=== PATIENT | male | born 1950 | race Caucasian/White ===

== ENCOUNTER 2017-08-21 14:24 | Emergency (ER) | payer MEDICARE, BC, OTHER ==
--- NOTE | 2017-08-21 15:01 | ER Document Report ---
ED Medical Screen (RME) - General Chief Complaint: Neck Pain >24hrs old Stated Complaint: NECK PAIN Notes: Patient comes in complaining of burning pain across both shoulders left-sided neck pain and circumferential squeezing pain of his neck. He did have cervical fusion done 1 year ago. I spoke with patient's neurosurgeon, Dr. bernal. He requests that patient have full C-spine x-rays with flexion-extension views. TRAVEL OUTSIDE OF THE [place] IN LAST 30 DAYS: No - Related Data Allergies/Adverse Reactions: No Known Allergies Allergy (Verified 08/21/17 14:26) Past Medical History - Social History Chew tobacco use (# tins/day): No Frequency of alcohol use: None Drug Abuse: None - Past Medical History Cardiac Medical History: Reports: Hx Heart Attack, Hx Hypercholesterolemia, Hx Hypertension Endocrine Medical History: Reports: Hx Diabetes Mellitus Type 1, Hx Diabetes Mellitus Type 2 Renal/ Medical History: Denies: Hx Peritoneal Dialysis GI Medical History: Reports: Hx Gastroesophageal Reflux Disease Past Surgical History: Reports: Hx Cardiac Surgery - CABG x3, Hx Coronary Artery Bypass Graft - 93, Hx Coronary Stent, Hx Tonsillectomy - Immunizations Immunizations up to date: Yes Hx Diphtheria, Pertussis, Tetanus Vaccination: Yes - 2000 Physical Exam - Vital signs Vitals: Temp Pulse Resp BP Pulse Ox 97.8 F 67 14 145/68 H 99 08/21/17 14:30 08/21/17 14:30 08/21/17 14:30 08/21/17 14:30 08/21/17 14:30 Course - Vital Signs Vital signs: Temp Pulse Resp BP Pulse Ox 97.8 F 67 14 145/68 H 99 08/21/17 14:30 08/21/17 14:30 08/21/17 14:30 08/21/17 14:30 08/21/17 14:30
--- NOTE | 2017-08-21 15:52 | RADIOLOGY REPORT (SQ) ---
EXAM DESCRIPTION: CERV SP 6 OR MORE COMPLETED DATE/TIME: 08/21/2017 3:22 pm REASON FOR STUDY: pain COMPARISON: None. NUMBER OF VIEWS: Seven views. TECHNIQUE: AP, lateral, obliques, flexion, extension, and odontoid radiographic images acquired of t he cervical spine. Additional swimmer's view LIMITATIONS: None. FINDINGS: MINERALIZATION: Osteopenic ALIGNMENT: Anatomic. FLEXION/EXTENSION: No instability. VERTEBRAE: Vertebral bodies of normal height. DISCS: Post fusion with metallic disc spacers, anterior fixation plate and anchoring screws at the C5 -C6 and C6-7 levels. FORAMINA: Asymmetric right-sided C3-4 facet arthropathy causes moderate to high-grade right C3-4 fora marielena narrowing. LATERAL AND POSTERIOR ELEMENTS: Lateral masses, and spinous processes without significant findings. Bilateral facet arthropathy right greater than left at C3-4 HARDWARE: None in the spine. SOFT TISSUES: No masses or calcifications. Lung apices clear. OTHER: No other significant finding. IMPRESSION: No acute findings. Old cervical spine fusion. Moderate to high-grade right C3-4 forami nal narrowing. NO INSTABILITY ON FLEXION/EXTENSION. TECHNICAL DOCUMENTATION: JOB ID: [id number] [email or web address]- All Rights Reserved
--- NOTE | 2017-08-21 16:30 | ER Document Report ---
ED General - General Chief Complaint: Neck Pain >24hrs old Stated Complaint: NECK PAIN Time Seen by Provider: 08/21/17 15:22 Mode of Arrival: Ambulatory Information source: Patient, Relative TRAVEL OUTSIDE OF THE [place] IN LAST 30 DAYS: No - HPI Patient complains to provider of: complains of burning to upper back of neck and bottom part of back of head Onset: Just prior to arrival Onset/Duration: Gradual Quality of pain: No pain Pain Level: Denies Associated symptoms: None Exacerbated by: Denies Relieved by: Denies Similar symptoms previously: No Recently seen / treated by doctor: No Notes: This 66-year-old gentleman presents emergency department ambulatory. States that he has a burning sensation to the upper portion of his neck in the back as well as the lower portion in the back of his head. Denies any other complaints. He states about [address] rosado did do a C-spine fusion on his lower C-spine. He denies any trauma. He denies any weakness in his arms or legs. He denies shortness of breath. States that he does have a paresthesia that runs down the lateral portion of his biceps on his left extremity that is chronic since an infection of his sternotomy years ago. - Related Data Allergies/Adverse Reactions: No Known Allergies Allergy (Verified 08/21/17 14:26) Past Medical History - General Information source: Patient - Social History Smoking Status: Former Smoker Chew tobacco use (# tins/day): No Frequency of alcohol use: None Drug Abuse: None Lives with: Family Family History: CAD, Hyperlipidemia, Hypertension, Malignancy Patient has suicidal ideation: No Patient has homicidal ideation: No - Past Medical History Cardiac Medical History: Reports: Hx Heart Attack, Hx Hypercholesterolemia, Hx Hypertension Endocrine Medical History: Reports: Hx Diabetes Mellitus Type 1, Hx Diabetes Mellitus Type 2 Renal/ Medical History: Denies: Hx Peritoneal Dialysis GI Medical History: Reports: Hx Gastroesophageal Reflux Disease Musculoskeltal Medical History: Reports Other - 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 Skin Medical History: Reports None Psychiatric Medical History: Reports: None Past Surgical History: Reports: Hx Cardiac Surgery - CABG x3, Hx Coronary Artery Bypass Graft - 93, Hx Coronary Stent, Hx Tonsillectomy - Immunizations Immunizations up to date: Yes Hx Diphtheria, Pertussis, Tetanus Vaccination: Yes - 2000 Review of Systems - Review of Systems Constitutional: No symptoms reported EENT: No symptoms reported Cardiovascular: No symptoms reported Respiratory: No symptoms reported Gastrointestinal: No symptoms reported Genitourinary: No symptoms reported Male Genitourinary: No symptoms reported Musculoskeletal: No symptoms reported. denies: Neck pain Skin: No symptoms reported Hematologic/Lymphatic: No symptoms reported Neurological/Psychological: Tingling Physical Exam - Vital signs Vitals: Temp Pulse Resp BP Pulse Ox 97.8 F 67 14 145/68 H 99 08/21/17 14:30 08/21/17 14:30 08/21/17 14:30 08/21/17 14:30 08/21/17 14:30 - Notes Notes: PHYSICAL EXAMINATION: GENERAL: Well-appearing, well-nourished and in no acute distress. HEAD: Atraumatic, normocephalic. Patient does have paresthesias to his C3 and C4 dermatome in his posterior head and neck area EYES: Pupils equal round and reactive to light, extraocular movements intact, sclera anicteric, conjunctiva are normal. ENT: Nares patent, oropharynx clear without exudates. Moist mucous membranes. NECK: Normal range of motion, supple without lymphadenopathy. No pain with full range of motion LUNGS: Breath sounds clear to auscultation bilaterally and equal. No wheezes rales or rhonchi. HEART: Regular rate and rhythm without murmurs ABDOMEN: Soft, nontender, nondistended abdomen. No guarding, no rebound. No masses appreciated. Musculoskeletal: Normal range of motion, no pitting or edema. No cyanosis. 5 out of 5 strength bilateral upper and lower extremities. NEUROLOGICAL: Cranial nerves grossly intact. Normal speech, normal gait. Normal sensory, motor exams. Tendon reflexes within normal limits upper extremities bilaterally. Patient does have paresthesia to his left lateral bicep area. He states this is chronic PSYCH: Normal mood, normal affect. SKIN: Warm, Dry, normal turgor, no rashes or lesions noted. Course - Re-evaluation Re-evalutation: 08/21/17 16:49 Dr. rosado's office. I did speak to the nurse Angel there. I stated that based on clinical exam as well as findings on the x-ray results I do think that the patient can have an outpatient MRI with results to Dr. rosado and follow-up with him. He stated stated that was fine. I went in and talked to the patient as well as his family member. I did give him the number to MRI and he was making a phone call to make an appointment. I had talked to MRI and they had given me the number and said for him to call to make an appointment. Patient is to call Dr. naranjo office as soon as he gets his MRI appointment and make an appointment with Dr. rosado for a few days after his MRI. Did tell patient to return to the emergency department if he has any weakness in his arms or legs fevers or any other concerns. Patient verbalized understanding he was discharged home in stable condition agreeable to the discharge plan - Vital Signs Vital signs: Temp Pulse Resp BP Pulse Ox 97.8 F 67 14 145/68 H 99 08/21/17 14:30 08/21/17 14:30 08/21/17 14:30 08/21/17 14:30 08/21/17 14:30 - Diagnostic Test Radiology reviewed: Image reviewed, Reports reviewed Radiology results interpreted by me: 08/21/17 16:49 EXAM DESCRIPTION: CERV SP 6 OR MORE COMPLETED DATE/TIME: 08/21/2017 3:22 pm REASON FOR STUDY: pain COMPARISON: None. NUMBER OF VIEWS: Seven views. TECHNIQUE: AP, lateral, obliques, flexion, extension, and odontoid radiographic images acquired of the cervical spine. Additional swimmer's view LIMITATIONS: None. FINDINGS: MINERALIZATION: Osteopenic ALIGNMENT: Anatomic. FLEXION/EXTENSION: No instability. VERTEBRAE: Vertebral bodies of normal height. DISCS: Post fusion with metallic disc spacers, anterior fixation plate and anchoring screws at the C5-C6 and C6-7 levels. FORAMINA: Asymmetric right-sided C3-4 facet arthropathy causes moderate to high- grade right C3-4 foraminal narrowing. LATERAL AND POSTERIOR ELEMENTS: Lateral masses, and spinous processes without significant findings. Bilateral facet arthropathy right greater than left at C3-4 HARDWARE: None in the spine. SOFT TISSUES: No masses or calcifications. Lung apices clear. OTHER: No other significant finding. IMPRESSION: No acute findings. Old cervical spine fusion. Moderate to high- grade right C3-4 foraminal narrowing. NO INSTABILITY ON FLEXION/EXTENSION. TECHNICAL DOCUMENTATION: JOB ID: [id number]- All Rights Reserved Dictated by: ELA JEAN MD [id number] CC: GERMAINE HOUSTON MD Discharge - Discharge Clinical Impression: parasthesia occiput Clinical Impression: (Ruled Out): Arm paresthesia, left, Condition: Stable Disposition: HOME, SELF-CARE Additional Instructions: Call [phone] to schedule your MRI. Call Dr. Rosado [phone] to schedule an appointment after your MRI is complete. Return to the emergency department immediately if you have weakness in your arms or legs or any other neurological symptoms. Forms: Follow-Up Radiology Testing Referrals: ASHER LUDWIG MD [Primary Care Provider] - Follow up as needed
[2017-08-21 16:50] VITALS: BP 133/69
== END 2017-08-21 16:45 | disposition home or self-care (01) ==
LOC: ER 14:24
DX: M48.02 Spinal stenosis, cervical region (principal); R20.2 Paresthesia of skin; Z98.1 Arthrodesis status; I25.2 Old myocardial infarction; I10 Essential (primary) hypertension; E11.9 Type 2 diabetes mellitus without complications; Z95.1 Presence of aortocoronary bypass graft; Z95.5 Presence of coronary angioplasty implant and graft; Z87.891 Personal history of nicotine dependence
CPT/HCPCS: 72050; 99284

== ENCOUNTER → 2017-08-23 | Outpatient (CLI) | payer MEDICARE, BC, OTHER ==
--- NOTE | 2017-08-23 16:35 | RADIOLOGY REPORT (SQ) ---
EXAM DESCRIPTION: MRI CERVICAL SPINE WITHOUT COMPLETED DATE/TIME: 08/23/2017 2:10 pm REASON FOR STUDY: MODERATE C SPINE FORAMINAL NARROWING/HX OF FUSION M54.2 CERVICALGIA COMPARISON: Cervical spine plain films 08/21/2017 TECHNIQUE: Sagittal and Axial imaging includes T1, T2, STIR and gradient echo sequences. LIMITATIONS: None. FINDINGS: ALIGNMENT: Normal. VERTEBRAE: Intact. BONE MARROW: Normal. No marrow replacement or reactive changes. DISCS: Diffuse decreased T2 weighted intervertebral disc signal HARDWARE: Post fusion with hardware at C5-6 and C6-7 CORD AND BASE OF BRAIN: Normal in size and signal intensity. SOFT TISSUES: No soft tissue masses. C1-C2: No significant spinal stenosis. C2-C3: No significant spinal stenosis or exit foraminal stenosis. C3-C4: Mild posterior disc bulge and bony spurring is present right greater than left. No central st enosis. High-grade right foraminal narrowing from facet and uncovertebral hypertrophy. No left fora marielena narrowing. C4-C5: Minimal posterior disc bulging. No central stenosis. Mild right foraminal narrowing from fac et and uncovertebral hypertrophy. No left foraminal stenosis C5-C6: Post fusion. No central stenosis or left foraminal narrowing. Mild right foraminal narrowing from facet and uncovertebral hypertrophy C6-C7: Post fusion. No central stenosis or left foraminal narrowing. Mild right foraminal stenosis. C7-T1: No significant spinal stenosis or exit foraminal stenosis. UPPER THORACIC: Incompletely imaged. No significant spinal stenosis or exit foraminal stenosis. OTHER: No other significant finding. IMPRESSION: Right-sided foraminal narrowing most pronounced at C3-4 TECHNICAL DOCUMENTATION: JOB ID: [id number]- All Rights Reserved
== END ==
LOC: RAD 12:14
PROVIDERS: ATTEND Emergency Medicine
DX: M54.2 Cervicalgia (principal); Z98.1 Arthrodesis status
CPT/HCPCS: 72141

== ENCOUNTER 2017-09-25 10:40 | Emergency (ER) | payer MEDICARE, BC, OTHER ==
--- NOTE | 2017-09-25 12:11 | ER Document Report ---
ED Medical Screen (RME) - General Chief Complaint: General Weakness Stated Complaint: WEAKNESS Time Seen by Provider: 09/25/17 12:08 Notes: Patient states that he has been feeling weak lately and has had a low heart rate. He states he saw his golf course laborer yesterday. He states his golf course laborer put him on carvedilol and told him that this was strengthen his heart and possibly raise the heart rate. However he states he has been taking his pulse today and has been low and he has been feeling weak like he may pass out. TRAVEL OUTSIDE OF THE [place] IN LAST 30 DAYS: No - Related Data Allergies/Adverse Reactions: No Known Allergies Allergy (Verified 09/25/17 10:42) Past Medical History - Social History Frequency of alcohol use: None Drug Abuse: None - Past Medical History Cardiac Medical History: Reports: Hx Heart Attack, Hx Hypercholesterolemia, Hx Hypertension Endocrine Medical History: Reports: Hx Diabetes Mellitus Type 1, Hx Diabetes Mellitus Type 2 Renal/ Medical History: Denies: Hx Peritoneal Dialysis GI Medical History: Reports: Hx Gastroesophageal Reflux Disease Past Surgical History: Reports: Hx Cardiac Surgery - CABG x3, Hx Coronary Artery Bypass Graft - 93, Hx Coronary Stent, Hx Tonsillectomy - Immunizations Immunizations up to date: Yes Hx Diphtheria, Pertussis, Tetanus Vaccination: Yes - 2000 Physical Exam - Vital signs Vitals: Temp Pulse Resp BP Pulse Ox 97.8 F 56 L 16 163/59 H 100 09/25/17 10:51 09/25/17 10:51 09/25/17 10:51 09/25/17 10:51 09/25/17 10:51 Course - Vital Signs Vital signs: Temp Pulse Resp BP Pulse Ox 97.8 F 56 L 16 163/59 H 100 09/25/17 10:51 09/25/17 10:51 09/25/17 10:51 09/25/17 10:51 09/25/17 10:51
[2017-09-25 12:48] LABS: ABSOLUTE EOSINOPHILS # (AUTO) 0.2 10^3/uL (0.0-0.6); ABSOLUTE LYMPHOCYTES (AUTO) 1.6 10^3/uL (0.5-4.7); ABSOLUTE MONOCYTES (AUTO) 0.6 10^3/uL (0.1-1.4); ABSOLUTE NEUT (AUTO) 4.9 10^3/uL (1.7-8.2); BASOPHILS % (AUTO) 0.6 % (0-2); EOSINOPHILS % (AUTO) 2.8 % (0-6); HEMOGLOBIN 14.4 g/dL (13.5-17.0); LYMPHOCYTES % (AUTO) 22.1 % (13-45); MEAN CORPUSCULAR HEMOGLOBIN 28.9 pg (27.0-33.4); MEAN CORPUSCULAR HGB CONC 34.3 g/dL (32.0-36.0); MEAN CORPUSCULAR VOLUME 84 fl (80-97); MONOCYTES % (AUTO) 7.9 % (3-13); PLATELET COUNT 169 10^3/uL (150-450); RED BLOOD COUNT 4.98 10^6/uL (4.35-5.55); RED CELL DISTRIBUTION WIDTH 13.7 % (11.5-14.0); SEGMENTED NEUTROPHILS % (AUTO) 66.6 % (42-78); TOTAL CELLS COUNTED % (AUTO) 100 %; WHITE BLOOD COUNT 7.3 10^3/uL (4.0-10.5)
[2017-09-25 13:04] LABS: ALANINE AMINOTRANSFERASE 46 U/L (21-72); ALBUMIN 4.9 g/dL (3.5-5.0); ALKALINE PHOSPHATASE 101 U/L (38-126); ANION GAP 10 (5-19); ASPARTATE AMINO TRANSFERASE 26 U/L (17-59); BILIRUBIN,DIRECT 0.3 mg/dL (0.0-0.4); BILIRUBIN,TOTAL 0.7 mg/dL (0.2-1.3); BLOOD UREA NITROGEN 13 mg/dL (7-20); CALCIUM 10.3 mg/dL (8.4-10.2); CARBON DIOXIDE 30 mmol/L (22-30); CHLORIDE 103 mmol/L (98-107); GLUCOSE 185 mg/dL (75-110); POTASSIUM 4.2 mmol/L (3.6-5.0); SODIUM 142.7 mmol/L (137-145); TOTAL PROTEIN 7.5 g/dL (6.3-8.2)
--- NOTE | 2017-09-25 14:31 | ER Document Report ---
ED Dizziness/Weakness - General Chief Complaint: General Weakness Stated Complaint: WEAKNESS Time Seen by Provider: 09/25/17 12:08 Notes: 67-year-old male to the emergency department chief complaint of feeling weak earlier today. Was recently started on carvedilol at a low dose. Notices his heart rate is gotten lower. Did not think that was supposed to happen. Had a three-way bypass of his coronary arteries in 1992. Followed by Dr. Buck in [facility] for cardiology issues. Denies any chest pain. Denies any shortness of breath, fever, chills, sweats, changes in bowel or bladder function or other issues at this time. TRAVEL OUTSIDE OF THE [place] IN LAST 30 DAYS: No - HPI Patient complains to provider of: Dizziness. No: Syncope, Vertigo, Weakness Onset: Just prior to arrival Onset/Duration: Better Severity: Moderate Pain Level: 0 Associated symptoms: Almost fainted, Lightheaded - Related Data Allergies/Adverse Reactions: No Known Allergies Allergy (Verified 09/25/17 10:42) Past Medical History - General Information source: Patient - Social History Smoking Status: Unknown if Ever Smoked Frequency of alcohol use: None Drug Abuse: None Lives with: Spouse/Significant other Family History: CAD, Hyperlipidemia, Hypertension, Malignancy Patient has suicidal ideation: No Patient has homicidal ideation: No - Past Medical History Cardiac Medical History: Reports: Hx Heart Attack, Hx Hypercholesterolemia, Hx Hypertension Endocrine Medical History: Reports: Hx Diabetes Mellitus Type 1, Hx Diabetes Mellitus Type 2 Renal/ Medical History: Denies: Hx Peritoneal Dialysis GI Medical History: Reports: Hx Gastroesophageal Reflux Disease Past Surgical History: Reports: Hx Cardiac Surgery - CABG x3, Hx Coronary Artery Bypass Graft - 93, Hx Coronary Stent, Hx Tonsillectomy - Immunizations Immunizations up to date: Yes Hx Diphtheria, Pertussis, Tetanus Vaccination: Yes - 2000 Review of Systems - Review of Systems Constitutional: Weakness. denies: Chills, Diaphoresis, Fever, Malaise EENT: denies: Blurred vision, Double vision, Mouth pain, Vertigo Cardiovascular: Dizziness, Lightheaded. denies: Chest pain, Palpitations, Heart racing, Syncope Gastrointestinal: denies: Abdominal pain, Diarrhea, Nausea, Vomiting Genitourinary: denies: Burning, Dysuria, Discharge Musculoskeletal: denies: Back pain, Joint pain, Muscle pain, Muscle stiffness Skin: denies: Change in color, Change in hair/nails, Dryness, Lesions, Rash Hematologic/Lymphatic: denies: Anemia, Blood clots, Easy bleeding, Easy bruising Neurological/Psychological: Weakness. denies: Confusion, Dementia, Depression, Anxiety Physical Exam - Vital signs Vitals: Temp Pulse Resp BP Pulse Ox 97.8 F 56 L 16 163/59 H 100 09/25/17 10:51 09/25/17 10:51 09/25/17 10:51 09/25/17 10:51 09/25/17 10:51 Interpretation: Normal - General General appearance: Appears well, Alert - HEENT Head: Normocephalic, Atraumatic Eyes: Normal Pupils: PERRL - Respiratory Respiratory status: No respiratory distress Chest status: Nontender Breath sounds: Normal Chest palpation: Normal - Cardiovascular Rhythm: Bradycardia Heart sounds: Normal auscultation Murmur: No - Abdominal Inspection: Normal Distension: No distension Bowel sounds: Normal Tenderness: Nontender Organomegaly: No organomegaly - Back Back: Normal, Nontender - Extremities General upper extremity: Normal inspection, Nontender, Normal color, Normal ROM , Normal temperature General lower extremity: Normal inspection, Nontender, Edema, Normal color, Normal ROM, Normal temperature, Normal weight bearing. No: Moiz's sign - Neurological Neuro grossly intact: Yes Cognition: Normal Orientation: AAOx4 Barbara Coma Scale Eye Opening: Spontaneous Barbara Coma Scale Verbal: Oriented Barbara Coma Scale Motor: Obeys Commands [place] Coma Scale Total: 15 Speech: Normal Motor strength normal: LUE, RUE, LLE, RLE Sensory: Normal - Psychological Associated symptoms: Normal affect, Normal mood - Skin Skin Temperature: Warm Skin Moisture: Dry Skin Color: Normal Course - Re-evaluation Re-evalutation: 09/25/17 15:13 Did speak with the patient's pole climber, Dr. Buck. Recommends stopping the carvedilol. Nothing further to do at this time. Patient advised. Will DC - Vital Signs Vital signs: Temp Pulse Resp BP Pulse Ox 97.8 F 56 L 14 140/62 H 100 09/25/17 10:51 09/25/17 10:51 09/25/17 14:01 09/25/17 14:01 09/25/17 14:01 - Laboratory Result Diagrams: 09/25/17 12:30 09/25/17 12:30 Laboratory results interpreted by me: 09/25/17 12:30 Glucose 185 H Calcium 10.3 H - EKG Interpretation by Me EKG shows normal: [place], Intervals, QRS Complexes, ST-T Waves Rate: Bradycardia Discharge - Discharge Clinical Impression: Bradycardia on ECG Condition: Good Disposition: HOME, SELF-CARE Additional Instructions: You have a condition known as bradycardia which is most likely caused by the medication that you were started on. Your pole climber would like you to stop the medication completely. Please call the office in the morning to schedule follow-up appointment if one is not already scheduled. If you begin to develop any worsening symptoms or concerns it is very important that you return the emergency department for evaluation.
[2017-09-25 15:22] VITALS: BP 133/68
--- NOTE | 2017-09-26 11:59 | EKG REPORT ---
SEVERITY:- NORMAL ECG - SINUS RHYTHM : Confirmed by: Kurt Garcia 26-Sep-2017 11:58:27
== END 2017-09-25 15:25 | disposition home or self-care (01) ==
LOC: ER 10:40
DX: R00.1 Bradycardia, unspecified (principal); R53.1 Weakness; R42 Dizziness and giddiness; I10 Essential (primary) hypertension; I25.2 Old myocardial infarction; Z95.5 Presence of coronary angioplasty implant and graft; Z95.1 Presence of aortocoronary bypass graft; Z82.49 Family history of ischemic heart disease and other diseases of the circulatory system
CPT/HCPCS: 36415; 80053; 84484; 85025; 93005; 93010; 99285

== ENCOUNTER 2018-01-27 15:37 | Emergency (ER) | payer MEDICARE, BC, OTHER ==
[2018-01-27] MEDS ORDERED: ASPIRIN 81 MG TABLET, CHEWABLE PO ONE (16:05)
--- NOTE | 2018-01-27 16:36 | EKG REPORT ---
SEVERITY:- ABNORMAL ECG - SINUS RHYTHM LOW VOLTAGE IN FRONTAL LEADS CONSIDER RVH OR POSTERIOR INFARCT NONSPECIFIC T ABNORMALITIES, LATERAL LEADS : Confirmed by: Kurt Garcia 27-Jan-2018 16:35:18
--- NOTE | 2018-01-27 16:50 | RADIOLOGY REPORT (SQ) ---
EXAM DESCRIPTION: CHEST SINGLE VIEW COMPLETED DATE/TIME: 01/27/2018 4:40 pm REASON FOR STUDY: chest pain COMPARISON: 04/25/2016. EXAM PARAMETERS: NUMBER OF VIEWS: One view. TECHNIQUE: Single frontal radiographic view of the chest acquired. RADIATION DOSE: NA LIMITATIONS: None. FINDINGS: LUNGS AND PLEURA: No opacities, masses or pneumothorax. No pleural effusion. MEDIASTINUM AND HILAR STRUCTURES: No masses. Contour normal. HEART AND VASCULAR STRUCTURES: Heart normal in size. Normal vasculature. BONES: No acute findings. HARDWARE: Surgical clips. Hardware in the cervical spine. OTHER: No other significant finding. IMPRESSION: NO ACUTE RADIOGRAPHIC FINDING IN THE CHEST. TECHNICAL DOCUMENTATION: JOB ID: [id number] [employer]- All Rights Reserved Reading location - IP/workstation name: [email or web address]
--- NOTE | 2018-01-27 16:51 | ER Document Report ---
ED General - General Mode of Arrival: Ambulatory Information source: Patient TRAVEL OUTSIDE OF THE [place] IN LAST 30 DAYS: No <PANFILO ZEPEDA - Last Filed: 01/27/18 20:08> <ILSA TRAN - Last Filed: 01/27/18 22:32> - General Chief Complaint: Chest Pain Stated Complaint: CHEST PAIN Time Seen by Provider: 01/27/18 16:41 Notes: Patient is a 67 year old male with hypertension, high cholesterol, cardiac stents and a history of CABGx3, coronary artery bypass graft presents to the emergency department complaining of intermittent chest pain onset today. Patient describes the chest pain as a chest tightness on the left side which spasms and radiates into his left jaw. Patient states he has chronic chest pain (located in the ribs) further stating his chest pain today is different due to it being located lower and not as sharp as his normal chest pain. Patient denies trouble breathing, diaphoresis or nausea. Patient states he is not currently having chest pain at bedside. Patient is currently taking Lisinopril and Lasix which he states he was recently prescribed. His government minister is Dr. Buck in [place], [place]. (PANFILO ZEPEDA) - Related Data Allergies/Adverse Reactions: No Known Allergies Allergy (Verified 01/27/18 15:38) Past Medical History - General Information source: Patient - Social History Smoking Status: Never Smoker Chew tobacco use (# tins/day): No Frequency of alcohol use: None Drug Abuse: None Family History: CAD, Hyperlipidemia, Hypertension, Malignancy Patient has suicidal ideation: No Patient has homicidal ideation: No - Past Medical History Cardiac Medical History: Reports: Hx Heart Attack, Hx Hypercholesterolemia, Hx Hypertension Endocrine Medical History: Reports: Hx Diabetes Mellitus Type 1, Hx Diabetes Mellitus Type 2 GI Medical History: Reports: Hx Gastroesophageal Reflux Disease Past Surgical History: Reports: Hx Cardiac Surgery - CABG x3, Hx Coronary Artery Bypass Graft - 93, Hx Coronary Stent, Hx Tonsillectomy - Immunizations Immunizations up to date: Yes Hx Diphtheria, Pertussis, Tetanus Vaccination: Yes - 2000 <PANFILO ZEPEDA - Last Filed: 01/27/18 20:08> Past Surgical History: Reports: Hx Cardiac Surgery - CABG x3, with complicated postoperative course including infection <LISA TRAN - Last Filed: 01/27/18 22:32> Review of Systems - Review of Systems Constitutional: No symptoms reported EENT: No symptoms reported Cardiovascular: See HPI, Chest pain Respiratory: No symptoms reported Gastrointestinal: No symptoms reported Genitourinary: No symptoms reported Male Genitourinary: No symptoms reported Musculoskeletal: No symptoms reported Skin: No symptoms reported Hematologic/Lymphatic: No symptoms reported Neurological/Psychological: No symptoms reported -: Yes All other systems reviewed and negative <KATELYNPANFILO CAM - Last Filed: 01/27/18 20:08> Physical Exam <PANFILO ZEPEDA - Last Filed: 01/27/18 20:08> <LISA TRAN - Last Filed: 01/27/18 22:32> - Vital signs Vitals: Temp Pulse Resp BP Pulse Ox 97.9 F 56 L 14 144/64 H 100 01/27/18 15:56 01/27/18 15:56 01/27/18 15:56 01/27/18 15:56 01/27/18 15:56 - Notes Notes: GENERAL: Alert, interacts well. No acute distress. HEAD: Normocephalic, atraumatic. EYES: Pupils equal, round, and reactive to light. Extraocular movements intact. ENT: Oral mucosa moist, tongue midline. NECK: Full range of motion. Supple. Trachea midline. LUNGS: Clear to auscultation bilaterally, no wheezes, rales, or rhonchi. No respiratory distress. HEART: Regular rate and rhythm. No murmurs, gallops, or rubs. Deformity on to the sternum consistent with surgical history. No reproducible chest pain to palpation. ABDOMEN: Soft, non-tender. Non-distended. Bowel sounds present in all 4 quadrants. EXTREMITIES: Moves all 4 extremities spontaneously. 1+ pitting edema to BLE. NEUROLOGICAL: Alert and oriented x3. Normal speech. PSYCH: Normal affect, normal mood. SKIN: Warm, dry. (PANFILO ZEPEDA) Course - Laboratory Result Diagrams: 01/27/18 17:20 01/27/18 17:20 <PANFILO ZEPEDA - Last Filed: 01/27/18 20:08> - Laboratory Result Diagrams: 01/27/18 17:20 01/27/18 17:20 <LISA TRAN - Last Filed: 01/27/18 22:32> - Re-evaluation Re-evalutation: 01/27/18 22:29 CBC shows mild anemia with hemoglobin 12.9, platelets slightly low at 146, chemistries grossly unremarkable, troponin negative 2, EKG is nonischemic, chest x-ray only shows postoperative changes consistent with bypass surgery and then infections with complicated postoperative course. Nothing acute. Patient is currently chest pain-free. This pain appears quite low risk to be of cardiac etiology, he has a government minister and an appointment with his government minister tomorrow morning. No evidence of ongoing ischemia. Patient is able to arrange a stress test with his government minister as an outpatient should the government minister find this necessary. Patient wishes to go home and I agreed that this is likely safe. Patient was given copies of his labs and his EKG. Discharged home. (LISA TRAN) - Vital Signs Vital signs: Temp Pulse Resp BP Pulse Ox 98.8 F 56 L 18 116/65 97 01/27/18 21:39 01/27/18 15:56 01/27/18 21:39 01/27/18 21:39 01/27/18 21:39 - Laboratory Laboratory results interpreted by me: 01/27/18 01/27/18 17:20 17:20 RBC 4.33 L Hgb 12.9 L Hct 37.8 L RDW 14.2 H Plt Count 146 L Glucose 139 H - EKG Interpretation by Me Additional EKG results interpreted by me: 01/27/18 22:31 EKG shows sinus bradycardia cardia at a rate of 57, normal axis, normal intervals, no ST segment elevations or depressions, nonspecific T-wave inversions in aVL, T-wave flattening in lead I, there is rapid R-wave progression per my interpretation. (LISA TRAN) Discharge <PANFILO ZEPEDA - Last Filed: 01/27/18 20:08> <LISA TRAN - Last Filed: 01/27/18 22:32> - Discharge Clinical Impression: Atypical chest pain Condition: Stable Disposition: HOME, SELF-CARE Additional Instructions: Today we checked your troponin twice and it was negative, your EKG and troponin did not show any sign of a heart attack, your chest x-ray did not show any changes. Please keep your follow-up appointment with Dr. Buck tomorrow morning. Please return if your chest pain should change or worsen. Referrals: ASHER LUDWIG MD [Primary Care Provider] - Follow up as needed Scribe Attestation: 01/27/18 22:31 I personally performed the services described in the documentation, reviewed and edited the documentation which was dictated to the scribe in my presence, and it accurately records my words and actions. (LISA TRAN) Scribe Documentation - Scribe Written by Scribe:: Cesia King, 01/27/2018 17:15 acting as scribe for :: Ovidio <PANFILO ZEPEDA - Last Filed: 01/27/18 20:08>
[2018-01-27 17:39] LABS: ABSOLUTE EOSINOPHILS # (AUTO) 0.2 10^3/uL (0.0-0.6); ABSOLUTE LYMPHOCYTES (AUTO) 2.1 10^3/uL (0.5-4.7); ABSOLUTE MONOCYTES (AUTO) 0.6 10^3/uL (0.1-1.4); ABSOLUTE NEUT (AUTO) 4.3 10^3/uL (1.7-8.2); BASOPHILS % (AUTO) 0.5 % (0-2); EOSINOPHILS % (AUTO) 3.2 % (0-6); HEMATOCRIT 37.8 % (37.9-51.0); HEMOGLOBIN 12.9 g/dL (13.5-17.0); LYMPHOCYTES % (AUTO) 28.3 % (13-45); MEAN CORPUSCULAR HEMOGLOBIN 29.9 pg (27.0-33.4); MEAN CORPUSCULAR HGB CONC 34.2 g/dL (32.0-36.0); MEAN CORPUSCULAR VOLUME 87 fl (80-97); MONOCYTES % (AUTO) 8.7 % (3-13); PLATELET COUNT 146 10^3/uL (150-450); RED BLOOD COUNT 4.33 10^6/uL (4.35-5.55); RED CELL DISTRIBUTION WIDTH 14.2 % (11.5-14.0); SEGMENTED NEUTROPHILS % (AUTO) 59.3 % (42-78); TOTAL CELLS COUNTED % (AUTO) 100 %; WHITE BLOOD COUNT 7.3 10^3/uL (4.0-10.5)
[2018-01-27 17:59] LABS: ALANINE AMINOTRANSFERASE 38 U/L (21-72); ALBUMIN 4.6 g/dL (3.5-5.0); ALKALINE PHOSPHATASE 84 U/L (38-126); ANION GAP 12 (5-19); ASPARTATE AMINO TRANSFERASE 25 U/L (17-59); BILIRUBIN,DIRECT 0.4 mg/dL (0.0-0.4); BILIRUBIN,TOTAL 0.5 mg/dL (0.2-1.3); BLOOD UREA NITROGEN 17 mg/dL (7-20); CALCIUM 9.6 mg/dL (8.4-10.2); CARBON DIOXIDE 27 mmol/L (22-30); CHLORIDE 106 mmol/L (98-107); CREATINE KINASE 84 U/L (55-170); GLUCOSE 139 mg/dL (75-110); POTASSIUM 4.5 mmol/L (3.6-5.0); TOTAL PROTEIN 7.1 g/dL (6.3-8.2)
[2018-01-27 18:11] LABS: CREATINE KINASE MB 1.09 ng/mL (<4.55); TROPONIN I < 0.012 ng/mL
[2018-01-27 21:45] VITALS: BP 116/65
== END 2018-01-27 21:44 | disposition home or self-care (01) ==
LOC: ER 15:37
DX: R07.89 Other chest pain (principal); R68.84 Jaw pain; Z79.899 Other long term (current) drug therapy; Z95.1 Presence of aortocoronary bypass graft; I10 Essential (primary) hypertension; E78.00 Pure hypercholesterolemia, unspecified; I25.2 Old myocardial infarction; E11.9 Type 2 diabetes mellitus without complications
CPT/HCPCS: 93005; 99285; 36415; 82553; 82550; 85025; 80053; 84484; 71045; 93010; A9270

== ENCOUNTER 2018-04-22 18:21 | Emergency (ER) | payer MEDICARE, BC, OTHER ==
[2018-04-22] MEDS ORDERED: ASPIRIN 81 MG TABLET, CHEWABLE PO ONE (20:03)
--- NOTE | 2018-04-22 20:04 | ER Document Report ---
ED Medical Screen (RME) - General Chief Complaint: Chest Pain Stated Complaint: DIFFICULTY BREATHING Time Seen by Provider: 04/22/18 20:03 TRAVEL OUTSIDE OF THE [place] IN LAST 30 DAYS: No - HPI Notes: 04/22/18 20:04 Chest pain with left shoulder numbness left facial numbness starting today symptoms are now resolved - Related Data Allergies/Adverse Reactions: No Known Allergies Allergy (Verified 01/27/18 15:38) Past Medical History - Social History Chew tobacco use (# tins/day): No Frequency of alcohol use: None Drug Abuse: None - Past Medical History Cardiac Medical History: Reports: Hx Heart Attack, Hx Hypercholesterolemia, Hx Hypertension Endocrine Medical History: Reports: Hx Diabetes Mellitus Type 1, Hx Diabetes Mellitus Type 2 Renal/ Medical History: Denies: Hx Peritoneal Dialysis GI Medical History: Reports: Hx Gastroesophageal Reflux Disease Past Surgical History: Reports: Hx Cardiac Surgery - CABG x3, with complicated postoperative course including infection, Hx Coronary Artery Bypass Graft - 93, Hx Coronary Stent, Hx Orthopedic Surgery, Hx Tonsillectomy - Immunizations Immunizations up to date: Yes Hx Diphtheria, Pertussis, Tetanus Vaccination: Yes - 2000 Review of Systems - Review of Systems Cardiovascular: Chest pain Physical Exam - Vital signs Vitals: Temp Pulse Resp BP Pulse Ox 98.2 F 61 20 139/60 H 100 04/22/18 18:30 04/22/18 18:30 04/22/18 18:30 04/22/18 18:30 04/22/18 18:30 - Respiratory Respiratory status: No respiratory distress Chest status: Nontender Breath sounds: Normal Chest palpation: Normal Course - Vital Signs Vital signs: Temp Pulse Resp BP Pulse Ox 98.2 F 61 20 139/60 H 100 04/22/18 18:30 04/22/18 18:30 04/22/18 18:30 04/22/18 18:30 04/22/18 18:30 Doctor's Discharge - Discharge Referrals: ASHER LUDWIG MD [Primary Care Provider] - Follow up as needed
[2018-04-22 20:19] LABS: ABSOLUTE BASOPHILS # (AUTO) 0.1 10^3/uL (0.0-0.2); ABSOLUTE EOSINOPHILS # (AUTO) 0.2 10^3/uL (0.0-0.6); ABSOLUTE LYMPHOCYTES (AUTO) 2.3 10^3/uL (0.5-4.7); ABSOLUTE MONOCYTES (AUTO) 0.6 10^3/uL (0.1-1.4); ABSOLUTE NEUT (AUTO) 3.3 10^3/uL (1.7-8.2); BASOPHILS % (AUTO) 0.8 % (0-2); EOSINOPHILS % (AUTO) 3.8 % (0-6); HEMATOCRIT 37.8 % (37.9-51.0); LYMPHOCYTES % (AUTO) 35.7 % (13-45); MEAN CORPUSCULAR HEMOGLOBIN 29.7 pg (27.0-33.4); MEAN CORPUSCULAR HGB CONC 34.4 g/dL (32.0-36.0); MEAN CORPUSCULAR VOLUME 86 fl (80-97); MONOCYTES % (AUTO) 9.7 % (3-13); PLATELET COUNT 173 10^3/uL (150-450); RED BLOOD COUNT 4.38 10^6/uL (4.35-5.55); RED CELL DISTRIBUTION WIDTH 13.3 % (11.5-14.0); TOTAL CELLS COUNTED % (AUTO) 100 %; WHITE BLOOD COUNT 6.6 10^3/uL (4.0-10.5)
--- NOTE | 2018-04-22 20:32 | RADIOLOGY REPORT (SQ) ---
EXAM DESCRIPTION: CHEST 2 VIEWS COMPLETED DATE/TIME: 04/22/2018 8:21 pm REASON FOR STUDY: cp COMPARISON: 04/25/2016 EXAM PARAMETERS: NUMBER OF VIEWS: two views TECHNIQUE: Digital Frontal and Lateral radiographic views of the chest acquired. RADIATION DOSE: NA LIMITATIONS: none FINDINGS: LUNGS AND PLEURA: Mild subsegmental atelectasis in the lung bases. MEDIASTINUM AND HILAR STRUCTURES: No masses or contour abnormalities. HEART AND VASCULAR STRUCTURES: Heart normal size. No evidence for failure. BONES: No acute findings. HARDWARE: Surgical clips. OTHER: No other significant finding. IMPRESSION: NO ACUTE RADIOGRAPHIC FINDING IN THE CHEST. TECHNICAL DOCUMENTATION: JOB ID: [id number] [employer]- All Rights Reserved Reading location - IP/workstation name: [email or web address]
[2018-04-22 20:44] LABS: ALANINE AMINOTRANSFERASE 33 U/L (21-72); ALBUMIN 4.5 g/dL (3.5-5.0); ALKALINE PHOSPHATASE 82 U/L (38-126); ANION GAP 14 (5-19); ASPARTATE AMINO TRANSFERASE 27 U/L (17-59); BILIRUBIN,DIRECT 0.4 mg/dL (0.0-0.4); BILIRUBIN,TOTAL 0.6 mg/dL (0.2-1.3); BLOOD UREA NITROGEN 15 mg/dL (7-20); CALCIUM 9.3 mg/dL (8.4-10.2); CARBON DIOXIDE 27 mmol/L (22-30); CHLORIDE 104 mmol/L (98-107); CREATINE KINASE 116 U/L (55-170); GLUCOSE 127 mg/dL (75-110); POTASSIUM 3.9 mmol/L (3.6-5.0); SODIUM 144.8 mmol/L (137-145); TOTAL PROTEIN 7.6 g/dL (6.3-8.2)
[2018-04-22 21:00] LABS: CREATINE KINASE MB 1.41 ng/mL (<4.55)
[2018-04-22 21:01] LABS: TROPONIN I < 0.012 ng/mL
--- NOTE | 2018-04-22 22:16 | EKG REPORT ---
SEVERITY:- BORDERLINE ECG - SINUS RHYTHM LOW VOLTAGE IN FRONTAL LEADS CONSIDER [facility]H OR POSTERIOR INFARCT : Confirmed by: Kurt Garcia 22-Apr-2018 22:16:04
--- NOTE | 2018-04-22 23:45 | ER Document Report ---
ED General - General Chief Complaint: Chest Pain Stated Complaint: DIFFICULTY BREATHING Time Seen by Provider: 04/22/18 20:03 Notes: Patient is a 67-year-old male with history of coronary disease and coronary bypass. His coronary pass was performed 25 years ago. He does have history of chronic recurrent chest pain. He is followed by Dr. Buck. He said today he had a odd lump" type feeling in his chest followed by some numbness going into his shoulder and up his jaw and face. Symptoms resolved proximal 20 minutes after arrival to the ER. He has had no recurrence of his symptoms since. He says he does frequently have this numbness feeling in the shoulder because of a history of an injury to his shoulder. He says usually does not have a lump in the chest which was different. He has no other complaints at this time. TRAVEL OUTSIDE OF THE [place] IN LAST 30 DAYS: No - Related Data Allergies/Adverse Reactions: No Known Allergies Allergy (Verified 01/27/18 15:38) Past Medical History - Social History Smoking Status: Former Smoker Chew tobacco use (# tins/day): No Frequency of alcohol use: None Drug Abuse: None Family History: CAD, Hyperlipidemia, Hypertension, Malignancy Patient has suicidal ideation: No Patient has homicidal ideation: No - Past Medical History Cardiac Medical History: Reports: Hx Heart Attack, Hx Hypercholesterolemia, Hx Hypertension Endocrine Medical History: Reports: Hx Diabetes Mellitus Type 1, Hx Diabetes Mellitus Type 2 Renal/ Medical History: Denies: Hx Peritoneal Dialysis GI Medical History: Reports: Hx Gastroesophageal Reflux Disease Past Surgical History: Reports: Hx Cardiac Surgery - CABG x3, with complicated postoperative course including infection, Hx Coronary Artery Bypass Graft - 93, Hx Coronary Stent, Hx Orthopedic Surgery, Hx Tonsillectomy - Immunizations Immunizations up to date: Yes Hx Diphtheria, Pertussis, Tetanus Vaccination: Yes - 2000 Review of Systems - Review of Systems Notes: My Normal Review Basic REVIEW OF SYSTEMS: CONSTITUTIONAL : Denies fever, chills, or sweats. Denies recent illness. EENT: Denies eye, ear, throat, or mouth pain or symptoms. Denies nasal or sinus congestion. CARDIOVASCULAR: "lump" sensation in chest RESPIRATORY: Denies cough, cold, or chest congestion. Denies shortness of breath, difficulty breathing, or wheezing. GASTROINTESTINAL: Denies abdominal pain. Denies nausea, vomiting, or diarrhea. MUSCULOSKELETAL: Denies neck or back pain or joint pain or swelling. SKIN: Denies rash or skin lesions. NEUROLOGICAL: Denies altered mental status or loss of consciousness. Denies headache. Denies weakness or paralysis or loss of use of either side. Denies problems with gait or speech. Some numbness that went into left shoulder. ALL OTHER SYSTEMS REVIEWED AND NEGATIVE. Physical Exam - Vital signs Vitals: Temp Pulse Resp BP Pulse Ox 98.2 F 61 20 139/60 H 100 04/22/18 18:30 04/22/18 18:30 04/22/18 18:30 04/22/18 18:30 04/22/18 18:30 - Notes Notes: General Appearance: Well nourished, alert, cooperative, no acute distress, no obvious discomfort. Well-appearing. Vitals: reviewed, See vital signs table. Head: no swelling or tenderness to the head Eyes: PERRL, EOMI, Conjuctiva clear Mouth: No decreasd moisture Neck: Supple, no neck tenderness, No carotid bruit Chest wall: No significant chest pain to palpation of chest wall. Lungs: No wheezing, No rales, No rhonci, No accessory muscle use, good air exchange bilaterally. Heart: Normal rate, Regular rythm, No murmur, no rub Abdomen: Normal BS, soft, No rigidity, No abdominal tenderness, No guarding, no rebound, no abdominal masses, no organomegaly Extremities: strength 5/5 in all extremities, good pulses in all extremities, no swelling or tenderness in the extremities, no edema. Skin: warm, dry, appropriate color, no rash Neuro: speech clear, oriented x 3, normal affect, responds appropriately to questions. Course - Re-evaluation Re-evalutation: 04/23/18 05:31 Patient looks well. His initial troponin is negative. His EKG does not show any concerning findings. I talked to the patient's at length and informed him that I strongly recommend doing a repeat troponin being that his first troponin was done shortly after his pain has began and therefore is not really indicative of ruling out an OR. I informed him it takes time for troponin rise and that is what we should do repeat. Patient is understanding of this but says that he does not want to stay. He says that he wants to leave and understands my concerns. 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 He agrees to return to ER immediately if he has any recurrence chest pain or feels unwell. He is understanding that it cannot rule out OR with the single troponin alone and that he could go on to have an OR which could be very dangerous or life-threatening. Patient is awake and alert. He demonstrates capacity to make his own decisions. He has no signs of being altered in any way. Patient will be discharged as he requests. Dictation of this chart was performed using voice recognition software; therefore, there may be some unintended grammatical errors. - Vital Signs Vital signs: Temp Pulse Resp BP Pulse Ox 97.0 F 58 L 18 120/60 97 04/23/18 00:11 04/23/18 00:11 04/23/18 00:11 04/23/18 00:11 04/23/18 00:11 - Laboratory Result Diagrams: 04/22/18 20:08 04/22/18 20:08 Laboratory results interpreted by me: 04/22/18 04/22/18 20:08 20:08 Hgb 13.0 L Hct 37.8 L Glucose 127 H - EKG Interpretation by Me Additional EKG results interpreted by me: 04/22/18 23:45 EKG is reviewed and interpreted by me. EKG shows sinus rhythm with rate of [address] segment elevation or depression. No ischemic T-wave inversions. NV interval, QRS duration, QTc intervals are within normal range. Old EKG for comparison is from January 27, 2018. Discharge - Discharge Clinical Impression: Chest discomfort Condition: Good Disposition: HOME, SELF-CARE Additional Instructions: PLease return to the ER imemdiately if you have any recurrence of your symptoms. As discussed with you we recommend a repeat of your heart enzymes because your first set done here is not far enough after the onset of your symptoms to show an appropriate rise. There is no way to determine whether or you will have a bad outcome within the next 24 hours and this is why we prefer you to stay. We respect your decision to leave and understand that you do have prior priorities. Even though you are leaving we are not upset or mad. We just want what is best for you and therefore we encourage you to come back anytime if you have any recurrence of your symptoms. Please call your doctor first thing in the am to make a close follow up appointment within the next 1-2 days. Referrals: ASHER LUDWIG MD [Primary Care Provider] - Follow up as needed
[2018-04-23 00:13] VITALS: BP 120/60
== END 2018-04-23 00:14 | disposition home or self-care (01) ==
LOC: ER 18:21
DX: R07.9 Chest pain, unspecified (principal); R06.02 Shortness of breath; I25.10 Atherosclerotic heart disease of native coronary artery without angina pectoris; Z95.1 Presence of aortocoronary bypass graft; Z87.891 Personal history of nicotine dependence; I10 Essential (primary) hypertension; I25.2 Old myocardial infarction; E11.9 Type 2 diabetes mellitus without complications
CPT/HCPCS: 93005; 99285; 36415; 82553; 82550; 85025; 80053; 84484; 71046; 93010; A9270

== ENCOUNTER 2018-05-23 12:47 | Observation (INO) | payer MEDICARE, BC, OTHER ==
[2018-05-23] MEDS ORDERED: ONDANSETRON 4 MG TAB.RAPDIS PO ONE (13:11)
[2018-05-23] MEDS ORDERED: NORMAL SALINE 1000 ML 1,000 ML IV ONE ×2 (13:11→14:31)
[2018-05-23] MEDS ORDERED: METOCLOPRAMIDE HCL INJ/PF 10 MG/2 ML SDV IV ONE (13:12)
[2018-05-23] MEDS ORDERED: DIPHENHYDRAMINE HCL 50 MG/ML VIAL IV ONE (13:12)
--- NOTE | 2018-05-23 13:13 | ER Document Report ---
ED Medical Screen (RME) - General Chief Complaint: Vomiting/Diarrhea Stated Complaint: VOMITING/DIARRHEA Time Seen by Provider: 05/23/18 13:11 Mode of Arrival: Ambulatory Information source: Patient Notes: This is a 67-year-old man with a history of her disease (CABG x3), hypertension , diabetes who presents to the emergency room with nausea, vomiting, diarrhea since last night. Patient denies any chest pain, shortness of breath or abdominal pain. PCP: [facility] No known drug allergies TRAVEL OUTSIDE OF THE [place] IN LAST 30 DAYS: No - Related Data Allergies/Adverse Reactions: No Known Allergies Allergy (Verified 05/23/18 12:47) Past Medical History - Social History Chew tobacco use (# tins/day): No Frequency of alcohol use: quite in 1975 Drug Abuse: None - Past Medical History Cardiac Medical History: Reports: Hx Heart Attack, Hx Hypercholesterolemia, Hx Hypertension Endocrine Medical History: Reports: Hx Diabetes Mellitus Type 1, Hx Diabetes Mellitus Type 2 Renal/ Medical History: Denies: Hx Peritoneal Dialysis GI Medical History: Reports: Hx Gastroesophageal Reflux Disease Past Surgical History: Reports: Hx Cardiac Surgery - CABG x3, with complicated postoperative course including infection, Hx Coronary Artery Bypass Graft - 93, Hx Coronary Stent, Hx Orthopedic Surgery, Hx Tonsillectomy - Immunizations Immunizations up to date: Yes Hx Diphtheria, Pertussis, Tetanus Vaccination: Yes - 2000 Doctor's Discharge - Discharge Referrals: ASHER LUDWIG MD [Primary Care Provider] - Follow up as needed
[2018-05-23 13:47] LABS: ABSOLUTE EOSINOPHILS # (AUTO) 0.1 10^3/uL (0.0-0.6); ABSOLUTE LYMPHOCYTES (AUTO) 1.2 10^3/uL (0.5-4.7); ABSOLUTE MONOCYTES (AUTO) 0.5 10^3/uL (0.1-1.4); ABSOLUTE NEUT (AUTO) 8.6 10^3/uL (1.7-8.2); BASOPHILS % (AUTO) 0.2 % (0-2); EOSINOPHILS % (AUTO) 0.5 % (0-6); HEMATOCRIT 38.6 % (37.9-51.0); HEMOGLOBIN 13.3 g/dL (13.5-17.0); LYMPHOCYTES % (AUTO) 11.7 % (13-45); MEAN CORPUSCULAR HEMOGLOBIN 29.8 pg (27.0-33.4); MEAN CORPUSCULAR HGB CONC 34.5 g/dL (32.0-36.0); MEAN CORPUSCULAR VOLUME 86 fl (80-97); MONOCYTES % (AUTO) 4.4 % (3-13); PLATELET COUNT 190 10^3/uL (150-450); RED BLOOD COUNT 4.47 10^6/uL (4.35-5.55); RED CELL DISTRIBUTION WIDTH 13.5 % (11.5-14.0); SEGMENTED NEUTROPHILS % (AUTO) 83.2 % (42-78); TOTAL CELLS COUNTED % (AUTO) 100 %; WHITE BLOOD COUNT 10.3 10^3/uL (4.0-10.5)
[2018-05-23 14:15] LABS: ALANINE AMINOTRANSFERASE 32 U/L (21-72); ALKALINE PHOSPHATASE 84 U/L (38-126); ANION GAP 16 (5-19); ASPARTATE AMINO TRANSFERASE 23 U/L (17-59); BILIRUBIN,DIRECT 0.8 mg/dL (0.0-0.4); BILIRUBIN,TOTAL 1.1 mg/dL (0.2-1.3); BLOOD UREA NITROGEN 42 mg/dL (7-20); CALCIUM 9.8 mg/dL (8.4-10.2); CARBON DIOXIDE 22 mmol/L (22-30); CHLORIDE 101 mmol/L (98-107); GLUCOSE 143 mg/dL (75-110); POTASSIUM 5.3 mmol/L (3.6-5.0); SODIUM 138.8 mmol/L (137-145); TOTAL PROTEIN 7.9 g/dL (6.3-8.2)
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
--- NOTE | 2018-05-23 16:04 | RADIOLOGY REPORT (SQ) ---
EXAM DESCRIPTION: U/S RETROPERITON (RENAL/AORTA) COMPLETED DATE/TIME: 05/23/2018 3:56 pm REASON FOR STUDY: acute renal failure eval obstruction COMPARISON: None. TECHNIQUE: Dynamic and static grayscale images acquired of the kidneys and bladder and recorded on P ACS. Additional selected color Doppler and spectral images recorded. LIMITATIONS: None. FINDINGS: RIGHT KIDNEY: Normal size. Normal echogenicity. No solid or suspicious masses. No hydronep hrosis. No calcifications. LEFT KIDNEY: Normal size. Normal echogenicity. No solid or suspicious masses. No hydronephrosis. No calcifications. BLADDER: No masses. OTHER FINDINGS: No other significant finding. IMPRESSION: NORMAL RENAL AND BLADDER ULTRASOUND. TECHNICAL DOCUMENTATION: JOB ID: [id number] [employer]- All Rights Reserved Reading location - IP/workstation name: [email or web address]
[2018-05-23 17:02] LABS: APPEARANCE,URINE SLIGHTLY-CLOUDY; BILIRUBIN,URINE NEGATIVE (NEGATIVE); COLOR,URINE YELLOW; GLUCOSE, URINE NEGATIVE (NEGATIVE); KETONES,URINE 20 mg/dL (NEGATIVE); LEUKOCYTE ESTERASE,URINE NEGATIVE (NEGATIVE); NITRITE,URINE NEGATIVE (NEGATIVE); PROTEIN,URINE NEGATIVE (NEGATIVE); URINE SPECIFIC GRAVITY 1.014; UROBILINOGEN,URINE NEGATIVE mg/dL (<2.0)
[2018-05-23] MEDS ORDERED: ACETAMINOPHEN 325 MG TABLET PO PRN (17:03)
[2018-05-23] MEDS ORDERED: ONDANSETRON HCL INJ/PF 4 MG/2 ML SDV IV PRN (17:03)
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
[2018-05-23] MEDS: ENOXAPARIN SODIUM INJ 30 MG/0.3 ML DISP.SYRIN SUBCUT SCH (21:06)
[2018-05-24 07:37] LABS: HEMATOCRIT 33.8 % (37.9-51.0); HEMOGLOBIN 11.8 g/dL (13.5-17.0); MEAN CORPUSCULAR HEMOGLOBIN 30.4 pg (27.0-33.4); MEAN CORPUSCULAR HGB CONC 34.8 g/dL (32.0-36.0); MEAN CORPUSCULAR VOLUME 87 fl (80-97); PLATELET COUNT 142 10^3/uL (150-450); RED BLOOD COUNT 3.88 10^6/uL (4.35-5.55); RED CELL DISTRIBUTION WIDTH 13.6 % (11.5-14.0); WHITE BLOOD COUNT 7.4 10^3/uL (4.0-10.5)
[2018-05-24 07:59] LABS: ALANINE AMINOTRANSFERASE 34 U/L (21-72); ALBUMIN 3.9 g/dL (3.5-5.0); ALKALINE PHOSPHATASE 71 U/L (38-126); ANION GAP 12 (5-19); ASPARTATE AMINO TRANSFERASE 27 U/L (17-59); BILIRUBIN,DIRECT 0.4 mg/dL (0.0-0.4); BILIRUBIN,TOTAL 0.7 mg/dL (0.2-1.3); BLOOD UREA NITROGEN 39 mg/dL (7-20); CALCIUM 8.7 mg/dL (8.4-10.2); CARBON DIOXIDE 21 mmol/L (22-30); CHLORIDE 107 mmol/L (98-107); GLUCOSE 97 mg/dL (75-110); POTASSIUM 4.9 mmol/L (3.6-5.0); SODIUM 139.5 mmol/L (137-145); TOTAL PROTEIN 6.3 g/dL (6.3-8.2)
[2018-05-24] MEDS: ENOXAPARIN SODIUM INJ 30 MG/0.3 ML DISP.SYRIN SUBCUT SCH (09:21)
[2018-05-24] MEDS: MAGNESIUM SULFATE/D5W 1 GM/100 ML RTUPB IV SCH ×2 (09:22→10:47)
[2018-05-24 09:52] LABS: URINE CREATININE 185.4 mg/dL (22-328)
[2018-05-24] MEDS ORDERED: DEXTROSE 50%-WATER 25 GM/50 ML DISP.SYRIN IV PRN ×2 (13:08)
[2018-05-24] MEDS ORDERED: GLUCAGON,HUMAN RECOMB 1 MG INJ IM PRN (13:08)
[2018-05-24] MEDS ORDERED: INSULIN LISPRO 100 UNIT/ML 3 ML VIAL SUBCUT PRN (13:08)
[2018-05-24] MEDS ORDERED: DEXTROSE 40% GEL 15 GM TUBE PO PRN ×2 (13:08)
[2018-05-24] MEDS ORDERED: NORMAL SALINE 1000 ML 1,000 ML IV ONE (13:47)
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
[2018-05-24] MEDS: NORMAL SALINE 1000 ML 1,000 ML IV PRN (15:21)
[2018-05-24] MEDS: LANSOPRAZOLE 30 MG TAB.RAP.DR PO SCH (17:56)
[2018-05-24] MEDS: PREGABALIN 100 MG CAPSULE PO SCH (17:56)
[2018-05-24] MEDS ORDERED: PRAMIPEXOLE DI-HCL 0.5 MG TABLET PO SCH (22:00)
[2018-05-24] MEDS ORDERED: (PENDING PHARMACY ID) (Rabeprazole Sodium [Aciphex] 20 MG) PO SCH (22:00)
[2018-05-24] MEDS ORDERED: SIMVASTATIN 40 MG TABLET PO SCH (22:00)
[2018-05-24] MEDS ORDERED: EZETIMIBE PO SCH (22:00)
[2018-05-24] MEDS ORDERED: SIMVASTATIN PO SCH (22:00)
[2018-05-24] MEDS ORDERED: EZETIMIBE 10 MG TABLET PO SCH (22:00)
[2018-05-25] MEDS: NORMAL SALINE 1000 ML 1,000 ML IV PRN (01:14)
[2018-05-25] MEDS: LANSOPRAZOLE 30 MG TAB.RAP.DR PO SCH (05:41)
[2018-05-25] MEDS: PREGABALIN 100 MG CAPSULE PO SCH (09:14)
[2018-05-25] MEDS: ENOXAPARIN SODIUM INJ 30 MG/0.3 ML DISP.SYRIN SUBCUT SCH (09:14)
[2018-05-25 09:59] LABS: ANION GAP 8 (5-19); BLOOD UREA NITROGEN 29 mg/dL (7-20); CALCIUM 8.9 mg/dL (8.4-10.2); CARBON DIOXIDE 22 mmol/L (22-30); CHLORIDE 110 mmol/L (98-107); GLUCOSE 204 mg/dL (75-110); PHOSPHORUS 2.4 mg/dL (2.5-4.5); POTASSIUM 5.2 mmol/L (3.6-5.0); SODIUM 139.9 mmol/L (137-145)
[2018-05-25] MEDS ORDERED: LISINOPRIL 10 MG TABLET PO SCH (10:00)
[2018-05-25] MEDS ORDERED: NORMAL SALINE 1000 ML 1,000 ML IV ONE (10:38)
[2018-05-25] MEDS: MAGNESIUM SULFATE/D5W 1 GM/100 ML RTUPB IV SCH ×2 (12:01→13:13)
[2018-05-25 15:16] VITALS: BP 117/57
== END 2018-05-25 15:48 | disposition home or self-care (01) ==
LOC: ER 12:47 → EH 19:15 → 4N 23:14
PROVIDERS: ADMIT Internal Medicine; ATTEND Internal Medicine
DX: N17.9 Acute kidney failure, unspecified (principal); X37.0XXA Hurricane, initial encounter; Z59.1 Inadequate housing; E86.0 Dehydration; E11.9 Type 2 diabetes mellitus without complications; I10 Essential (primary) hypertension; I25.810 Atherosclerosis of coronary artery bypass graft(s) without angina pectoris; R19.7 Diarrhea, unspecified; K21.9 Gastro-esophageal reflux disease without esophagitis; E78.5 Hyperlipidemia, unspecified; I25.2 Old myocardial infarction; Z87.891 Personal history of nicotine dependence; Z82.49 Family history of ischemic heart disease and other diseases of the circulatory system; Z95.5 Presence of coronary angioplasty implant and graft; Z95.1 Presence of aortocoronary bypass graft; Z79.84 Long term (current) use of oral hypoglycemic drugs; Z79.899 Other long term (current) drug therapy
CPT/HCPCS: 99285; 96372; 96361; 96374; 96375; 36415 ×3; 82550; 83690; 83735 ×2; 84100; 82570; 84300; 85025; 85027; 80048; 80053 ×2; 81001; 83036; 83880; 76770; G0378 ×3; A9270 ×9; J1200; J2765; J3475 ×2; J1650 ×3; J3490; S0119

== ENCOUNTER 2018-08-03 14:31 | Emergency (ER) | payer MEDICARE, BC, OTHER ==
[2018-08-03] MEDS ORDERED: NORMAL SALINE 1000 ML 1,000 ML IV ONE (15:11)
--- NOTE | 2018-08-03 15:11 | ER Document Report ---
ED Medical Screen (RME) - General Chief Complaint: Diarrhea Stated Complaint: DIARRHEA Time Seen by Provider: 08/03/18 15:04 Notes: Patient is a 67-year-old male that presents to the emergency department for chief complaint of diarrhea. Patient states that his diarrhea started this morning, he had 8 episodes of watery diarrhea, nonbloody. He states he just ate cereal this morning and ate a sandwich. He states he has had a history of acute renal failure from dehydration, is where he is getting dehydrated, is felt somewhat lightheaded but no syncope, has had muscle aches and cramps.. ROS: Other than noted above, the 12 point review of systems was reviewed with the patient and were negative, all pertinent findings are included in the HPI. PHYSICAL EXAMINATION: Vital signs reviewed. GENERAL: Elderly male, well-developed, appears mildly ill. HEAD: Atraumatic, normocephalic. EYES: Pupils equal round extraocular movements intact, conjunctiva are normal. ENT: Nares patent NECK: Normal range of motion CV: Heart regular rate and rhythm LUNGS: No respiratory distress Musculoskeletal: Normal range of motion NEUROLOGICAL: Normal speech PSYCH: Normal mood, normal affect. MDM: Patient seen and examined for rapid initial assessment. Vital signs reviewed. A comprehensive ED assessment and evaluation of the patient, analysis of test results and completion of the medical decision making process will be conducted by additional ED providers. *Note is created using voice recognition software and may contain spelling, syntax or grammatical errors. TRAVEL OUTSIDE OF THE [place] IN LAST 30 DAYS: No - Related Data Allergies/Adverse Reactions: atorvastatin [From Lipitor] Adverse Reaction (Unknown, Verified 05/23/18 19:58) Diarrhea lovastatin [From Mevacor] Adverse Reaction (Unknown, Verified 05/23/18 19:58) Diarrhea Past Medical History - Social History Chew tobacco use (# tins/day): No Frequency of alcohol use: None Drug Abuse: None - Past Medical History Cardiac Medical History: Reports: Hx Heart Attack - 05/06/1993, Hx Hypercholesterolemia, Hx Hypertension Denies: Hx Congestive Heart Failure Pulmonary Medical History: Denies: Hx Asthma, Hx Bronchitis, Hx COPD, Hx Pneumonia, Hx Tuberculosis Neurological Medical History: Denies: Hx Seizures Endocrine Medical History: Reports: Hx Diabetes Mellitus Type 1, Hx Diabetes Mellitus Type 2 Renal/ Medical History: Denies: Hx Benign Prostatic Hyperplasia, Hx End Stage Renal Disease, Hx Kidney Stones, Hx Peritoneal Dialysis GI Medical History: Reports: Hx Gastroesophageal Reflux Disease. Denies: Hx Cirrhosis, Hx Ulcer Musculoskeltal Medical History: Reports Hx Arthritis - back, left hip, Denies Hx Multiple Sclerosis Psychiatric Medical History: Denies: Hx Bipolar Disorder, Hx Depression, Hx Schizophrenia Past Surgical History: Reports: Hx Cardiac Surgery - CABG x3, with complicated postoperative course including infection, Hx Coronary Artery Bypass Graft - 93, Hx Coronary Stent, Hx Orthopedic Surgery, Hx Tonsillectomy - Immunizations Immunizations up to date: Yes Hx Diphtheria, Pertussis, Tetanus Vaccination: Yes - 2000 History of Influenza Vaccine for 06/2017 - 10/2017 Season: Refused Physical Exam - Vital signs Vitals: Temp Pulse Resp BP Pulse Ox 97.7 F 63 13 146/56 H 99 08/03/18 14:42 08/03/18 14:42 08/03/18 14:42 08/03/18 14:42 08/03/18 14:42 Course - Vital Signs Vital signs: Temp Pulse Resp BP Pulse Ox 97.7 F 63 13 146/56 H 99 08/03/18 14:42 08/03/18 14:42 08/03/18 14:42 08/03/18 14:42 08/03/18 14:42 Doctor's Discharge - Discharge Referrals: ASHER LUDWIG MD [Primary Care Provider] - Follow up as needed
--- NOTE | 2018-08-03 16:46 | ER Document Report ---
ED GI/ - General Chief Complaint: Diarrhea Stated Complaint: DIARRHEA Time Seen by Provider: 08/03/18 15:04 Mode of Arrival: Ambulatory Information source: Patient Notes: Patient complains of diarrhea that started today. Patient states that he has had about 8 episodes. Patient denies any blood in the stool or abdominal tenderness. Patient states that he has had similar symptoms in the past and ended up having an acute kidney injury due to dehydration. Patient does report that has had diarrhea at home but that she does have IBS. Patient denies any fever. Patient reports that the diarrhea has since started to slack off. TRAVEL OUTSIDE OF THE [place] IN LAST 30 DAYS: No - HPI Patient complains to provider of: Diarrhea. No: Abdominal pain, Vomiting Onset: This morning Timing/Duration: Better Quality of pain: No pain Pain Level: Denies Associated symptoms: Diarrhea. denies: Blood in stool, Constipation, Loss of appetite, Nausea, Urinary hesitancy, Urinary frequency, Urinary retention, Urinary urgency, Vomiting Exacerbated by: Denies Relieved by: Denies Similar symptoms previously: Yes Recently seen / treated by doctor: No - Related Data Allergies/Adverse Reactions: atorvastatin [From Lipitor] Adverse Reaction (Unknown, Verified 05/23/18 19:58) Diarrhea lovastatin [From Mevacor] Adverse Reaction (Unknown, Verified 05/23/18 19:58) Diarrhea Past Medical History - General Information source: Patient - Social History Smoking Status: Never Smoker Chew tobacco use (# tins/day): No Frequency of alcohol use: None Drug Abuse: None Lives with: Spouse/Significant other Family History: CAD, Hyperlipidemia, Hypertension, Malignancy Patient has suicidal ideation: No Patient has homicidal ideation: No - Past Medical History Cardiac Medical History: Reports: Hx Heart Attack - 05/06/1993, Hx Hypercholesterolemia, Hx Hypertension Denies: Hx Congestive Heart Failure Pulmonary Medical History: Denies: Hx Asthma, Hx Bronchitis, Hx COPD, Hx Pneumonia, Hx Tuberculosis Neurological Medical History: Denies: Hx Seizures Endocrine Medical History: Reports: Hx Diabetes Mellitus Type 1, Hx Diabetes Mellitus Type 2 Renal/ Medical History: Denies: Hx Benign Prostatic Hyperplasia, Hx End Stage Renal Disease, Hx Kidney Stones, Hx Peritoneal Dialysis GI Medical History: Reports: Hx Gastroesophageal Reflux Disease. Denies: Hx Cirrhosis, Hx Ulcer Musculoskeletal Medical History: Reports Hx Arthritis - back, left hip, Denies Hx Multiple Sclerosis Psychiatric Medical History: Denies: Hx Bipolar Disorder, Hx Depression, Hx Schizophrenia Past Surgical History: Reports: Hx Cardiac Surgery - CABG x3, with complicated postoperative course including infection, Hx Coronary Artery Bypass Graft - 93, Hx Coronary Stent, Hx Orthopedic Surgery, Hx Tonsillectomy - Immunizations Immunizations up to date: Yes Hx Diphtheria, Pertussis, Tetanus Vaccination: Yes - 2000 Review of Systems - Review of Systems Constitutional: No symptoms reported. denies: Chills, Fever EENT: No symptoms reported Cardiovascular: Lightheaded Respiratory: No symptoms reported. denies: Cough, Short of breath Gastrointestinal: Diarrhea. denies: Abdominal pain, Nausea, Vomiting, Blood streaked bowels Genitourinary: No symptoms reported Male Genitourinary: No symptoms reported Musculoskeletal: No symptoms reported. denies: Back pain Skin: No symptoms reported Hematologic/Lymphatic: No symptoms reported Neurological/Psychological: No symptoms reported Physical Exam - Vital signs Vitals: Temp Pulse Resp BP Pulse Ox 97.7 F 63 13 146/56 H 99 08/03/18 14:42 08/03/18 14:42 08/03/18 14:42 08/03/18 14:42 08/03/18 14:42 - General General appearance: Appears well, Alert In distress: None - HEENT Head: Normocephalic, Atraumatic Eyes: Normal Conjunctiva: Normal Nasal: Normal Mouth/Lips: Normal Mucous membranes: Normal Neck: Normal, Supple. No: Lymphadenopathy - Respiratory Respiratory status: No respiratory distress Chest status: Nontender Breath sounds: Normal. No: Rales, Rhonchi, Stridor, Wheezing Chest palpation: Normal - Cardiovascular Rhythm: Regular. No: Tachycardia Heart sounds: S1 appreciated, S2 appreciated Murmur: No - Abdominal Inspection: Other - ventral hernia Distension: No distension Bowel sounds: Hyperactive Tenderness: Nontender Organomegaly: No organomegaly - Back Back: Normal, Nontender. No: CVA tenderness - Extremities General upper extremity: Normal inspection, Normal ROM General lower extremity: Normal inspection, Normal ROM - Neurological Neuro grossly intact: Yes Cognition: Normal Barbara Coma Scale Eye Opening: Spontaneous Normal Coma Scale Verbal: Oriented Barbara Coma Scale Motor: Obeys Commands Barbara Coma Scale Total: 15 - Psychological Associated symptoms: Normal affect, Normal mood - Skin Skin Temperature: Warm Skin Moisture: Dry Skin Color: Normal Course - Re-evaluation Re-evalutation: 08/03/18 18:19 Patient's abdomen continues soft nontender. Patient states he is only had one diarrhea stool while here. Patient states that the volume of the diarrhea has significantly decreased. Patient states that he is feeling better. Patient encouraged to stay well-hydrated at home and to follow-up with primary doctor for recheck. - Vital Signs Vital signs: Temp Pulse Resp BP Pulse Ox 98.1 F 55 L 16 128/59 H 100 08/03/18 19:15 08/03/18 19:15 08/03/18 19:15 08/03/18 19:15 08/03/18 19:15 - Laboratory Result Diagrams: 08/03/18 17:11 08/03/18 17:11 Laboratory results interpreted by me: 08/03/18 08/03/18 17:11 17:11 RBC 4.16 L Hgb 12.6 L Hct 36.3 L Glucose 131 H Labs- Entire Visit 08/03/18 08/03/18 08/03/18 16:57 17:11 17:11 WBC 8.1 RBC 4.16 L Hgb 12.6 L Hct 36.3 L MCV 87 MCH 30.3 MCHC 34.7 RDW 13.6 Plt Count 168 Seg Neutrophils % 69.1 Lymphocytes % 19.3 Monocytes % 7.6 Eosinophils % 3.5 Basophils % 0.5 Absolute Neutrophils 5.6 Absolute Lymphocytes 1.6 Absolute Monocytes 0.6 Absolute Eosinophils 0.3 Absolute Basophils 0.0 Sodium 143.6 Potassium 4.9 Chloride 105 Carbon Dioxide 26 Anion Gap 13 BUN 18 Creatinine 1.17 Est GFR ( Amer) > 60 Est GFR (Non-Af Amer) > 60 Glucose 131 H Calcium 9.5 Total Bilirubin 0.7 Direct Bilirubin 0.3 Neonat Total Bilirubin Not Reportable Neonat Direct Bilirubin Not Reportable Neonat Indirect Bili Not Reportable AST 25 ALT 27 Alkaline Phosphatase 88 Total Protein 7.4 Albumin 4.7 Lipase 129.9 Urine Color COLORLESS Urine Appearance CLEAR Urine pH 5.0 Ur Specific [place] 1.003 Urine Protein NEGATIVE Urine Glucose (UA) NEGATIVE Urine Ketones NEGATIVE Urine Blood NEGATIVE Urine Nitrite NEGATIVE Urine Bilirubin NEGATIVE Urine Urobilinogen NEGATIVE Ur Leukocyte Esterase NEGATIVE Urine WBC (Auto) 0 Urine RBC (Auto) 2 Urine Mucus (Auto) RARE Urine Ascorbic Acid NEGATIVE Discharge - Discharge Clinical Impression: Diarrhea Qualifiers: Diarrhea type: unspecified type Qualified Code(s): R19.7 - Diarrhea, unspecified Condition: Stable Disposition: HOME, SELF-CARE Instructions: Diarrhea, Nonspecific ([facility]), Intravenous (IV) Fluids ([facility]) Additional Instructions: Return immediately for any new or worsening symptoms Followup with your primary care provider, call tomorrow to make a followup appointment Referrals: ASHER LUDWIG MD [Primary Care Provider] - Follow up tomorrow
[2018-08-03 17:26] LABS: APPEARANCE,URINE CLEAR; BILIRUBIN,URINE NEGATIVE (NEGATIVE); COLOR,URINE COLORLESS; GLUCOSE, URINE NEGATIVE (NEGATIVE); KETONES,URINE NEGATIVE (NEGATIVE); LEUKOCYTE ESTERASE,URINE NEGATIVE (NEGATIVE); NITRITE,URINE NEGATIVE (NEGATIVE); PROTEIN,URINE NEGATIVE (NEGATIVE); URINE SPECIFIC GRAVITY 1.003; UROBILINOGEN,URINE NEGATIVE mg/dL (<2.0)
[2018-08-03 17:48] LABS: ABSOLUTE EOSINOPHILS # (AUTO) 0.3 10^3/uL (0.0-0.6); ABSOLUTE LYMPHOCYTES (AUTO) 1.6 10^3/uL (0.5-4.7); ABSOLUTE MONOCYTES (AUTO) 0.6 10^3/uL (0.1-1.4); ABSOLUTE NEUT (AUTO) 5.6 10^3/uL (1.7-8.2); BASOPHILS % (AUTO) 0.5 % (0-2); EOSINOPHILS % (AUTO) 3.5 % (0-6); HEMATOCRIT 36.3 % (37.9-51.0); HEMOGLOBIN 12.6 g/dL (13.5-17.0); LYMPHOCYTES % (AUTO) 19.3 % (13-45); MEAN CORPUSCULAR HEMOGLOBIN 30.3 pg (27.0-33.4); MEAN CORPUSCULAR HGB CONC 34.7 g/dL (32.0-36.0); MEAN CORPUSCULAR VOLUME 87 fl (80-97); MONOCYTES % (AUTO) 7.6 % (3-13); PLATELET COUNT 168 10^3/uL (150-450); RED BLOOD COUNT 4.16 10^6/uL (4.35-5.55); RED CELL DISTRIBUTION WIDTH 13.6 % (11.5-14.0); SEGMENTED NEUTROPHILS % (AUTO) 69.1 % (42-78); TOTAL CELLS COUNTED % (AUTO) 100 %; WHITE BLOOD COUNT 8.1 10^3/uL (4.0-10.5)
[2018-08-03 18:08] LABS: ALANINE AMINOTRANSFERASE 27 U/L (21-72); ALBUMIN 4.7 g/dL (3.5-5.0); ALKALINE PHOSPHATASE 88 U/L (38-126); ANION GAP 13 (5-19); ASPARTATE AMINO TRANSFERASE 25 U/L (17-59); BILIRUBIN,DIRECT 0.3 mg/dL (0.0-0.4); BILIRUBIN,TOTAL 0.7 mg/dL (0.2-1.3); BLOOD UREA NITROGEN 18 mg/dL (7-20); CALCIUM 9.5 mg/dL (8.4-10.2); CARBON DIOXIDE 26 mmol/L (22-30); CHLORIDE 105 mmol/L (98-107); GLUCOSE 131 mg/dL (75-110); LIPASE 129.9 U/L (23-300); POTASSIUM 4.9 mmol/L (3.6-5.0); SODIUM 143.6 mmol/L (137-145); TOTAL PROTEIN 7.4 g/dL (6.3-8.2)
[2018-08-03] MEDS ORDERED: LOPERAMIDE HCL 2 MG CAPSULE PO ONE (18:18)
[2018-08-03 19:18] VITALS: BP 128/59
== END 2018-08-03 19:18 | disposition home or self-care (01) ==
LOC: ER 14:31
DX: R19.7 Diarrhea, unspecified (principal); K43.9 Ventral hernia without obstruction or gangrene; E78.00 Pure hypercholesterolemia, unspecified; I10 Essential (primary) hypertension; I25.2 Old myocardial infarction; Z95.1 Presence of aortocoronary bypass graft
CPT/HCPCS: 99284; 96360; 96361; 36415; 83690; 85025; 80053; 81001; A9270; J7030

== ENCOUNTER 2018-09-12 04:15 | Emergency (ER) | payer MEDICARE, BC, OTHER ==
[2018-09-12] MEDS ORDERED: ASPIRIN 81 MG TABLET, CHEWABLE PO ONE (04:34)
--- NOTE | 2018-09-12 04:37 | ER Document Report ---
ED Cardiac - General Chief Complaint: Chest Pain Stated Complaint: CHEST PAIN Time Seen by Provider: 09/12/18 04:26 Notes: Patient is a 68-year-old male that comes to the emergency department for chief complaint of chest pain that started at 3 AM while he was sitting at the computer. He states it is a mild 1/5 to 2/5 discomfort along the left sternal border. Symptoms have not changed since onset. He does report some radiation to the left arm. Denies other radiations of the pain. He denies shortness of breath, nausea, vomiting. He states he has had pain in the same location in the past, states he thinks it is scar tissue. He had a large surgery for a CABG in 1992 with extensive scar, partial sternum removal, omentum sac coverage. History of [place], type 2 diabetes, hypertension. On home aspirin. Denies smoking. 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 Primary care is Dr. Villareal in [place]. TRAVEL OUTSIDE OF THE [place] IN LAST 30 DAYS: No - Related Data Allergies/Adverse Reactions: atorvastatin [From Lipitor] Adverse Reaction (Unknown, Verified 05/23/18 19:58) Diarrhea lovastatin [From Mevacor] Adverse Reaction (Unknown, Verified 05/23/18 19:58) Diarrhea Past Medical History - Social History Smoking Status: Never Smoker Family History: CAD, Hyperlipidemia, Hypertension, Malignancy Patient has suicidal ideation: No Patient has homicidal ideation: No - Past Medical History Cardiac Medical History: Reports: Hx Heart Attack - 05/06/1993, Hx Hypercholesterolemia, Hx Hypertension Denies: Hx Congestive Heart Failure Pulmonary Medical History: Denies: Hx Asthma, Hx Bronchitis, Hx COPD, Hx Pneumonia, Hx Tuberculosis Neurological Medical History: Denies: Hx Seizures Endocrine Medical History: Reports: Hx Diabetes Mellitus Type 1, Hx Diabetes Mellitus Type 2 Renal/ Medical History: Denies: Hx Benign Prostatic Hyperplasia, Hx End Stage Renal Disease, Hx Kidney Stones, Hx Peritoneal Dialysis GI Medical History: Reports: Hx Gastroesophageal Reflux Disease. Denies: Hx Cirrhosis, Hx Ulcer Musculoskeletal Medical History: Reports Hx Arthritis - back, left hip, Denies Hx Multiple Sclerosis Psychiatric Medical History: Denies: Hx Bipolar Disorder, Hx Depression, Hx Schizophrenia Past Surgical History: Reports: Hx Cardiac Surgery - CABG x3, with complicated postoperative course including infection, Hx Coronary Artery Bypass Graft - 93, Hx Coronary Stent, Hx Orthopedic Surgery, Hx Tonsillectomy - Immunizations Immunizations up to date: Yes Hx Diphtheria, Pertussis, Tetanus Vaccination: Yes - 2000 Physical Exam - Vital signs Vitals: Resp 13 09/12/18 04:22 Course - Vital Signs Vital signs: Temp Pulse Resp BP Pulse Ox 14 170/75 H 100 09/12/18 04:23 09/12/18 04:23 09/12/18 04:23 Discharge - Discharge Referrals: ASHER VILLAREAL MD [Primary Care Provider] - Follow up as needed
--- NOTE | 2018-09-12 04:45 | ER Document Report ---
ED Medical Screen (RME) - General Chief Complaint: Chest Pain Stated Complaint: CHEST PAIN Time Seen by Provider: 09/12/18 04:26 Notes: Patient is a 68-year-old male that comes to the emergency department for chief complaint of chest pain that started at 3 AM while he was sitting at the computer. He states it is a mild 1/5 to 2/5 discomfort along the left sternal border. Symptoms have not changed since onset. He does report some radiation to the left arm. Denies other radiations of the pain. He denies shortness of breath, nausea, vomiting. He states he has had pain in the same location in the past, states he thinks it is scar tissue. He had a large surgery for a CABG in 1992 with extensive scar, partial sternum removal, omentum sac coverage. History of [place], type 2 diabetes, hypertension. On home aspirin. Denies smoking. 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 Primary care is Dr. Villareal in [place]. TRAVEL OUTSIDE OF THE [place] IN LAST 30 DAYS: No - Related Data Allergies/Adverse Reactions: atorvastatin [From Lipitor] Adverse Reaction (Unknown, Verified 05/23/18 19:58) Diarrhea lovastatin [From Mevacor] Adverse Reaction (Unknown, Verified 05/23/18 19:58) Diarrhea Past Medical History - Past Medical History Cardiac Medical History: Reports: Hx Heart Attack - 05/06/1993, Hx Hyper cholesterolemia, Hx Hypertension Denies: Hx Congestive Heart Failure Pulmonary Medical History: Denies: Hx Asthma, Hx Bronchitis, Hx COPD, Hx Pneumonia, Hx Tuberculosis Neurological Medical History: Denies: Hx Seizures Endocrine Medical History: Reports: Hx Diabetes Mellitus Type 1, Hx Diabetes Mellitus Type 2 Renal/ Medical History: Denies: Hx Benign Prostatic Hyperplasia, Hx End Stage Renal Disease, Hx Kidney Stones, Hx Peritoneal Dialysis GI Medical History: Reports: Hx Gastroesophageal Reflux Disease. Denies: Hx Cirrhosis, Hx Ulcer Musculoskeltal Medical History: Reports Hx Arthritis - back, left hip, Denies Hx Multiple Sclerosis Psychiatric Medical History: Denies: Hx Bipolar Disorder, Hx Depression, Hx Schizophrenia Past Surgical History: Reports: Hx Cardiac Surgery - CABG x3, with complicated postoperative course including infection, Hx Coronary Artery Bypass Graft - 93, Hx Coronary Stent, Hx Orthopedic Surgery, Hx Tonsillectomy - Immunizations Immunizations up to date: Yes Hx Diphtheria, Pertussis, Tetanus Vaccination: Yes - 2000 History of Influenza Vaccine for 06/2017 - 10/2017 Season: Refused Physical Exam - Vital signs Vitals: Resp 13 09/12/18 04:22 - Respiratory Respiratory status: No respiratory distress, Respiratory distress Breath sounds: Normal. No: Decreased air movement - Cardiovascular Rhythm: Regular. No: Tachycardia Heart sounds: Normal auscultation, S1 appreciated, S2 appreciated Course - Re-evaluation Re-evalutation: I have greeted and performed a rapid initial assessment of this patient. A comprehensive ED assessment and evaluation of the patient, analysis of test results and completion of the medical decision making process will be conducted by additional ED providers. - Vital Signs Vital signs: Temp Pulse Resp BP Pulse Ox 14 170/75 H 100 09/12/18 04:23 09/12/18 04:23 09/12/18 04:23 - Laboratory Result Diagrams: 09/12/18 04:38 Doctor's Discharge - Discharge Referrals: ASHER VILLAREAL MD [Primary Care Provider] - Follow up as needed
[2018-09-12 05:14] LABS: ANION GAP 7 (5-19); BLOOD UREA NITROGEN 19 mg/dL (7-20); CALCIUM 9.5 mg/dL (8.4-10.2); CARBON DIOXIDE 29 mmol/L (22-30); CHLORIDE 105 mmol/L (98-107); GLUCOSE 120 mg/dL (75-110); POTASSIUM 4.7 mmol/L (3.6-5.0); SODIUM 141.1 mmol/L (137-145)
--- NOTE | 2018-09-12 05:37 | RADIOLOGY REPORT (SQ) ---
EXAM DESCRIPTION: XR CHEST 1 VIEW COMPLETED DATE/TME: 09/12/2018 04:33 CLINICAL HISTORY: 68 years, Male, chest pain COMPARISON: 04/22/2018 chest NUMBER OF VIEWS: 1 TECHNIQUE: Portable chest LIMITATIONS: None. FINDINGS: Heart size is normal. Stable postsurgical change. Osteopenia. Lungs are clear. No pneumothorax IMPRESSION: No acute cardiopulmonary process copyright 2010 [employer]- All Rights Reserved
--- NOTE | 2018-09-12 06:59 | ER Document Report ---
ED Cardiac - General Chief Complaint: Chest Pain Stated Complaint: CHEST PAIN Time Seen by Provider: 09/12/18 04:26 Notes: 68-year-old male that comes to the emergency department for chief complaint of chest pain that started at 3 AM while he was sitting at the computer. He states it is a mild 1/5 to 2/5 discomfort along the left sternal border. Symptoms have not changed since onset. He does report some radiation to the left arm. Denies other radiations of the pain. He denies shortness of breath, nausea, vomiting. He states he has had pain in the same location in the past, states he thinks it is scar tissue. He had a large surgery for a CABG in 1992 with extensive scar, partial sternum removal, omentum sac coverage. History of [place], type 2 diabetes, hypertension. On home aspirin. Denies smoking. 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 Primary care is Dr. Villareal in [place]. TRAVEL OUTSIDE OF THE [place] IN LAST 30 DAYS: No - Related Data Allergies/Adverse Reactions: atorvastatin [From Lipitor] Adverse Reaction (Unknown, Verified 05/23/18 19:58) Diarrhea lovastatin [From Mevacor] Adverse Reaction (Unknown, Verified 05/23/18 19:58) Diarrhea Past Medical History - Social History Smoking Status: Never Smoker Family History: CAD, Hyperlipidemia, Hypertension, Malignancy Patient has suicidal ideation: No Patient has homicidal ideation: No - Past Medical History Cardiac Medical History: Reports: Hx Heart Attack - 05/06/1993, Hx Hypercholesterolemia, Hx Hypertension Denies: Hx Congestive Heart Failure Pulmonary Medical History: Denies: Hx Asthma, Hx Bronchitis, Hx COPD, Hx Pneumonia, Hx Tuberculosis Neurological Medical History: Denies: Hx Seizures Endocrine Medical History: Reports: Hx Diabetes Mellitus Type 1, Hx Diabetes Mellitus Type 2 Renal/ Medical History: Denies: Hx Benign Prostatic Hyperplasia, Hx End Stage Renal Disease, Hx Kidney Stones, Hx Peritoneal Dialysis GI Medical History: Reports: Hx Gastroesophageal Reflux Disease. Denies: Hx Cirrhosis, Hx Ulcer Musculoskeletal Medical History: Reports Hx Arthritis - back, left hip, Denies Hx Multiple Sclerosis Psychiatric Medical History: Denies: Hx Bipolar Disorder, Hx Depression, Hx Schizophrenia Past Surgical History: Reports: Hx Cardiac Surgery - CABG x3, with complicated postoperative course including infection, Hx Coronary Artery Bypass Graft - 93, Hx Coronary Stent, Hx Orthopedic Surgery, Hx Tonsillectomy - Immunizations Immunizations up to date: Yes Hx Diphtheria, Pertussis, Tetanus Vaccination: Yes - 2000 Review of Systems - Review of Systems -: Yes All other systems reviewed and negative Physical Exam - Vital signs Vitals: Resp 13 09/12/18 04:22 - Notes Notes: GENERAL_APPEARANCE: well_nourished, alert, cooperative VITALS: reviewed, see vital signs table. HEAD: no_swelling\tenderness on the head. EYES: PERRL, EOMI, conjunctiva_clear. NOSE: no_nasal_discharge. MOUTH: (-)decreased moisture. THROAT: no_throat_inflammation, no_airway_obstruction. no_lymphadenopathy NECK: supple, no_neck_tenderness, (-)thyromegaly. BACK: no_back_tenderness. CHEST_WALL: Left parasternal tenderness there is considerable post surgical deformity of the sternum with omental flap and scarring. LUNGS: no_wheezing, no_rales, no_rhonchi, (-)accessory muscle use, good air exchange bilateral. HEART: normal_rate, normal_rhythm, normal_S1, normal_S2, (-)S3, (-)S4, no_murmur, no_rub. ABDOMEN: normal_BS, soft, no_abd_tenderness, (-)guarding, (-)rebound, no_organomegaly, no_abd_masses. EXTREMITIES: good pulses in all_extremities, no_swelling\tenderness in the extremities, 1+_edema. SKIN: warm, dry, good_color, no_rash. MENTAL_STATUS: speech_clear, oriented_X_3, normal_affect, responds_appropriately to questions. Course - Vital Signs Vital signs: Temp Pulse Resp BP Pulse Ox 97.6 F 18 132/64 H 100 09/12/18 04:40 09/12/18 07:00 09/12/18 06:46 09/12/18 07:00 - Laboratory Result Diagrams: 09/12/18 07:57 09/12/18 04:38 Laboratory results interpreted by me: 09/12/18 09/12/18 04:38 07:57 RBC 3.85 L Hgb 11.5 L Hct 33.4 L Plt Count 142 L Creatinine 1.36 H Est GFR (Non-Af Amer) 52 L Glucose 120 H - Diagnostic Test Radiology reviewed: Image reviewed Radiology results interpreted by me: 09/12/18 09:11 Chest X-Ray 09/12/18 04:33 IMPRESSION: No acute cardiopulmonary process copyright 2011 [employer]- All Rights Reserved - EKG Interpretation by [place] EKG shows normal: Sinus rhythm Rate: Normal - 57 Rhythm: NSR Additional EKG results interpreted by me: 09/12/18 06:58 Normal sinus rhythm at 57 with occasional PVCs no acute ST abnormalities noted Discharge - Discharge Clinical Impression: Chest wall pain Condition: Good Disposition: HOME, SELF-CARE Instructions: Chest Wall Pain ([facility]) Prescriptions: Diclofenac Sodium [Voltaren] 75 mg PO BID PRN #20 tablet. PRN Reason: Pain Scale Of 5 Referrals: ASHER VILLAREAL MD [Primary Care Provider] - Follow up as needed
[2018-09-12 08:07] LABS: ABSOLUTE EOSINOPHILS # (AUTO) 0.3 10^3/uL (0.0-0.6); ABSOLUTE LYMPHOCYTES (AUTO) 1.7 10^3/uL (0.5-4.7); ABSOLUTE MONOCYTES (AUTO) 0.6 10^3/uL (0.1-1.4); ABSOLUTE NEUT (AUTO) 3.6 10^3/uL (1.7-8.2); BASOPHILS % (AUTO) 0.6 % (0-2); EOSINOPHILS % (AUTO) 4.4 % (0-6); HEMATOCRIT 33.4 % (37.9-51.0); HEMOGLOBIN 11.5 g/dL (13.5-17.0); LYMPHOCYTES % (AUTO) 26.9 % (13-45); MEAN CORPUSCULAR HEMOGLOBIN 29.8 pg (27.0-33.4); MEAN CORPUSCULAR HGB CONC 34.3 g/dL (32.0-36.0); MEAN CORPUSCULAR VOLUME 87 fl (80-97); MONOCYTES % (AUTO) 9.5 % (3-13); PLATELET COUNT 142 10^3/uL (150-450); RED BLOOD COUNT 3.85 10^6/uL (4.35-5.55); RED CELL DISTRIBUTION WIDTH 12.9 % (11.5-14.0); SEGMENTED NEUTROPHILS % (AUTO) 58.6 % (42-78); TOTAL CELLS COUNTED % (AUTO) 100 %; WHITE BLOOD COUNT 6.1 10^3/uL (4.0-10.5)
[2018-09-12 09:36] VITALS: BP 141/76
--- NOTE | 2018-09-14 16:44 | EKG REPORT ---
SEVERITY:- ABNORMAL ECG - SINUS RHYTHM VENTRICULAR PREMATURE COMPLEX LOW VOLTAGE IN FRONTAL LEADS CONSIDER RVH OR POSTERIOR INFARCT NONSPECIFIC T ABNORMALITIES, LATERAL LEADS, MIN. CHANGE FROM 04/22/18 EKG : Confirmed by: Alex Allred MD 14-Sep-2018 16:44:04
== END 2018-09-12 09:37 | disposition home or self-care (01) ==
LOC: ER 04:15
DX: R07.89 Other chest pain (principal); L90.5 Scar conditions and fibrosis of skin; I49.3 Ventricular premature depolarization; I10 Essential (primary) hypertension; I25.2 Old myocardial infarction; E11.9 Type 2 diabetes mellitus without complications; M95.4 Acquired deformity of chest and rib; Z90.89 Acquired absence of other organs; Z95.5 Presence of coronary angioplasty implant and graft; Z95.1 Presence of aortocoronary bypass graft
CPT/HCPCS: 93005; 99285; 36415; 85025; 80048; 84484; 71045; 93010; A9270

== ENCOUNTER 2019-03-21 22:03 | Emergency (ER) | payer MEDICARE, BC, OTHER ==
[2019-03-21] MEDS ORDERED: ONDANSETRON 4 MG TAB.RAPDIS PO ONE (23:20)
[2019-03-21] MEDS ORDERED: PRAMIPEXOLE DI-HCL 0.5 MG TABLET PO ONE (23:20)
--- NOTE | 2019-03-21 23:49 | ER Document Report ---
ED General - General Chief Complaint: Medication Refill Stated Complaint: MEDICATION REFILL Time Seen by Provider: 03/21/19 23:16 Primary Care Provider: ASHER LUDWIG MD [Primary Care Provider] - Follow up as needed TRAVEL OUTSIDE OF THE [place] IN LAST 30 DAYS: No - HPI Notes: Patient presents emergency department for evaluation. He states he ran out of his Mirapex the day before yesterday. He has been on this medication for several years for his restless leg syndrome. He states he is feeling jittery and shaking from his legs on up. He also feels nauseated. He states that the prior authorization for his Mirapex prescription did not go through in a timely fashion. That is why he is run out of it. The patient follows with his primary care physician regularly. He denies any other symptoms at this time. Otherwise he is taking all of his medications as prescribed. - Related Data Allergies/Adverse Reactions: atorvastatin [From Lipitor] Adverse Reaction (Unknown, Verified 05/23/18 19:58) Diarrhea lovastatin [From Mevacor] Adverse Reaction (Unknown, Verified 05/23/18 19:58) Diarrhea Past Medical History - General Information source: Patient - Social History Smoking Status: Former Smoker Drug Abuse: None Family History: CAD, Hyperlipidemia, Hypertension, Malignancy Patient has suicidal ideation: No Patient has homicidal ideation: No - Past Medical History Cardiac Medical History: Reports: Hx Coronary Artery Disease, Hx Heart Attack - 05/06/1993, Hx Hypercholesterolemia, Hx Hypertension Denies: Hx Congestive Heart Failure Pulmonary Medical History: Denies: Hx Asthma, Hx Bronchitis, Hx COPD, Hx Pneumonia, Hx Tuberculosis Neurological Medical History: Denies: Hx Seizures Endocrine Medical History: Reports: Hx Diabetes Mellitus Type 1, Hx Diabetes Mellitus Type 2 Renal/ Medical History: Denies: Hx Benign Prostatic Hyperplasia, Hx End Stage Renal Disease, Hx Kidney Stones, Hx Peritoneal Dialysis GI Medical History: Reports: Hx Gastroesophageal Reflux Disease. Denies: Hx Cirrhosis, Hx Ulcer Musculoskeletal Medical History: Reports Hx Arthritis - back, left hip, Denies Hx Multiple Sclerosis Psychiatric Medical History: Denies: Hx Bipolar Disorder, Hx Depression, Hx Schizophrenia Past Surgical History: Reports: Hx Cardiac Surgery - CABG x3, with complicated postoperative course including infection, Hx Coronary Artery Bypass Graft - 93, Hx Coronary Stent, Hx Orthopedic Surgery, Hx Tonsillectomy - Immunizations Immunizations up to date: Yes Hx Diphtheria, Pertussis, Tetanus Vaccination: Yes - 2000 Review of Systems - Review of Systems Constitutional: No symptoms reported EENT: No symptoms reported Cardiovascular: No symptoms reported Respiratory: No symptoms reported Gastrointestinal: See HPI Genitourinary: No symptoms reported Musculoskeletal: No symptoms reported Skin: No symptoms reported Neurological/Psychological: See HPI Physical Exam - Vital signs Vitals: Temp Pulse Resp BP Pulse Ox 97.4 F 55 L 20 122/51 L 97 03/21/19 22:20 03/21/19 22:20 03/21/19 22:20 03/21/19 22:20 03/21/19 22:20 - Notes Notes: Vital signs reviewed, please refer to chart. Head is normocephalic, atraumatic. Pupils equal round, reactive to light. Neck is supple without meningismus. Heart is regular rate and rhythm. Lungs are clear to auscultation bilaterally. Abdomen is soft, nontender, normoactive bowel sounds throughout. Extremities without cyanosis, clubbing. Posterior calves are nontender. Peripheral pulses are equal. Skin is warm and dry. Patient is awake, alert, neurological exam is nonfocal. Course - Re-evaluation Re-evalutation: 03/21/19 23:49 Presents emergency department for evaluation. He has been out of his Mirapex. He is experiencing symptoms that are consistent with Mirapex withdrawal. He was given his first dose of Mirapex here as well as some Zofran. I will send him home with a 3-day prescription to bridge the gap until he is able to get his prescription through primary care. He is to return to ED with worsening or new concerning symptoms of any sort. - Vital Signs Vital signs: Temp Pulse Resp BP Pulse Ox 97.4 F 55 L 20 122/51 L 97 03/21/19 22:20 03/21/19 22:20 03/21/19 22:20 03/21/19 22:20 03/21/19 22:20 Discharge - Discharge Clinical Impression: mirapex withdrawal Condition: Stable Disposition: HOME, SELF-CARE Instructions: Nausea or Vomiting, Nonspecific ([facility]) Additional Instructions: Take medication as prescribed. Follow-up with your primary care physician this week. Return to the emergency department with worsening or new concerning symptoms. Referrals: ASHER LUDWIG MD [Primary Care Provider] - Follow up as needed
[2019-03-22] MEDS ORDERED: PRAMIPEXOLE DI-HCL 0.5 MG TABLET ONE (00:17)
[2019-03-22 00:34] VITALS: BP 135/55
== END 2019-03-22 00:34 | disposition home or self-care (01) ==
LOC: ER 22:03
DX: Z76.0 Encounter for issue of repeat prescription (principal); R11.0 Nausea; Z79.899 Other long term (current) drug therapy; Z87.891 Personal history of nicotine dependence; I25.10 Atherosclerotic heart disease of native coronary artery without angina pectoris; I25.2 Old myocardial infarction; I11.0 Hypertensive heart disease with heart failure; E11.9 Type 2 diabetes mellitus without complications
CPT/HCPCS: 99281; A9270 ×2; J3490; S0119

== ENCOUNTER 2019-04-05 07:30 | Observation (INO) | payer MEDICARE, BC, OTHER ==
[2019-04-05] MEDS ORDERED: ASPIRIN 81 MG TABLET, CHEWABLE PO ONE (07:32)
--- NOTE | 2019-04-05 08:25 | ER Document Report ---
ED General - General Chief Complaint: Chest Pain Stated Complaint: CHEST PAIN Time Seen by Provider: 04/05/19 08:23 Primary Care Provider: ASHER VILLAREAL MD [Primary Care Provider] - Follow up as needed TRAVEL OUTSIDE OF THE [place] IN LAST 30 DAYS: No - HPI Notes: 68-year-old male to the emergency with complaints of chest pain that began this morning. He states that he had 4 episodes of sharp stabbing chest pain in his midsternal chest with associated diaphoresis this morning. He states that his not made worse with exertion. He has not had nausea and vomiting with it. He h as not had radiation to his arms neck or jaw. He does admit to some slight shortness of breath. He has a significant past medical history of CABG x3, diabetes, hypertension. He is a former smoker. 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 He sees Dr. Villareal in [place] for his primary care. He states that he had his CABG in 1992. He has not had to have any stenting since. He states that he gets stressed about every 2 years and it has been normal. He states that he currently has no chest pain. He states that he does not have nitroglycerin at home and does not typically use it. He denies any fevers, chills, headache, dizziness, passing out, abdominal pain, vomiting, diarrhea, urinary complaints. Patient also reports bilateral leg swelling that has been ongoing for the past 2 years. He states that he used to be on a diuretic pill but it made him going to acute renal failure. He has not tried a diuretic since then. He states that today his leg swelling is actually better than it is normally. Denies any recent travel. Denies history of DVT. 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 He states that the chest pain this morning is different than his normal postsurgical pain. He takes aspirin daily but is on no other blood thinners. - Related Data Allergies/Adverse Reactions: atorvastatin [From Lipitor] Adverse Reaction (Unknown, Verified 04/05/19 07:31) Diarrhea lovastatin [From Mevacor] Adverse Reaction (Unknown, Verified 04/05/19 07:31) Diarrhea Past Medical History - General Information source: Patient - Social History Smoking Status: Former Smoker Frequency of alcohol use: None Drug Abuse: None Family History: CAD, Hyperlipidemia, Hypertension, Malignancy - Past Medical History Cardiac Medical History: Reports: Hx Coronary Artery Disease, Hx Heart Attack - 05/06/1993, Hx Hypercholesterolemia, Hx Hypertension Denies: Hx Congestive Heart Failure Pulmonary Medical History: Denies: Hx Asthma, Hx Bronchitis, Hx COPD, Hx Pneumonia, Hx Tuberculosis Neurological Medical History: Denies: Hx Seizures Endocrine Medical History: Reports: Hx Diabetes Mellitus Type 1, Hx Diabetes Mellitus Type 2 Renal/ Medical History: Denies: Hx Benign Prostatic Hyperplasia, Hx End Stage Renal Disease, Hx Kidney Stones, Hx Peritoneal Dialysis GI Medical History: Reports: Hx Gastroesophageal Reflux Disease. Denies: Hx Cirrhosis, Hx Ulcer Musculoskeletal Medical History: Reports Hx Arthritis - back, left hip, Denies Hx Multiple Sclerosis Psychiatric Medical History: Denies: Hx Bipolar Disorder, Hx Depression, Hx Schizophrenia Past Surgical History: Reports: Hx Cardiac Surgery - CABG x3, with complicated postoperative course including infection, Hx Coronary Artery Bypass Graft - 93, Hx Coronary Stent, Hx Orthopedic Surgery, Hx Tonsillectomy - Immunizations Immunizations up to date: Yes Hx Diphtheria, Pertussis, Tetanus Vaccination: Yes - 2000 Review of Systems - Review of Systems Constitutional: Diaphoresis. denies: Chills, Fever EENT: No symptoms reported Cardiovascular: Chest pain, Edema. denies: Palpitations, Dyspnea, Syncope, Dizziness, Lightheaded Respiratory: Short of breath. denies: Cough, Hurts to breathe Gastrointestinal: Abdominal pain, Diarrhea, Nausea, Vomiting Genitourinary: No symptoms reported Musculoskeletal: No symptoms reported Hematologic/Lymphatic: No symptoms reported Neurological/Psychological: No symptoms reported -: Yes All other systems reviewed and negative Physical Exam - Vital signs Vitals: Temp Pulse Resp BP Pulse Ox 97.6 F 52 L 18 156/59 H 97 04/05/19 07:41 04/05/19 07:41 04/05/19 07:41 04/05/19 07:41 04/05/19 07:41 Interpretation: Bradycardic - General General appearance: Appears well, Alert - HEENT Head: Normocephalic, Atraumatic Eyes: Normal Pupils: PERRL - Respiratory Respiratory status: No respiratory distress Chest status: Tender - There is mild tenderness chest wall. Patient states that that is his usual pain was a scar tissue but his chest pain this morning is different Breath sounds: Normal Chest palpation: Other - There is scar tissue noted to the anterior chest wall - Cardiovascular Rhythm: Regular Heart sounds: Normal auscultation Murmur: No Gallop: None auscultated Notes: Bilateral 2+ pitting edema - Abdominal Inspection: Normal Distension: No distension Bowel sounds: Normal Tenderness: Nontender Organomegaly: No organomegaly - Back Back: Normal, Nontender - Neurological Neuro grossly intact: Yes Cognition: Normal Orientation: AAOx4 Hondo Coma Scale Eye Opening: Spontaneous Barbara Coma Scale Verbal: Oriented Hondo Coma Scale Motor: Obeys Commands Barbara Coma Scale Total: 15 Speech: Normal Motor strength normal: LUE, RUE, LLE, RLE Sensory: Normal - Psychological Associated symptoms: Normal affect, Normal mood - Skin Skin Temperature: Warm Skin Moisture: Dry Skin Color: Normal Course - Re-evaluation Re-evalutation: 04/05/[address] Brown. We reviewed patient's story as well as his risk factors. We discussed his hyperkalemia and will go ahead and treated. We discussed first negative troponin and plan if second negative to admit to the hospital for further chest pain evaluation. She is aware that his heart score is 6. Patient has done well with insulin, calcium gluconate, and D50 amp to address his hyperkalemia. Repeat K is 4.7. His repeat troponin is also negative. Will admit patient to the hospitalist team here for further management trending of troponins and stress testing. With Dr. Alexander, hospitalist. He agrees with the plan for admission for the patient. He is aware of risk factors, heart score of 6, 2 negative trending troponins. He is also aware of the hyperkalemia and treatment that was given to decrease it and that repeat is 4.7. He accepts patient onto his service and states he will come and see him shortly. He states he would like him to be placed in a telemetry bed. Impression: Chest pain. Patient has a heart score of 6. Also he had hyperkalemia of 5.9 which is improved since medication. He has had 2 troponins that were both negative. He will be admitted to the hospitalist team and they will further manage his care. - Vital Signs Vital signs: Temp Pulse Resp BP Pulse Ox 98.2 F 52 L 15 121/53 L 99 04/05/19 11:32 04/05/19 07:41 04/05/19 14:00 04/05/19 14:02 04/05/19 14:00 - Laboratory Result Diagrams: 04/05/19 10:00 04/05/19 14:10 Laboratory results interpreted by me: 04/05/19 04/05/19 04/05/19 10:00 10:00 13:11 Hgb 12.9 L RDW 14.4 H Potassium 5.9 H Chloride 109 H BUN 26 H Glucose 117 H POC Glucose 165 H - Diagnostic Test Radiology reviewed: Image reviewed, Reports reviewed - EKG Interpretation by Me EKG shows normal: Sinus rhythm Rate: Normal Rhythm: NSR Additional EKG results interpreted by me: 04/05/19 10:13 No STEMI, noted T wave abnormality in lead I and in V6. Noted low voltage. This is not new from a comparison EKG on September 12, 2018 Discharge - Discharge Clinical Impression: Hyperkalemia Condition: Stable Disposition: ADMITTED INPATIENT Admitting Provider: Catherine (Hospitalist) Unit Admitted: Telemetry Referrals: ASHER VILLAREAL MD [Primary Care Provider] - Follow up as needed
--- NOTE | 2019-04-05 09:27 | EKG REPORT ---
SEVERITY:- ABNORMAL ECG - SINUS RHYTHM LOW VOLTAGE IN FRONTAL LEADS TALL R WAVE IN V2, CONSIDER RVH OR PMI NONSPECIFIC T ABNORMALITIES, LATERAL LEADS : Confirmed by: Vera Ortiz MD 05-Apr-2019 09:27:08
--- NOTE | 2019-04-05 09:37 | RADIOLOGY REPORT (SQ) ---
EXAM DESCRIPTION: CHEST 2 VIEWS COMPLETED DATE/TIME: 04/05/2019 9:20 am REASON FOR STUDY: chest pain COMPARISON: 09/12/2018. EXAM PARAMETERS: NUMBER OF VIEWS: two views TECHNIQUE: Digital Frontal and Lateral radiographic views of the chest acquired. RADIATION DOSE: NA LIMITATIONS: none FINDINGS: LUNGS AND PLEURA: Mild atelectasis versus scarring in the lung bases. No focal infiltrate s, masses or pneumothorax. No pleural effusion. MEDIASTINUM AND HILAR STRUCTURES: No masses or contour abnormalities. HEART AND VASCULAR STRUCTURES: Heart normal size. No evidence for failure. BONES: No acute findings. HARDWARE: Surgical clips. Hardware in the cervical spine. OTHER: No other significant finding. IMPRESSION: NO ACUTE RADIOGRAPHIC FINDING IN THE CHEST. TECHNICAL DOCUMENTATION: JOB ID: [id number] [employer]- All Rights Reserved Reading location - IP/workstation name: [email or web address]
[2019-04-05 10:15] LABS: ABSOLUTE BASOPHILS # (AUTO) 0.1 10^3/uL (0.0-0.2); ABSOLUTE EOSINOPHILS # (AUTO) 0.2 10^3/uL (0.0-0.6); ABSOLUTE LYMPHOCYTES (AUTO) 1.4 10^3/uL (0.5-4.7); ABSOLUTE MONOCYTES (AUTO) 0.5 10^3/uL (0.1-1.4); ABSOLUTE NEUT (AUTO) 4.6 10^3/uL (1.7-8.2); BASOPHILS % (AUTO) 0.8 % (0-2); EOSINOPHILS % (AUTO) 3.1 % (0-6); HEMOGLOBIN 12.9 g/dL (13.5-17.0); LYMPHOCYTES % (AUTO) 20.8 % (13-45); MEAN CORPUSCULAR HEMOGLOBIN 28.2 pg (27.0-33.4); MEAN CORPUSCULAR HGB CONC 33.9 g/dL (32.0-36.0); MEAN CORPUSCULAR VOLUME 83 fl (80-97); MONOCYTES % (AUTO) 7.9 % (3-13); PLATELET COUNT 159 10^3/uL (150-450); RED BLOOD COUNT 4.58 10^6/uL (4.35-5.55); RED CELL DISTRIBUTION WIDTH 14.4 % (11.5-14.0); SEGMENTED NEUTROPHILS % (AUTO) 67.4 % (42-78); TOTAL CELLS COUNTED % (AUTO) 100 %; WHITE BLOOD COUNT 6.9 10^3/uL (4.0-10.5)
[2019-04-05 10:50] LABS: ALBUMIN 4.5 g/dL (3.5-5.0); ALKALINE PHOSPHATASE 91 U/L (38-126); ANION GAP 7 (5-19); ASPARTATE AMINO TRANSFERASE 27 U/L (17-59); BILIRUBIN,DIRECT 0.4 mg/dL (0.0-0.4); BILIRUBIN,TOTAL 0.7 mg/dL (0.2-1.3); BLOOD UREA NITROGEN 26 mg/dL (7-20); CALCIUM 9.6 mg/dL (8.4-10.2); CARBON DIOXIDE 25 mmol/L (22-30); CHLORIDE 109 mmol/L (98-107); CREATINE KINASE 96 U/L (55-170); GLUCOSE 117 mg/dL (75-110); POTASSIUM 5.9 mmol/L (3.6-5.0); TOTAL PROTEIN 7.1 g/dL (6.3-8.2)
[2019-04-05 10:59] LABS: CREATINE KINASE MB 1.26 ng/mL (<4.55)
[2019-04-05 11:01] LABS: TROPONIN I < 0.012 ng/mL
[2019-04-05 11:32] LABS: PROTHROMBIN TIME 13.2 SEC (11.4-15.4)
[2019-04-05] MEDS ORDERED: DEXTROSE 50%-WATER 25 GM/50 ML DISP.SYRIN IV ONE (11:53)
[2019-04-05] MEDS ORDERED: CALCIUM GLUCONATE 1000 MG/10 ML INJ IV ONE (11:53)
[2019-04-05] MEDS ORDERED: INSULIN REG, HUMAN 100 UNIT/ML 3 ML VIAL (PYX) IV ONE (11:53)
[2019-04-05] MEDS ORDERED: DEXTROSE 50%-WATER 25 GM/50 ML DISP.SYRIN IV PRN ×2 (15:28)
[2019-04-05] MEDS ORDERED: DEXTROSE 40% GEL 15 GM TUBE PO PRN ×2 (15:28)
[2019-04-05] MEDS ORDERED: NITROGLYCERIN 0.4 MG/TAB 25 TAB/BOTTLE SL PRN (15:28)
[2019-04-05] MEDS ORDERED: GLUCAGON,HUMAN RECOMB 1 MG INJ IM PRN (15:28)
[2019-04-05] MEDS ORDERED: HYDRALAZINE HCL INJ/PF 20 MG/1 ML SDV IV PRN (15:41)
--- NOTE | 2019-04-05 15:41 | PDOC H&P ---
History of Present Illness Admission Date/PCP: 04/05/19 15:26 ASHER LUDWIG MD Patient complains of: Chest pain History of Present Illness: MARKO SANDHU is a 68 year old male with a past medical history of hypertension, diabetes mellitus type 2, CAD with prior CABG who is presenting with chest pain. Patient says that he was working on his computer around 7 AM earlier today and he started having 4 episodes of consecutive jabbing, midsternal chest pain. This only lasted for 30 seconds. He says that this was associated with diaphoresis and he was sweating a lot and soaked his clothes. Pain was nonradiating. He denies any shortness of breath, palpitations or dizziness. Denies cough, fever or chills. He says his last stress test was more than a year ago. 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 Past Medical History Cardiac Medical History: Reports: Coronary Artery Disease, Myocardial Infarction - 05/06/1993, Hyperlipidema, Hypertension Denies: Congestive Heart Failure Pulmonary Medical History: Denies: Asthma, Bronchitis, Chronic Obstructive Pulmonary Disease (COPD), Pneumonia, Tuberculosis Neurological Medical History: Denies: Seizures Endocrine Medical History: Reports: Diabetes Mellitus Type 1, Diabetes Mellitus Type 2 Renal/ Medical History: Denies: End Stage Renal Disease GI Medical History: Reports: Gastroesophageal Reflux Disease Denies: Cirrhosis Musculoskeltal Medical History: Reports: Arthritis - back, left hip Psychiatric Medical History: Denies: Bipolar Disorder, Depression Hematology: Denies: Anemia, Bleeding Tendencies Past Surgical History Past Surgical History: Reports: Coronary Artery Bypass Graft - 93, Coronary Stent, Orthopedic Surgery, Tonsillectomy Social History Smoking Status: Former Smoker Frequency of Alcohol Use: None Hx Recreational Drug Use: No Drugs: None Hx Prescription Drug Abuse: Yes Family History Family History: CAD, Hyperlipidemia, Hypertension, Malignancy Parental Family History Reviewed: Yes - No premature CAD Children Family History Reviewed: No Sibling(s) Family History Reviewed.: No Medication/Allergy Home Medications: Lisinopril [Prinivil 10 mg Tablet] 10 mg PO DAILY 05/23/18 Metformin HCl [Glucophage XR 500 mg Tablet] 1,000 mg PO BIDBS 05/23/18 Niacin [Niaspan] 1,000 mg PO QHS 05/23/18 Pregabalin [Lyrica] 300 mg PO Q12 05/23/18 Dexlansoprazole [Dexilant 60 mg Capsule] 60 mg PO DAILY 08/03/18 Pramipexole Di-HCl [Mirapex 0.5 mg Tablet] 0.5 mg PO QHS #3 tablet 03/21/19 Ezetimibe/Simvastatin [Ezetimibe-Simvastatin 10-80 mg] 1 tab PO QHS 04/05/19 Allergies/Adverse Reactions: atorvastatin [From Lipitor] Adverse Reaction (Unknown, Verified 04/05/19 07:31) Diarrhea lovastatin [From Mevacor] Adverse Reaction (Unknown, Verified 04/05/19 07:31) Diarrhea Review of Systems All systems: reviewed and no additional remarkable complaints except as stated - As mentioned in HPI Physical Exam Vital Signs: Temp Pulse Resp BP Pulse Ox 98.2 F 52 L 15 121/53 L 99 04/05/19 11:32 04/05/19 07:41 04/05/19 14:00 04/05/19 14:02 04/05/19 14:00 Intake & Output 04/04/19 04/05/19 04/06/19 06:59 06:59 06:59 Weight 215 lb 9.793 oz General appearance: PRESENT: no acute distress, well-developed, well-nourished Head exam: PRESENT: atraumatic, normocephalic Eye exam: PRESENT: conjunctiva pink, EOMI, PERRLA. ABSENT: scleral icterus Ear exam: PRESENT: normal external ear exam Mouth exam: PRESENT: moist, tongue midline Neck exam: ABSENT: carotid bruit, JVD, lymphadenopathy, thyromegaly Respiratory exam: PRESENT: clear to auscultation anamika. ABSENT: rales, rhonchi, wheezes Cardiovascular exam: PRESENT: RRR. ABSENT: diastolic murmur, rubs, systolic murmur Pulses: PRESENT: normal dorsalis pedis pul GI/Abdominal exam: PRESENT: normal bowel sounds, soft. ABSENT: distended, guarding, mass, organolmegaly, rebound, tenderness Rectal exam: PRESENT: deferred Extremities exam: PRESENT: full ROM. ABSENT: calf tenderness, clubbing, pedal edema Neurological exam: PRESENT: alert, awake, oriented to person, oriented to place, oriented to time, oriented to situation, CN II-XII grossly intact. ABSENT: motor sensory deficit Skin exam: PRESENT: other - Thoracostomy scar noted Results Laboratory Results: 04/05/19 10:00 04/05/19 14:10 04/05/19 04/05/19 04/05/19 10:00 10:00 14:10 WBC 6.9 RBC 4.58 Hgb 12.9 L Hct 38.0 MCV 83 MCH 28.2 MCHC 33.9 RDW 14.4 H Plt Count 159 Seg Neutrophils % 67.4 Lymphocytes % 20.8 Monocytes % 7.9 Eosinophils % 3.1 Basophils % 0.8 Absolute Neutrophils 4.6 Absolute Lymphocytes 1.4 Absolute Monocytes 0.5 Absolute Eosinophils 0.2 Absolute Basophils 0.1 Sodium 141.3 Potassium 5.9 H 4.7 D Chloride 109 H Carbon Dioxide 25 Anion Gap 7 BUN 26 H Creatinine 1.17 Est GFR ( Amer) > 60 Est GFR (Non-Af Amer) > 60 Glucose 117 H Calcium 9.6 Total Bilirubin 0.7 AST 27 Alkaline Phosphatase 91 Total Protein 7.1 Albumin 4.5 04/05/19 04/05/19 04/05/19 10:00 10:00 14:10 Creatine Kinase 96 CK-MB (CK-2) 1.26 Troponin I < 0.012 < 0.012 Impressions: Chest X-Ray 04/05/19 09:00 IMPRESSION: NO ACUTE RADIOGRAPHIC FINDING IN THE CHEST. Assessment and Plan - Diagnosis (1) Atypical chest pain Is this a current diagnosis for this admission?: Yes Plan: Troponins have been negative so far. EKG does not show any acute changes. We will continue to cycle EKG. We will schedule patient for stress testing. We will continue aspirin. He does have significant intolerance to multiple statins in the past. (2) Hyperkalemia Is this a current diagnosis for this admission?: Yes Plan: Likely related to lisinopril intake. He was given an insulin glucose cocktail in the ER. Potassium has normalized. (3) CAD (coronary artery disease) Qualifiers: Coronary Disease-Associated Artery/Lesion type: bypass graft Is this a current diagnosis for this admission?: Yes Plan: Resume home meds. For stress testing tomorrow. (4) Diabetes Qualifiers: Diabetes mellitus type: type 2 Diabetes mellitus complication status: without complication Is this a current diagnosis for this admission?: Yes Plan: He only takes metformin at home. Sliding scale for now. Will check an A1c. (5) HTN (hypertension) Qualifiers: Hypertension type: essential hypertension Qualified Code(s): I10 - Essential (primary) hypertension Is this a current diagnosis for this admission?: Yes Plan: We will hold off lisinopril today. Repeat potassium tomorrow. May decrease dose of lisinopril tomorrow or upon discharge. Plan to start patient on beta- juanjose. - Time Time Spent with patient: 25-34 minutes
--- NOTE | 2019-04-05 15:43 | ADVANCED CARE ---
- Diagnosis (1) Atypical chest pain Diagnosis Current: Yes (2) CAD (coronary artery disease) Diagnosis Current: Yes (3) Diabetes Diagnosis Current: Yes (4) HTN (hypertension) Diagnosis Current: Yes Resuscitation Status: Full Code Discussion: Discussed with patient. He is a full code and prefers chest compressions, defibrillation or mechanical ventilation if the need arises. He says that his live-in partner, Kassi Agarwal is his surrogate medical decision maker.
[2019-04-05] MEDS ORDERED: NORMAL SALINE 1000 ML 1,000 ML IV PRN (15:50)
[2019-04-05] MEDS: INSULIN LISPRO 100 UNIT/ML 3 ML VIAL SUBCUT SCH ×2 (18:28→21:43)
[2019-04-05] MEDS ORDERED: PREGABALIN 100 MG CAPSULE PO ONE (20:30)
[2019-04-05] MEDS ORDERED: PRAMIPEXOLE DI-HCL 0.5 MG TABLET ONE (21:40)
[2019-04-05] MEDS: HEPARIN SOD (PORCINE) 5,000 UNIT/ML 1 ML VIAL SUBCUT SCH (21:42)
[2019-04-05] MEDS: EZETIMIBE 10 MG TABLET PO SCH (21:43)
[2019-04-05] MEDS: PRAMIPEXOLE DI-HCL 0.5 MG TABLET PO SCH (21:43)
[2019-04-05] MEDS: SIMVASTATIN 40 MG TABLET PO SCH (21:44)
[2019-04-05] MEDS ORDERED: EZETIMIBE PO SCH (22:00)
[2019-04-05] MEDS ORDERED: SIMVASTATIN PO SCH (22:00)
[2019-04-06 03:25] LABS: ANION GAP 8 (5-19); BLOOD UREA NITROGEN 23 mg/dL (7-20); CALCIUM 9.6 mg/dL (8.4-10.2); CARBON DIOXIDE 28 mmol/L (22-30); CHLORIDE 107 mmol/L (98-107); GLUCOSE 94 mg/dL (75-110); POTASSIUM 4.5 mmol/L (3.6-5.0)
[2019-04-06] MEDS: PANTOPRAZOLE SODIUM 40 MG TABLET.DR PO SCH (06:44)
[2019-04-06] MEDS: INSULIN LISPRO 100 UNIT/ML 3 ML VIAL SUBCUT SCH ×4 (08:01→21:38)
[2019-04-06] MEDS ORDERED: ASPIRIN 81 MG TABLET, ENT COATED PO SCH (10:00)
[2019-04-06] MEDS ORDERED: LISINOPRIL 10 MG TABLET PO SCH (10:00)
[2019-04-06] MEDS ORDERED: ASPIRIN 81 MG TABLET, CHEWABLE PO SCH (10:00)
[2019-04-06] MEDS: PREGABALIN 100 MG CAPSULE PO SCH ×2 (11:13→21:09)
[2019-04-06] MEDS: HEPARIN SOD (PORCINE) 5,000 UNIT/ML 1 ML VIAL SUBCUT SCH ×2 (11:16→21:10)
--- NOTE | 2019-04-06 15:40 | DRAGON STRESS TEST REPORT ---
Exercise EKG treadmill Cardiolite stress test using SPECT. Data procedure: 04/06/2019. Ordering Physician: Dr. Flex Saenz. Patient Status: NCAT patient. PATIENT'S NEWSPAPER COLUMNIST: Dr. Buck. Indication:: Chest pain. Patient with known history of coronary artery disease and history of coronary artery bypass graft surgery. Coronary risk factors:. Age, diabetes mellitus, family history of coronary artery disease, and hypertension. Significant physical findings prior to stress testing show a blood pressure of 141/67, and a heart rate of 61 beats per minute. Auscultation of the heart shows normal S1 and S2. No S3 or S4 gallops. Systolic murmur in the left sternal border and apex. Lungs are clear to auscultation and percussion. Resting 12-lead EKG:. Sinus Rhythm. T inversion in leads I and aVL. Procedure: The patient was excised on a standard Jose M protocol. . The patient walked a total of 5 minutes and 6 seconds on this protocol and reached a peak heart rate of 142 beats per minute, which is 94% maximum predicted heart rate for age. This is at a workload of 7 METS. The test was stopped because of achievement of target heart rate. The patient described no symptoms of chest pain/discomfort Exercise EKG's show: [address] segment depression in multiple leads consistent with exercise-induced ischemia. Arrhythmias seen: None. The blood pressure response was normal at peak exercise the blood pressure was 198/71 millimeters of Hg. The double product was 28.1 K. Summary of findings and interpretation: 1. No chest pain or chest discomfort symptoms reproduced. 2. There is EKG evidence of exercise-induced ischemia in the form of ST segment depression in multiple leads 3. Normal blood pressure response. 4. No arrhythmias seen. 5. Fair exercise tolerance, fair aerobic capacity. Diagnostic treadmill stress test positive for ischemia by EKG criteria. Recommendations: Correlate with nuclear Cardiolite images. Nuclear data: At rest the patient was given millicuries of technetium 99 sestamibi, and as per protocol rest none gated SPECT images were obtained. The patient was exercised on a treadmill [see exercise physiology]. One minute prior to termination of exercise, millicuries of technetium and there sestamibi was injected intravenously. As per protocol stress gated images were obtained. Impression: Review of images show that there is moderate to severe perfusion defect in the stress images involving the inferior wall which normalizes in the rest images in this area. This inferior wall area has normal motion and contraction by gated study. Hence this is compatible with Lexiscan induced inferior wall reversible ischemia. Also there is a perfusion defect of moderate intensity involving the distal lateral in the stress images, with at rest there being only mild perfusion defect. This distal lateral wall has decreased motion contraction and thickening by gated study. Hence there is at least moderate reversible ischemia in the distal lateral wall in the setting of myocardial infarction. The rest of the segments of the myocardium had normal perfusion at rest, and normal perfusion post exercise. The rest of the segments of the myocardium had normal motion, contraction, and thickening by gated study. T. I D. ratio was normal at 1.13.. The computer read rest and stress left ventricular ejection fractions were 43 %, and 46 % respectively. IMPRESSION: 1. No clinical symptoms of exercise-induced myocardial ischemia at a peak heart rate of 142 beats per minute, patient having achieved 94 % of maximum predicted heart rate for age, at a workload of 7 METS. 2. There is EKG evidence of exercise-induced myocardial ischemia. 3. No arrhythmias seen. 4. There is scintigraphic evidence of exercise-induced myocardial ischemia which is of moderate to severe intensity involving the inferior wall, and of moderate intensity of the distal lateral wall in the setting of a mild distal lateral wall scar/myocardial infarction.. 5.There is scintigraphic evidence of mild myocardial infarction/scar involving the distal lateral wall. Recommendations 1. Recommend cardiac catheterization to assess coronary anatomy, tunica-biloxi and bypass grafts' 2. Aggressive coronary risk factor modification, and treatment of underlying comorbidities. 3. Check echocardiogram for LV ejection fraction correlation. [facility]
--- NOTE | 2019-04-06 16:14 | PDOC TRANSFER SUMMARY ---
General Admission Date/PCP: 04/05/19 15:26 ASHER LUDWIG MD Admission Date: 04/05/19 Transfer Date: 04/06/19 Resuscitation Status: Full Code - Transfer Diagnosis (1) Atypical chest pain Is this a current diagnosis for this admission?: Yes (2) CAD (coronary artery disease) Is this a current diagnosis for this admission?: Yes (3) Diabetes Is this a current diagnosis for this admission?: Yes (4) HTN (hypertension) Is this a current diagnosis for this admission?: Yes - Transfer Medications Home Medications: Lisinopril [Prinivil 10 mg Tablet] 10 mg PO DAILY 05/23/18 Metformin HCl [Glucophage XR 500 mg Tablet] 1,000 mg PO BIDBS 05/23/18 Niacin [Niaspan] 1,000 mg PO QHS 05/23/18 Pregabalin [Lyrica] 300 mg PO Q12 05/23/18 Dexlansoprazole [Dexilant 60 mg Capsule] 60 mg PO DAILY 08/03/18 Aspirin [Ecotrin 81 mg EC Tablet] 81 mg PO DAILY 04/05/19 Ezetimibe/Simvastatin [Ezetimibe-Simvastatin 10-80 mg] 1 tab PO QHS 04/05/19 Transfer Medications: Current Medications Aspirin (Ecotrin 81 Mg Ec Tablet) 81 mg PO DAILY [facility] Stop: 05/06/19 09:59 Last Admin: 04/06/19 11:16 Dose: 81 mg Documented by: Dextrose (Dextrose Inj 50% Syringe (25 Gm/50 Ml)) 12.5 gm IV PRN PRN; Protocol PRN Reason: FOR BG 50-69 IN ALERT PATIENT Stop: 05/05/19 15:27 Dextrose (Dextrose Inj 50% Syringe (25 Gm/50 Ml)) 25 gm IV PRN PRN; Protocol PRN Reason: PER PROTOCOL Stop: 05/05/19 15:27 Ezetimibe (Zetia 10 Mg Tablet) 10 mg PO QHS [facility] Stop: 05/05/19 21:59 Last Admin: 04/05/19 21:43 Dose: 10 mg Documented by: Glucagon (Glucagen Inj 1 Mg Vial) 1 mg IM PRN PRN; Protocol PRN Reason: Evaluate for BG < 70 Stop: 05/05/19 15:27 Glucose (Glutose 40% Gel 15 Gm Tube) 15 gm PO PRN PRN; Protocol PRN Reason: FOR BG 50-69 IN ALERT PATIENT Stop: 05/05/19 15:27 Glucose (Glutose 40% Gel 15 Gm Tube) 30 gm PO PRN PRN; Protocol PRN Reason: FOR BG < 50 IN ALERT PATIENT Stop: 05/05/19 15:27 Heparin Sodium (Porcine) (Heparin Inj 5,000 Units/Ml 1 Ml Vial) 5,000 unit SUBCUT Q12 [facility] Stop: 05/05/19 21:59 Last Admin: 04/06/19 11:16 Dose: 5,000 unit Documented by: Hydralazine HCl (Apresoline Inj/Pf 20 Mg/1 Ml Sdv) 10 mg IV Q6HP PRN PRN Reason: for SBP>160 or DBP>100 Stop: 05/05/19 15:40 Sodium Chloride (Nacl 0.9% 1000 Ml Iv Soln) 1,000 mls @ 50 mls/hr IV CONTINUOUS PRN PRN Reason: THIS MED IS NOT "PRN" Stop: 05/05/19 15:49 Last Admin: 04/05/19 19:22 Dose: 50 mls/hr Documented by: Insulin Human Lispro (Humalog Insulin 100 Unit/1 Ml 3 Ml Vial) 0 - 12 unit SUBCUT ACHS [facility]; Protocol Stop: 05/05/19 15:59 Last Admin: 04/06/19 11:33 Dose: 2 unit Documented by: Lisinopril (Prinivil 10 Mg Tablet) 10 mg PO DAILY [facility] Stop: 05/06/19 09:59 Last Admin: 04/06/19 11:13 Dose: 10 mg Documented by: Nitroglycerin (Nitrostat 0.4 Mg (1/150 Gr) Tabs 25/Bottle) 1 tab SL Q5MP PRN PRN Reason: FOR CHEST PAIN Stop: 05/05/19 15:27 Pantoprazole Sodium (Protonix [address] Tablet) 40 mg PO Q6AM [facility] Stop: 05/06/19 05:59 Last Admin: 04/06/19 06:44 Dose: Not Given Documented by: Pramipexole Dihydrochloride (Mirapex 0.5 Mg Tablet) 0.5 mg PO QHS [facility] Stop: 05/05/19 21:59 Last Admin: 04/05/19 21:43 Dose: 0.5 mg Documented by: Pregabalin (Lyrica 100 Mg Capsule) 300 mg PO Q12 [facility] Stop: 05/06/19 09:59 Last Admin: 04/06/19 11:13 Dose: 300 mg Documented by: Simvastatin (Zocor 40 Mg Tablet) 80 mg PO QHS [facility] Stop: 05/05/19 21:59 Last Admin: 04/05/19 21:44 Dose: 80 mg Documented by: Sodium Chloride (Saline Flush 2.5 Ml Monoject Prefil Syrin) 2.5 ml IV Q8 [facility] Stop: 05/05/19 21:59 Last Admin: 04/06/19 14:02 Dose: 2.5 ml Documented by: - Allergies Allergies/Adverse Reactions: atorvastatin [From Lipitor] Adverse Reaction (Unknown, Verified 04/05/19 07:31) Diarrhea lovastatin [From Mevacor] Adverse Reaction (Unknown, Verified 04/05/19 07:31) Diarrhea - Diet/Activity Discharge Diet: Cardiac Hospital Course Hospital Course: MARKO SANDHU is a 68 year old male with a past medical history of hypertension, diabetes mellitus type 2, CAD with prior CABG who presented with chest pain. Patient was admitted for chest pain rule out ACS. His EKG did not show any acute changes. His troponins have all been negative x4. Patient did undergo stress testing today. Results discussed with software development analyst. Stress testing shows moderate to severe reversible defect in the inferior wall and distal lateral wall. Cardiology recommends cardiac catheterization. Patient follows up with Dr. Buck at [facility]. Discussed with [facility] on-call software development analyst, Dr. Ross, Dr. Buck's partner. Patient does need a cath and will likely need a possible graft intervention. He strongly recommends doing the cardiac cath at [facility]. Patient be transferred to [facility]. Discussed with [facility] hospitalist, Dr. Byrd who has accepted the transfer. Physical Exam Vital Signs: Temp Pulse Resp BP Pulse Ox 98.1 F 64 16 123/48 L 100 04/06/19 12:01 04/06/19 12:01 04/06/19 12:01 04/06/19 12:01 04/06/19 12:01 Intake & Output 04/05/19 04/06/19 04/07/19 06:59 06:59 06:59 Intake Total 240 Output Total 900 Balance -660 Weight 215 lb 9.793 oz General appearance: PRESENT: no acute distress, well-developed, well-nourished Head exam: PRESENT: atraumatic, normocephalic Eye exam: PRESENT: conjunctiva pink, EOMI, PERRLA. ABSENT: scleral icterus Ear exam: PRESENT: normal external ear exam Mouth exam: PRESENT: moist, tongue midline Neck exam: ABSENT: carotid bruit, JVD, lymphadenopathy, thyromegaly Respiratory exam: PRESENT: clear to auscultation anamika. ABSENT: rales, rhonchi, wheezes Cardiovascular exam: PRESENT: RRR. ABSENT: diastolic murmur, rubs, systolic murmur Pulses: PRESENT: normal dorsalis pedis pul GI/Abdominal exam: PRESENT: normal bowel sounds, soft. ABSENT: distended, guarding, mass, organolmegaly, rebound, tenderness Rectal exam: PRESENT: deferred Extremities exam: PRESENT: full ROM. ABSENT: calf tenderness, clubbing, pedal edema Neurological exam: PRESENT: alert, awake, oriented to person, oriented to place, oriented to time, oriented to situation, CN II-XII grossly intact. ABSENT: motor sensory deficit Results Laboratory Results: 04/05/19 10:00 04/06/19 02:26 04/06/19 02:26 Sodium 142.6 Potassium 4.5 Chloride 107 Carbon Dioxide 28 Anion Gap 8 BUN 23 H Creatinine 1.19 Est GFR ( Amer) > 60 Est GFR (Non-Af Amer) > 60 Glucose 94 Calcium 9.6 04/05/19 04/05/19 04/05/19 10:00 10:00 14:10 Creatine Kinase 96 CK-MB (CK-2) 1.26 Troponin I < 0.012 < 0.012 04/05/19 04/06/19 19:55 02:26 Creatine Kinase CK-MB (CK-2) Troponin I < 0.012 < 0.012 Impressions: Chest X-Ray 04/05/19 09:00 IMPRESSION: NO ACUTE RADIOGRAPHIC FINDING IN THE CHEST.
[2019-04-06] MEDS: PRAMIPEXOLE DI-HCL 0.5 MG TABLET PO SCH (21:09)
[2019-04-06] MEDS: SIMVASTATIN 40 MG TABLET PO SCH (21:09)
[2019-04-06] MEDS: EZETIMIBE 10 MG TABLET PO SCH (21:09)
[2019-04-07] MEDS: PANTOPRAZOLE SODIUM 40 MG TABLET.DR PO SCH (05:02)
[2019-04-07 05:47] VITALS: BP 137/64
== END 2019-04-07 05:45 | disposition short-term general hospital (02) ==
LOC: ER 07:30 → INTOOBSV 15:26 → EH 15:26 → 4S 19:51
PROVIDERS: ADMIT Internal Medicine; ATTEND Internal Medicine
DX: R07.89 Other chest pain (principal); I25.10 Atherosclerotic heart disease of native coronary artery without angina pectoris; E11.9 Type 2 diabetes mellitus without complications; I10 Essential (primary) hypertension; E87.5 Hyperkalemia; R61 Generalized hyperhidrosis; R06.02 Shortness of breath; G89.28 Other chronic postprocedural pain; M25.512 Pain in left shoulder; G62.9 Polyneuropathy, unspecified; I25.2 Old myocardial infarction; R10.9 Unspecified abdominal pain; R11.2 Nausea with vomiting, unspecified; R19.7 Diarrhea, unspecified; R00.1 Bradycardia, unspecified; R60.0 Localized edema; E78.5 Hyperlipidemia, unspecified; Z79.899 Other long term (current) drug therapy; Z79.82 Long term (current) use of aspirin; Z79.84 Long term (current) use of oral hypoglycemic drugs; Z95.1 Presence of aortocoronary bypass graft; Z82.49 Family history of ischemic heart disease and other diseases of the circulatory system; Z87.891 Personal history of nicotine dependence; Z86.19 Personal history of other infectious and parasitic diseases
CPT/HCPCS: 93005; 99285; 96374; 96375; 36415 ×2; 82553; 82962 ×2; 82550; 84132; 85025; 85610; 85730; 80048; 80053; 84484 ×2; 83036; 93017; 71046; 78452; 93010; G0378 ×4; A9500; A9270 ×14; J0610; J1644 ×2; J3490 ×2; J7030; Q9969; J1815

== ENCOUNTER 2020-03-09 08:16 | Emergency (ER) | payer MEDICARE, BC, OTHER ==
[2020-03-09] MEDS ORDERED: ONDANSETRON HCL INJ/PF 4 MG/2 ML SDV IV ONE (08:54)
[2020-03-09] MEDS ORDERED: NORMAL SALINE 1000 ML 1,000 ML IV ONE (08:54)
[2020-03-09 09:08] LABS: ABSOLUTE EOSINOPHILS # (AUTO) 0.1 10^3/uL (0.0-0.6); ABSOLUTE LYMPHOCYTES (AUTO) 1.2 10^3/uL (0.5-4.7); ABSOLUTE MONOCYTES (AUTO) 0.5 10^3/uL (0.1-1.4); ABSOLUTE NEUT (AUTO) 4.5 10^3/uL (1.7-8.2); BASOPHILS % (AUTO) 0.7 % (0-2); EOSINOPHILS % (AUTO) 2.2 % (0-6); HEMATOCRIT 39.3 % (37.9-51.0); HEMOGLOBIN 13.3 g/dL (13.5-17.0); LYMPHOCYTES % (AUTO) 19.3 % (13-45); MEAN CORPUSCULAR HEMOGLOBIN 28.7 pg (27.0-33.4); MEAN CORPUSCULAR HGB CONC 33.8 g/dL (32.0-36.0); MEAN CORPUSCULAR VOLUME 85 fl (80-97); MONOCYTES % (AUTO) 7.7 % (3-13); PLATELET COUNT 189 10^3/uL (150-450); RED BLOOD COUNT 4.63 10^6/uL (4.35-5.55); RED CELL DISTRIBUTION WIDTH 14.1 % (11.5-14.0); SEGMENTED NEUTROPHILS % (AUTO) 70.1 % (42-78); TOTAL CELLS COUNTED % (AUTO) 100 %; WHITE BLOOD COUNT 6.4 10^3/uL (4.0-10.5)
[2020-03-09 09:31] LABS: ANION GAP 7 (5-19); BLOOD UREA NITROGEN 20 mg/dL (7-20); CALCIUM 9.6 mg/dL (8.4-10.2); CARBON DIOXIDE 26 mmol/L (22-30); CHLORIDE 105 mmol/L (98-107); GLUCOSE 141 mg/dL (75-110); POTASSIUM 4.6 mmol/L (3.6-5.0)
--- NOTE | 2020-03-09 09:50 | ER Document Report ---
ED General - General Chief Complaint: Diarrhea Stated Complaint: DIARRHEA Time Seen by Provider: 03/09/20 08:20 Primary Care Provider: ASHER LUDWIG MD [Primary Care Provider] - Follow up as needed Notes: 69-year-old male presents with diarrhea nausea decreased oral intake and weakness for about 2 to 3 days. Feels dehydrated. Decreased urine output. Not on a diuretic. History of diabetes well controlled with good A1c. Exposure to COVID pending individual who there suspect has it but has her no test results ba ck. No fever no sore throat. Dull abdominal ache but no localized pain. TRAVEL OUTSIDE OF THE [place] IN LAST 30 DAYS: No - Related Data Allergies/Adverse Reactions: atorvastatin [From Lipitor] Adverse Reaction (Unknown, Verified 04/05/19 07:31) Diarrhea lovastatin [From Mevacor] Adverse Reaction (Unknown, Verified 04/05/19 07:31) Diarrhea Past Medical History - General Information source: Patient - Social History Smoking Status: Unknown if Ever Smoked Family History: CAD, Hyperlipidemia, Hypertension, Malignancy Patient has homicidal ideation: No - Past Medical History Cardiac Medical History: Reports: Hx Coronary Artery Disease, Hx Heart Attack - 05/06/1993, Hx Hypercholesterolemia, Hx Hypertension Denies: Hx Congestive Heart Failure Pulmonary Medical History: Denies: Hx Asthma, Hx Bronchitis, Hx COPD, Hx Pneumonia, Hx Tuberculosis Neurological Medical History: Denies: Hx Seizures, Hx Parkinson's Disease Endocrine Medical History: Reports: Hx Diabetes Mellitus Type 1, Hx Diabetes Mellitus Type 2 Renal/ Medical History: Denies: Hx Benign Prostatic Hyperplasia, Hx End Stage Renal Disease, Hx Kidney Stones, Hx Peritoneal Dialysis GI Medical History: Reports: Hx Gastroesophageal Reflux Disease. Denies: Hx Cirrhosis, Hx Ulcer Musculoskeletal Medical History: Reports Hx Arthritis - back, left hip, Denies Hx Multiple Sclerosis Psychiatric Medical History: Denies: Hx Bipolar Disorder, Hx Depression, Hx Schizophrenia Past Surgical History: Reports: Hx Cardiac Surgery - CABG x3, with complicated postoperative course including infection, Hx Coronary Artery Bypass Graft - 93, Hx Coronary Stent, Hx Orthopedic Surgery, Hx Tonsillectomy - Immunizations Immunizations up to date: Yes Hx Diphtheria, Pertussis, Tetanus Vaccination: Yes - 2000 Review of Systems - Review of Systems Notes: REVIEW OF SYSTEMS GEN: Denies fever, chills, weight loss ENT: Denies sore throat, nasal discharge, ear pain EYES: Denies blurry vision, eye pain, discharge CV: Denies chest pain, palpitations, edema RESP: Denies cough, shortness of breath, wheezing GI: PI MSK: Denies joint pain/swelling, edema, SKIN: Denies rash, skin lesions LYMPH: Denies swollen glands/lymph nodes NEURO: Denies headache, focal weakness or numbness, dizziness PSYCH: Denies depression, suicidal or homicidal ideation PHYSICAL EXAMINATION General: No acute distress, well-nourished Head: Atraumatic, normocephalic ENT: Mouth normal, oropharynx moist, lips normal Eyes: Conjunctiva normal, pupils equal, lids normal Neck: No JVD, supple, no guarding Resp: No resp distress, equal chest rise GI: Nondistended, no guarding. No tenderness. Examined remotely via nurse via telemedicine. Back: No midline or CVA tenderness Ext: No deformities, no edema Skin: Well-perfused, no rash Neuro: Awake, alert. Face symmetric. Physical Exam - Vital signs Vitals: Pulse Resp BP Pulse Ox 60 16 153/70 H 99 03/09/20 08:57 03/09/20 08:57 03/09/20 08:57 03/09/20 08:57 Course - Re-evaluation Re-evalutation: 03/09/20 09:48 Diarrhea dehydration in a patient exposure to COVID Does not appear horribly dry and has no abdominal tenderness Vitals normal Labs normal Given IV fluids and antiemeticsfeeling better. Lack of white count fever focal tenderness argues against need for scan. 03/09/20 15:07 Patient is tolerating p.o. and discharged home with symptomatic therapy. - Vital Signs Vital signs: Temp Pulse Resp BP Pulse Ox 97.8 F 60 16 182/60 H 97 03/09/20 10:01 03/09/20 10:01 03/09/20 10:01 03/09/20 10:01 03/09/20 10:01 - Laboratory Result Diagrams: 03/09/20 08:45 03/09/20 08:45 Laboratory results interpreted by me: 03/09/20 03/09/20 08:45 08:45 Hgb 13.3 L RDW 14.1 H Creatinine 1.29 H Est GFR (MDRD) Non-Af 55 L Glucose 141 H Discharge - Discharge Clinical Impression: Diarrhea Qualifiers: Diarrhea type: unspecified type Qualified Code(s): R19.7 - Diarrhea, unspecified Condition: Good Disposition: HOME, SELF-CARE Instructions: Dehydration ([facility]) Additional Instructions: Follow-up with your primary care provider in 5 days. Your coronavirus testing is pending. You have been evaluated for complaints or symptoms which could reflect infection with coronavirus/Covid-19 disease. In the emergency department we are incapable of testing every patient and given the prevalence of the disease in this community you should assume you are infected. Please stay at home with minimal interaction to others, wash your hands, practice social distancing while at home, and remained at home without any travel outside of the home for: 1. At least 3 days (72 hours) have passed since recovery defined as resolution of fever without the use of fever-reducing medications and improvement in respiratory symptoms (e.g., cough, shortness of breath) AND 2. At least 7 days have passed since symptoms first appeared. Prescriptions: Loperamide HCl [Imodium 2 mg Capsule] 2 mg PO Q4HP PRN #21 cap PRN Reason: Ondansetron [Ondansetron Odt] 8 mg PO Q6HP PRN #10 tab.rapdis PRN Reason: Referrals: ASHER LUDWIG MD [Primary Care Provider] - Follow up as needed
[2020-03-09 10:02] VITALS: BP 182/60
== END 2020-03-09 10:02 | disposition home or self-care (01) ==
LOC: ER 08:16
DX: R19.7 Diarrhea, unspecified (principal); R11.0 Nausea; E86.0 Dehydration; Z20.828 Contact with and (suspected) exposure to other viral communicable diseases; Z95.1 Presence of aortocoronary bypass graft; I25.2 Old myocardial infarction
CPT/HCPCS: 99284; 36415; 85025; 80048; U0003; J2405; J7030; C9803; 87635

== ENCOUNTER 2020-03-13 09:54 | Inpatient (IN) | payer MEDICARE, BC ==
[2020-03-13] MEDS ORDERED: ONDANSETRON HCL INJ/PF 4 MG/2 ML SDV IV ONE ×2 (11:38→15:00)
[2020-03-13] MEDS ORDERED: NORMAL SALINE 1000 ML 1,000 ML IV ONE ×2 (11:38→14:54)
--- NOTE | 2020-03-13 12:38 | ER Document Report ---
ED General - General Chief Complaint: Nausea/Vomiting/Diarrhea Stated Complaint: VOMITING,DIARRHEA Time Seen by Provider: 03/13/20 11:37 Notes: HPI: 69-year-old male who presents today with continued nausea, vomiting, and diarrhea. This started about a week ago. He was seen here at that time. He states that he has not vomited again until today. He was taken Imodium. He denies any recent trips or travel. No recent antibiotics. He states that there is no blood or bile in the vomit and no blood in the diarrhea. He denies any upper abdominal or chest pain. No cough or shortness of breath. Afebrile. No dysuria. Patient has had a history of cholecystectomy as well as bypass. Patient's girlfriend has had no exact similar symptoms but has felt lethargic and weak for the last 2 weeks. She did have a coronavirus test which was n egative. ROS: See HPI All other review of systems reviewed and otherwise negative Reviewed vital signs and nursing note as charted by RN. PHYSICAL EXAM: CONSTITUTIONAL: Alert and oriented and responds appropriately to questions. Well-appearing; well-nourished HEAD: Normocephalic; atraumatic EYES: Sclerae non-icteric ENT: Normal nose; no rhinorrhea; moist mucous membranes; pharynx without lesions noted NECK: Supple without meningismus; non-tender; no cervical lymphadenopathy, no masses CARD: Regular rate and rhythm; no murmurs; symmetric distal pulses RESP: Normal chest excursion without splinting or tachypnea; breath sounds clear and equal bilaterally; no wheezes, no rhonchi, no rales ABD/GI: Normal bowel sounds; old abdominal midline scar from the chest to the upper abdomen; no focal tenderness; soft, non-tender; no palpable organomegaly or masses BACK: The back appears normal and is non-tender to palpation EXT: Normal ROM in all joints; non-tender to palpation; no edema SKIN: No acute lesions noted NEURO: CN 2-12 intact; 5/5 bilateral upper and lower extremity strength with sensation intact to light touch PSYCH: The patient's mood and manner are appropriate. Grooming and personal hygiene are appropriate. TRAVEL OUTSIDE OF THE [place] IN LAST 30 DAYS: No - Related Data Allergies/Adverse Reactions: atorvastatin [From Lipitor] Adverse Reaction (Unknown, Verified 04/05/19 07:31) Diarrhea lovastatin [From Mevacor] Adverse Reaction (Unknown, Verified 04/05/19 07:31) Diarrhea Home Medications: Metformin, Lisinopril, Lasix, Ezetimibe Past Medical History - Social History Smoking Status: Never Smoker Family History: CAD, Hyperlipidemia, Hypertension, Malignancy - Past Medical History Cardiac Medical History: Reports: Hx Coronary Artery Disease, Hx Heart Attack - 05/06/1993, Hx Hypercholesterolemia, Hx Hypertension Denies: Hx Congestive Heart Failure Pulmonary Medical History: Denies: Hx Asthma, Hx Bronchitis, Hx COPD, Hx Pneumonia, Hx Tuberculosis Neurological Medical History: Denies: Hx Seizures, Hx Parkinson's Disease Endocrine Medical History: Reports: Hx Diabetes Mellitus Type 1, Hx Diabetes Mellitus Type 2 Renal/ Medical History: Denies: Hx Benign Prostatic Hyperplasia, Hx End Stage Renal Disease, Hx Kidney Stones, Hx Peritoneal Dialysis GI Medical History: Reports: Hx Gastroesophageal Reflux Disease. Denies: Hx Cirrhosis, Hx Ulcer Musculoskeletal Medical History: Reports Hx Arthritis - back, left hip, Denies Hx Multiple Sclerosis Psychiatric Medical History: Denies: Hx Bipolar Disorder, Hx Depression, Hx Schizophrenia Past Surgical History: Reports: Hx Cardiac Surgery - CABG x3, with complicated postoperative course including infection, Hx Coronary Artery Bypass Graft - 93, Hx Coronary Stent, Hx Orthopedic Surgery, Hx Tonsillectomy - Immunizations Immunizations up to date: Yes Hx Diphtheria, Pertussis, Tetanus Vaccination: Yes - 2000 Physical Exam - Vital signs Vitals: Temp Pulse Resp BP Pulse Ox 98.4 F 70 16 155/59 H 95 03/13/20 10:03 03/13/20 10:03 03/13/20 10:03 03/13/20 10:03 03/13/20 10:03 Course - Re-evaluation Re-evalutation: Given the above history and physical with prolonged symptoms, age of the patient, we will obtain basic labs, liver panel and lipase, obtain a CT scan of the abdomen and pelvis. I would like to evaluate for the possibility of acute abdominal infection or blockage. I will also order a C. difficile and a stool culture. Vital signs as recorded in the patient's exam is initially very benign. 03/13/20 12:37 Labs initially as recorded. No change in exam. - Vital Signs Vital signs: Temp Pulse Resp BP Pulse Ox 98.4 F 70 16 155/59 H 95 03/13/20 10:03 03/13/20 10:03 03/13/20 10:03 03/13/20 10:03 03/13/20 10:03 - Laboratory Result Diagrams: 03/13/20 12:10 03/13/20 12:10 Laboratory results interpreted by me: 03/13/20 03/13/20 03/13/20 12:10 12:10 14:00 Lymph % (Auto) 7.9 L [place] % (Auto) 2.5 L Absolute Neuts (auto) 8.7 H Seg Neutrophils % 88.7 H Potassium 5.4 H Carbon Dioxide 18 L BUN 33 H Creatinine 1.87 H Est GFR ( Amer) 43 L Est GFR (MDRD) Non-Af 36 L Glucose 113 H Albumin 5.1 H Urine Protein 30 H Urine Ketones 80 H Discharge - Discharge Clinical Impression: Dehydration Nausea & vomiting Qualifiers: Vomiting type: unspecified Vomiting Intractability: non-intractable Qualified Code(s): R11.2 - Nausea with vomiting, unspecified Diarrhea Qualifiers: Diarrhea type: unspecified type Qualified Code(s): R19.7 - Diarrhea, unspecified Condition: Fair Disposition: ADMITTED OBSERVATION Admitting Provider: Deisy (Hospitalist) Unit Admitted: Medical Floor
[2020-03-13 12:53] LABS: ABSOLUTE BASOPHILS # (AUTO) 0.1 10^3/uL (0.0-0.2); ABSOLUTE LYMPHOCYTES (AUTO) 0.8 10^3/uL (0.5-4.7); ABSOLUTE MONOCYTES (AUTO) 0.2 10^3/uL (0.1-1.4); ABSOLUTE NEUT (AUTO) 8.7 10^3/uL (1.7-8.2); BASOPHILS % (AUTO) 0.7 % (0-2); EOSINOPHILS % (AUTO) 0.2 % (0-6); HEMATOCRIT 42.9 % (37.9-51.0); HEMOGLOBIN 14.6 g/dL (13.5-17.0); LYMPHOCYTES % (AUTO) 7.9 % (13-45); MEAN CORPUSCULAR HEMOGLOBIN 28.9 pg (27.0-33.4); MEAN CORPUSCULAR HGB CONC 34.1 g/dL (32.0-36.0); MEAN CORPUSCULAR VOLUME 85 fl (80-97); MONOCYTES % (AUTO) 2.5 % (3-13); PLATELET COUNT 223 10^3/uL (150-450); RED BLOOD COUNT 5.07 10^6/uL (4.35-5.55); SEGMENTED NEUTROPHILS % (AUTO) 88.7 % (42-78); TOTAL CELLS COUNTED % (AUTO) 100 %; WHITE BLOOD COUNT 9.8 10^3/uL (4.0-10.5)
[2020-03-13 13:09] LABS: ALBUMIN 5.1 g/dL (3.5-5.0); ALKALINE PHOSPHATASE 116 U/L (38-126); ANION GAP 17 (5-19); ASPARTATE AMINO TRANSFERASE 24 U/L (17-59); BILIRUBIN,DIRECT 0.2 mg/dL (0.0-0.4); BILIRUBIN,TOTAL 1.1 mg/dL (0.2-1.3); BLOOD UREA NITROGEN 33 mg/dL (7-20); CALCIUM 10.2 mg/dL (8.4-10.2); CARBON DIOXIDE 18 mmol/L (22-30); CHLORIDE 106 mmol/L (98-107); GLUCOSE 113 mg/dL (75-110); POTASSIUM 5.4 mmol/L (3.6-5.0); TOTAL PROTEIN 7.9 g/dL (6.3-8.2)
--- NOTE | 2020-03-13 14:16 | RADIOLOGY REPORT (SQ) ---
EXAM DESCRIPTION: CT ABD/PELVIS NO ORAL OR IV IMAGES COMPLETED DATE/TIME: 03/13/2020 12:53 pm REASON FOR STUDY: pain, vomiting, diarrhea COMPARISON: Abdominal ultrasound, 05/23/2028 seen TECHNIQUE: CT scan of the abdomen and pelvis performed without intravenous or oral contrast. Images reviewed with lung, soft tissue, and bone windows. Reconstructed coronal and sagittal MPR images revi ewed. All images stored on PACS. All CT scanners at this facility use dose modulation, iterative reconstruction, and/or weight based d osing when appropriate to reduce radiation dose to as low as reasonably achievable (ALARA). [facility]: Dose Right [facility]: CareDose [facility]: Dose Right [facility]: Teradose 4D [facility]: Smart [employer] RADIATION DOSE: CT Rad equipment meets quality standard of care and radiation dose reduction techniq ues were employed. CTDIvol: 11.3 mGy. DLP: 610 mGy-cm.mGy. LIMITATIONS: None. FINDINGS: LOWER CHEST: No significant findings. No nodules or infiltrates. NON-CONTRASTED LIVER, SPLEEN, ADRENALS: Evaluation limited by lack of IV contrast. No identified sign ificant masses. PANCREAS: No masses. No peripancreatic inflammatory changes. GALLBLADDER: Surgically absent. RIGHT KIDNEY AND URETER: There is an indeterminate 4 cm mass at the superior pole right kidney with i ndeterminate mildly heterogeneous density. No mass or cyst was seen on previous renal ultrasound. No significant calcifications. No hydronephrosis or hydroureter. LEFT KIDNEY AND URETER: No suspicious masses. Assessment limited by lack of IV contrast. No signifi cant calcifications. No hydronephrosis or hydroureter. AORTA AND RETROPERITONEUM: No aneurysm. No retroperitoneal masses or adenopathy. BOWEL AND PERITONEAL CAVITY: No obvious masses or inflammatory changes. No free fluid. APPENDIX: Normal. PELVIS, BLADDER, AND ABDOMINAL WALL:Calcified pelvic phleboliths. Prostate has normal size. Urinary bladder is decompressed. There is a 5 cm ventral hernia containing omentum just below and to the ri ght of the sternal. BONES: No significant findings. OTHER: No other significant finding. IMPRESSION: 1. No acute abnormality of the abdomen or pelvis to explain the patient's symptoms. 2. Indeterminate exophytic 4 cm mass at the superior pole right kidney. Further evaluation with yadira l protocol MRI or CT is recommended for complete characterization. This can be done on a nonemergent basis. 3. Fat containing ventral hernia. COMMENT: Quality ID # [id number]: Final reports with documentation of one or more dose reduction techniques (e.g., Automated exposure control, adjustment of the mA and/or kV according to patient size, use of iterative reconstruction technique) TECHNICAL DOCUMENTATION: JOB ID: [id number] 2010 [employer]- All Rights Reserved Reading location - IP/workstation name: [email or web address]
[2020-03-13 14:18] LABS: APPEARANCE,URINE CLEAR; BILIRUBIN,URINE NEGATIVE (NEGATIVE); COLOR,URINE YELLOW; GLUCOSE, URINE NEGATIVE (NEGATIVE); KETONES,URINE 80 mg/dL (NEGATIVE); LEUKOCYTE ESTERASE,URINE NEGATIVE (NEGATIVE); NITRITE,URINE NEGATIVE (NEGATIVE); PROTEIN,URINE 30 mg/dL (NEGATIVE); URINE SPECIFIC GRAVITY 1.021; UROBILINOGEN,URINE NEGATIVE mg/dL (<2.0)
[2020-03-13] MEDS ORDERED: PROMETHAZINE HCL INJ 25 MG/1 ML VIAL IV PRN (16:04)
[2020-03-13] MEDS ORDERED: OXYCODONE-ACETAMINOPHEN 5-325 MG TABLET PO PRN (16:04)
[2020-03-13] MEDS ORDERED: ACETAMINOPHEN 325 MG TABLET PO PRN (16:04)
[2020-03-13] MEDS ORDERED: IPRATROPIUM/ALBUTEROL 0.5-2.5 MG/3 ML AMPUL NEB PRN (16:04)
[2020-03-13] MEDS ORDERED: TEMAZEPAM 7.5 MG CAPSULE PO PRN (16:04)
[2020-03-13] MEDS ORDERED: DEXTROSE 40% GEL 15 GM TUBE PO PRN ×2 (16:14)
[2020-03-13] MEDS ORDERED: DEXTROSE 50%-WATER 25 GM/50 ML DISP.SYRIN IV PRN ×2 (16:14)
[2020-03-13] MEDS ORDERED: GLUCAGON,HUMAN RECOMB 1 MG INJ IM PRN (16:14)
--- NOTE | 2020-03-13 16:25 | PDOC H&P ---
History of Present Illness Admission Date/PCP: 03/13/20 15:08 History of Present Illness: MARKO SANDHU is a 69 year old male past medical history of diabetes, hypertension, CAD status post CABG x27 years CKD, presenting to ED for recurrent nausea, vomiting, diarrhea 20 pounds of weight loss for the last 10 days. Patient diarrhea restarted 2 days ago, has been having about 3-4 bowel movements a day, diarrhea is nonbloody, does not float in the toilet, does not have any mucus, is mostly watery, foul-smelling, it is associated with constant nausea and post prandial vomiting with epigastric abdominal pain which is explained as dull, constant, worse with eating, nonradiating, associated with generalized muscle ache and fatigue. Patient denies any recent travel, eating any raw food or going to any new restaurants, being exposed to anybody with similar symptoms. His partner was recently tested for COVID which came back negative, patient was also tested for COVID here at [facility] on 03/09/2020 which also came back negative. Patient stating that he is having some dental issues and was prescribed Augmentin and penicillin by his dentist for 10 and 7 days respectively. Denies any fever, chills, shortness of breath, chest pain, headache, urinary symptoms. Past Medical History Cardiac Medical History: Reports: Coronary Artery Disease, Myocardial Infarction - 05/06/1993, Hyperlipidema, Hypertension Denies: Congestive Heart Failure Pulmonary Medical History: Denies: Asthma, Bronchitis, Chronic Obstructive Pulmonary Disease (COPD), Pneumonia, Tuberculosis Neurological Medical History: Denies: Seizures Endocrine Medical History: Reports: Diabetes Mellitus Type 1, Diabetes Mellitus Type 2 Renal/ Medical History: Denies: End Stage Renal Disease GI Medical History: Reports: Gastroesophageal Reflux Disease Denies: Cirrhosis Musculoskeltal Medical History: Reports: Arthritis - back, left hip Psychiatric Medical History: Denies: Bipolar Disorder, Depression Hematology: Denies: Anemia, Bleeding Tendencies Past Surgical History Past Surgical History: Reports: Coronary Artery Bypass Graft - 93, Coronary Stent, Orthopedic Surgery, Tonsillectomy Social History Smoking Status: Never Smoker Frequency of Alcohol Use: None Hx Recreational Drug Use: No Drugs: None Hx Prescription Drug Abuse: Yes Family History Family History: CAD, Hyperlipidemia, Hypertension, Malignancy Parental Family History Reviewed: Yes Children Family History Reviewed: Yes Sibling(s) Family History Reviewed.: Yes Medication/Allergy Home Medications: Lisinopril [Prinivil 10 mg Tablet] 10 mg PO DAILY 05/23/18 Metformin HCl [Glucophage XR 500 mg Tablet] 1,000 mg PO BIDBS 05/23/18 Niacin [Niaspan] 1,000 mg PO QHS 05/23/18 Pregabalin [Lyrica] 300 mg PO Q12 05/23/18 Dexlansoprazole [Dexilant 60 mg Capsule] 60 mg PO DAILY 08/03/18 Pramipexole Di-HCl [Mirapex 0.5 mg Tablet] 0.5 mg PO QHS #3 tablet 03/21/19 Aspirin [Ecotrin 81 mg EC Tablet] 81 mg PO DAILY 04/05/19 Ezetimibe/Simvastatin [Ezetimibe-Simvastatin 10-80 mg] 1 tab PO QHS 04/05/19 Loperamide HCl [Imodium 2 mg Capsule] 2 mg PO Q4HP PRN #21 cap 03/09/20 Ondansetron [Ondansetron Odt] 8 mg PO Q6HP PRN #10 tab.rapdis 03/09/20 Allergies/Adverse Reactions: atorvastatin [From Lipitor] Adverse Reaction (Unknown, Verified 04/05/19 07:31) Diarrhea lovastatin [From Mevacor] Adverse Reaction (Unknown, Verified 04/05/19 07:31) Diarrhea Physical Exam Vital Signs: Temp Pulse Resp BP Pulse Ox 98.6 F 65 16 161/54 H 98 03/13/20 15:54 03/13/20 15:54 03/13/20 15:54 03/13/20 15:54 03/13/20 15:54 Intake & Output 03/12/20 03/13/20 03/14/20 06:59 06:59 06:59 Intake Total 1000 Balance 1000 Weight 91.4 kg General appearance: PRESENT: no acute distress, obese, well-developed, well-nou rished Respiratory exam: PRESENT: clear to auscultation anamika. ABSENT: rales, rhonchi, wheezes Cardiovascular exam: PRESENT: RRR. ABSENT: diastolic murmur, rubs, systolic murmur GI/Abdominal exam: PRESENT: normal bowel sounds, soft, tenderness - epigastric. ABSENT: distended, guarding, mass, organolmegaly, rebound Neurological exam: PRESENT: alert, awake, oriented to person, oriented to place, oriented to time, oriented to situation, CN II-XII grossly intact. ABSENT: motor sensory deficit Results Laboratory Results: 03/13/20 12:10 03/13/20 12:10 03/13/20 03/13/20 03/13/20 12:10 12:10 14:00 WBC 9.8 RBC 5.07 Hgb 14.6 Hct 42.9 MCV 85 MCH 28.9 MCHC 34.1 RDW 14.0 Plt Count 223 Seg Neutrophils % 88.7 H Sodium 140.6 Potassium 5.4 H Chloride 106 Carbon Dioxide 18 L Anion Gap 17 BUN 33 H Creatinine 1.87 H Est GFR ( Amer) 43 L Glucose 113 H Calcium 10.2 Total Bilirubin 1.1 AST 24 Alkaline Phosphatase 116 Total Protein 7.9 Albumin 5.1 H Lipase 55.3 Urine Color YELLOW Urine Appearance CLEAR Urine pH 5.0 Ur Specific [place] 1.021 Urine Protein 30 H Urine Glucose (UA) NEGATIVE Urine Ketones 80 H Urine Blood NEGATIVE Urine Nitrite NEGATIVE Ur Leukocyte Esterase NEGATIVE Urine WBC (Auto) 1 Urine RBC (Auto) 0 Impressions: Abdomen/Pelvis CT 03/13/20 12:35 IMPRESSION: 1. No acute abnormality of the abdomen or pelvis to explain the patient's symptoms. 2. Indeterminate exophytic 4 cm mass at the superior pole right kidney. Further evaluation with renal protocol MRI or CT is recommended for complete characterization. This can be done on a nonemergent basis. 3. Fat containing ventral hernia. Assessment and Plan - Diagnosis (1) Nausea vomiting and diarrhea Is this a current diagnosis for this admission?: Yes Plan: Likely gastroenteritis or C. difficile colitis given history of recent antibiotic use. Tested negative for COVID-19 as of 03/09/2020. Admit to floor, volume resuscitation guided by volume status, stool ova and parasite, stool culture, C. difficile toxin, empiric IV antibiotics, monitor electrolytes and replace as needed. (2) Acute kidney injury superimposed on CKD Is this a current diagnosis for this admission?: Yes Plan: Prerenal most likely due to dehydration caused by nausea vomiting diarrhea. Cautious volume restriction guided by volume status, strict in and out, monitor electrolytes and replace as needed, avoid nephrotoxic meds. (3) HTN (hypertension) Qualifiers: Hypertension type: essential hypertension Qualified Code(s): I10 - Essential (primary) hypertension Is this a current diagnosis for this admission?: Yes Plan: Resume home meds. Adjust meds as needed. (4) Hyperkalemia Is this a current diagnosis for this admission?: Yes Plan: Likely due to BHUPENDRA on CKD. No acute EKG change. Admit to telemetry, hyperkalemia protocol. Potassium level tomorrow. (5) CAD (coronary artery disease) Is this a current diagnosis for this admission?: Yes Plan: Denies any anginal symptoms. History of CABG 27 years ago. Resume home meds. Outpatient PCP and cardiology follow-up. (6) Diabetes Qualifiers: Diabetes mellitus type: type 2 Is this a current diagnosis for this admission?: Yes Plan: Diabetic diet, sliding scale insulin, basal insulin, correctional insulin, hypoglycemic protocol, Accu-Chek. Resume home meds upon discharge.
[2020-03-13] MEDS ORDERED: HYDRALAZINE HCL INJ/PF 20 MG/1 ML SDV IV PRN (16:49)
[2020-03-13] MEDS ORDERED: METOPROLOL TARTRATE PF/INJ 5 MG/5 ML SDV IV PRN (16:49)
[2020-03-13] MEDS: METRONIDAZOLE 500 MG/NS RTU 500 MG/100 ML RTUPB IV SCH (17:22)
--- NOTE | 2020-03-13 19:10 | EKG REPORT ---
SEVERITY:- ABNORMAL ECG - SINUS RHYTHM MULTIPLE VENTRICULAR PREMATURE COMPLEXES PROBABLE LEFT ATRIAL ABNORMALITY LOW VOLTAGE IN FRONTAL LEADS CONSIDER RIGHT VENTRICULAR HYPERTROPHY OR OLD TRUE POST MN. : Confirmed by: Alex Allred MD 13-Mar-2020 19:09:12
[2020-03-13 19:12] LABS: APPEARANCE,URINE CLEAR; BILIRUBIN,URINE NEGATIVE (NEGATIVE); COLOR,URINE YELLOW; GLUCOSE, URINE 50 mg/dL (NEGATIVE); KETONES,URINE 80 mg/dL (NEGATIVE); PROTEIN,URINE NEGATIVE (NEGATIVE); URINE SPECIFIC GRAVITY 1.018; UROBILINOGEN,URINE NEGATIVE mg/dL (<2.0)
[2020-03-13] MEDS: ONDANSETRON HCL INJ/PF 4 MG/2 ML SDV IV PRN (20:33)
[2020-03-13] MEDS ORDERED: PRAMIPEXOLE DI-HCL 0.5 MG TABLET ONE (21:50)
[2020-03-13] MEDS ORDERED: EZETIMIBE PO SCH (22:00)
[2020-03-13] MEDS ORDERED: SIMVASTATIN PO SCH (22:00)
[2020-03-13] MEDS ORDERED: (PENDING PHARMACY ID) (Rabeprazole Sodium [Rabeprazole Sodium] 20 MG) PO SCH (22:00)
[2020-03-13] MEDS: INSULIN LISPRO 100 UNIT/ML 3 ML VIAL SUBCUT SCH (22:05)
[2020-03-13] MEDS: EZETIMIBE 10 MG TABLET PO SCH (22:09)
[2020-03-13] MEDS: PANTOPRAZOLE SODIUM 40 MG TABLET.DR PO SCH (22:09)
[2020-03-13] MEDS: SIMVASTATIN 40 MG TABLET PO SCH (22:09)
[2020-03-13] MEDS: CIPROFLOXACIN 400 MG/D5W RTU 400 MG/200 ML RTUPB IV SCH (22:09)
[2020-03-13] MEDS: FAMOTIDINE 20 MG TABLET PO SCH (22:09)
[2020-03-13] MEDS: PRAMIPEXOLE DI-HCL 0.5 MG TABLET PO SCH (22:16)
[2020-03-14] MEDS: METRONIDAZOLE 500 MG/NS RTU 500 MG/100 ML RTUPB IV SCH ×4 (00:02→17:12)
[2020-03-14] MEDS: ONDANSETRON HCL INJ/PF 4 MG/2 ML SDV IV PRN ×2 (00:11→09:35)
[2020-03-14] MEDS: NORMAL SALINE 1000 ML 1,000 ML IV PRN ×2 (03:23→17:12)
[2020-03-14 04:52] LABS: ABSOLUTE EOSINOPHILS # (AUTO) 0.1 10^3/uL (0.0-0.6); ABSOLUTE LYMPHOCYTES (AUTO) 1.2 10^3/uL (0.5-4.7); ABSOLUTE MONOCYTES (AUTO) 0.8 10^3/uL (0.1-1.4); ABSOLUTE NEUT (AUTO) 5.7 10^3/uL (1.7-8.2); BASOPHILS % (AUTO) 0.5 % (0-2); EOSINOPHILS % (AUTO) 1.4 % (0-6); HEMATOCRIT 35.3 % (37.9-51.0); LYMPHOCYTES % (AUTO) 15.8 % (13-45); MEAN CORPUSCULAR HEMOGLOBIN 29.4 pg (27.0-33.4); MEAN CORPUSCULAR HGB CONC 35.3 g/dL (32.0-36.0); MEAN CORPUSCULAR VOLUME 83 fl (80-97); MONOCYTES % (AUTO) 9.8 % (3-13); PLATELET COUNT 185 10^3/uL (150-450); RED BLOOD COUNT 4.24 10^6/uL (4.35-5.55); SEGMENTED NEUTROPHILS % (AUTO) 72.5 % (42-78); TOTAL CELLS COUNTED % (AUTO) 100 %; WHITE BLOOD COUNT 7.8 10^3/uL (4.0-10.5)
[2020-03-14 04:53] LABS: HEMOGLOBIN 12.5 g/dL (13.5-17.0)
[2020-03-14 05:12] LABS: ALBUMIN 3.8 g/dL (3.5-5.0); ALKALINE PHOSPHATASE 86 U/L (38-126); ANION GAP 10 (5-19); ASPARTATE AMINO TRANSFERASE 20 U/L (17-59); BLOOD UREA NITROGEN 24 mg/dL (7-20); CARBON DIOXIDE 19 mmol/L (22-30); CHLORIDE 109 mmol/L (98-107); GLUCOSE 94 mg/dL (75-110); PHOSPHORUS 2.6 mg/dL (2.5-4.5); POTASSIUM 4.7 mmol/L (3.6-5.0); TOTAL PROTEIN 6.4 g/dL (6.3-8.2)
[2020-03-14] MEDS ORDERED: MAGNESIUM SULFATE/D5W 1 GM/100 ML RTUPB IV ONE ×2 (07:49→08:30)
[2020-03-14] MEDS: INSULIN LISPRO 100 UNIT/ML 3 ML VIAL SUBCUT SCH ×4 (07:50→22:37)
[2020-03-14] MEDS ORDERED: PROMETHAZINE HCL INJ 25 MG/1 ML VIAL IV PRN (08:30)
[2020-03-14] MEDS: ENOXAPARIN SODIUM INJ 30 MG/0.3 ML DISP.SYRIN SUBCUT SCH (09:23)
[2020-03-14] MEDS: FAMOTIDINE 20 MG TABLET PO SCH ×2 (09:23→22:36)
[2020-03-14] MEDS: CIPROFLOXACIN 400 MG/D5W RTU 400 MG/200 ML RTUPB IV SCH ×2 (09:23→22:36)
--- NOTE | 2020-03-14 12:01 | PDOC PROGRESS REPORT ---
Subjective Progress Note for:: 03/14/20 Subjective:: MARKO SANDHU is a 69 year old male past medical history of diabetes, hypertension, CAD status post CABG x27 years CKD, presenting to ED for recurrent nausea, vomiting, diarrhea 20 pounds of weight loss for the last 10 days. Patient diarrhea restarted 2 days ago, has been having about 3-4 bowel movements a day, diarrhea is nonbloody, does not float in the toilet, does not have any mucus, is mostly watery, foul-smelling, it is associated with constant nausea and post prandial vomiting with epigastric abdominal pain which is explained as dull, constant, worse with eating, nonradiating, associated with generalized muscle ache and fatigue. Patient denies any recent travel, eating any raw food or going to any new restaurants, being exposed to anybody with similar symptoms. His partner was recently tested for COVID which came back negative, patient was also tested for COVID here at [facility] on 03/09/2020 which also came back negative. Patient stating that he is having some dental issues and was prescribed Augmentin and penicillin by his dentist for 10 and 7 days respectively. Denies any fever, chills, shortness of breath, chest pain, headache, urinary symptoms. 03/14/2020. No acute events overnight. Patient reported significant improvement of his symptoms, feeling much better than yesterday, has not had any problems since yesterday, denies any abdominal pain, nausea, vomiting, diarrhea, constipation. Is tolerating his p.o. intake. Reason For Visit: NAUSEA, VOMITING, DIARRHEA, HYPERKALEMIA Physical Exam Vital Signs: Temp Pulse Resp BP Pulse Ox 97.9 F 56 L 20 149/53 H 99 03/14/20 11:00 03/14/20 11:00 03/14/20 11:00 03/14/20 11:00 03/14/20 11:00 Intake & Output 03/13/20 03/14/20 03/15/20 06:59 06:59 06:59 Intake Total 2718 220 Output Total 400 Balance 2318 220 Weight 90.6 kg General appearance: PRESENT: no acute distress, obese, well-developed, well- nourished Head exam: PRESENT: atraumatic, normocephalic Respiratory exam: PRESENT: clear to auscultation anamika. ABSENT: rales, rhonchi, wheezes Cardiovascular exam: PRESENT: RRR. ABSENT: diastolic murmur, rubs, systolic murmur GI/Abdominal exam: PRESENT: normal bowel sounds, soft, tenderness. ABSENT: distended, guarding, mass, organolmegaly, rebound Neurological exam: PRESENT: alert, awake, oriented to person, oriented to place, oriented to time, oriented to situation, CN II-XII grossly intact. ABSENT: motor sensory deficit Results Laboratory Results: 03/14/20 04:19 03/14/20 04:19 03/13/20 03/13/20 03/13/20 12:10 12:10 14:00 WBC 9.8 RBC 5.07 Hgb 14.6 Hct 42.9 MCV 85 MCH 28.9 MCHC 34.1 RDW 14.0 Plt Count 223 Seg Neutrophils % 88.7 H Sodium 140.6 Potassium 5.4 H Chloride 106 Carbon Dioxide 18 L Anion Gap 17 BUN 33 H Creatinine 1.87 H Est GFR ( Amer) 43 L Glucose 113 H Calcium 10.2 Phosphorus Magnesium Total Bilirubin 1.1 AST 24 Alkaline Phosphatase 116 Total Protein 7.9 Albumin 5.1 H Lipase 55.3 Urine Color YELLOW Urine Appearance CLEAR Urine pH 5.0 Ur Specific [place] 1.021 Urine Protein 30 H Urine Glucose (UA) NEGATIVE Urine Ketones 80 H Urine Blood NEGATIVE Urine Nitrite NEGATIVE Ur Leukocyte Esterase NEGATIVE Urine WBC (Auto) 1 Urine RBC (Auto) 0 03/13/20 03/14/20 03/14/20 18:10 04:19 04:19 WBC 7.8 RBC 4.24 L Hgb 12.5 L D Hct 35.3 L MCV 83 MCH 29.4 MCHC 35.3 RDW 14.0 Plt Count 185 Seg Neutrophils % 72.5 Sodium 137.5 Potassium 4.7 Chloride 109 H Carbon Dioxide 19 L Anion Gap 10 BUN 24 H Creatinine 1.38 H Est GFR ( Amer) > 60 Glucose 94 Calcium 9.0 Phosphorus 2.6 Magnesium 1.5 L Total Bilirubin 1.0 AST 20 Alkaline Phosphatase 86 Total Protein 6.4 Albumin 3.8 Lipase Urine Color YELLOW Urine Appearance CLEAR Urine pH 5.0 Ur Specific [place] 1.018 Urine Protein NEGATIVE Urine Glucose (UA) 50 H Urine Ketones 80 H Urine Blood SMALL H Urine Nitrite Ur Leukocyte Esterase Urine WBC (Auto) Urine RBC (Auto) 0 Impressions: Abdomen/Pelvis CT 03/13/20 12:35 IMPRESSION: 1. No acute abnormality of the abdomen or pelvis to explain the patient's symptoms. 2. Indeterminate exophytic 4 cm mass at the superior pole right kidney. Further evaluation with renal protocol MRI or CT is recommended for complete characterization. This can be done on a nonemergent basis. 3. Fat containing ventral hernia. Assessment and Plan - Diagnosis (1) Nausea vomiting and diarrhea Is this a current diagnosis for this admission?: Yes Plan: Improving. Has not had any recurrence of diarrhea since admission. Likely gastroenteritis or C. difficile colitis given history of recent antibiotic use. Tested negative for COVID-19 as of 03/09/2020. Continue volume resuscitation guided by volume status, empiric IV antibiotics, monitor electrolytes and replace as needed. Pending stool ova and parasite, stool culture, C. difficile toxin. (2) Acute kidney injury superimposed on CKD Is this a current diagnosis for this admission?: Yes Plan: Improving. Creatinine 1.38. Prerenal most likely due to dehydration caused by nausea vomiting diarrhea. Continue cautious volume restriction guided by volume status, strict in and out, monitor electrolytes and replace as needed, avoid nephrotoxic meds. (3) HTN (hypertension) Qualifiers: Hypertension type: essential hypertension Qualified Code(s): I10 - Essential (primary) hypertension Is this a current diagnosis for this admission?: Yes Plan: Resume home meds. Adjust meds as needed. (4) Hyperkalemia Is this a current diagnosis for this admission?: Yes Plan: Likely due to BHUPENDRA on CKD. No acute EKG change. Admit to telemetry, hyperkalemia protocol. Potassium level tomorrow. (5) CAD (coronary artery disease) Is this a current diagnosis for this admission?: Yes Plan: Denies any anginal symptoms. History of CABG 27 years ago. Resume home meds. Outpatient PCP and cardiology follow-up. (6) Diabetes Qualifiers: Diabetes mellitus type: type 2 Is this a current diagnosis for this admission?: Yes Plan: Diabetic diet, sliding scale insulin, basal insulin, correctional insulin, hy poglycemic protocol, Accu-Chek. Resume home meds upon discharge.
[2020-03-14] MEDS ORDERED: NIACIN 1000 MG PO SCH (22:00)
[2020-03-14] MEDS: EZETIMIBE 10 MG TABLET PO SCH (22:35)
[2020-03-14] MEDS: PRAMIPEXOLE DI-HCL 0.5 MG TABLET PO SCH (22:35)
[2020-03-14] MEDS: PANTOPRAZOLE SODIUM 40 MG TABLET.DR PO SCH (22:36)
[2020-03-14] MEDS: SIMVASTATIN 40 MG TABLET PO SCH (22:36)
[2020-03-15] MEDS: METRONIDAZOLE 500 MG/NS RTU 500 MG/100 ML RTUPB IV SCH ×5 (00:57→23:04)
[2020-03-15 07:00] LABS: ANION GAP 6 (5-19); BLOOD UREA NITROGEN 15 mg/dL (7-20); CALCIUM 9.1 mg/dL (8.4-10.2); CARBON DIOXIDE 22 mmol/L (22-30); CHLORIDE 108 mmol/L (98-107); GLUCOSE 91 mg/dL (75-110); POTASSIUM 4.6 mmol/L (3.6-5.0)
[2020-03-15] MEDS: NORMAL SALINE 1000 ML 1,000 ML IV PRN (07:51)
[2020-03-15] MEDS: ONDANSETRON HCL INJ/PF 4 MG/2 ML SDV IV PRN (07:55)
[2020-03-15] MEDS: INSULIN LISPRO 100 UNIT/ML 3 ML VIAL SUBCUT SCH ×4 (08:00→21:14)
[2020-03-15] MEDS: CIPROFLOXACIN 400 MG/D5W RTU 400 MG/200 ML RTUPB IV SCH ×2 (09:57→21:08)
[2020-03-15] MEDS: ENOXAPARIN SODIUM INJ 30 MG/0.3 ML DISP.SYRIN SUBCUT SCH (09:57)
[2020-03-15] MEDS: FAMOTIDINE 20 MG TABLET PO SCH ×2 (09:57→21:09)
[2020-03-15] MEDS: MAGNESIUM SULFATE/D5W 1 GM/100 ML RTUPB IV SCH ×2 (10:08→12:19)
[2020-03-15] MEDS ORDERED: NORMAL SALINE 1000 ML 1,000 ML IV PRN (11:21)
--- NOTE | 2020-03-15 11:33 | PDOC PROGRESS REPORT ---
Subjective Progress Note for:: 03/15/20 Subjective:: 69 year old male past medical history of diabetes, hypertension, CAD status post CABG x27 years CKD, presenting to ED for recurrent nausea, vomiting, diarrhea 20 pounds of weight loss for the last 10 days. Patient diarrhea restarted 2 days ago, has been having about 3-4 bowel movements a day, diarrhea is nonbloody, does not float in the toilet, does not have any m ucus, is mostly watery, foul-smelling, it is associated with constant nausea and post prandial vomiting with epigastric abdominal pain which is explained as dull, constant, worse with eating, nonradiating, associated with generalized muscle ache and fatigue. Patient denies any recent travel, eating any raw food or going to any new restaurants, being exposed to anybody with similar symptoms. His partner was recently tested for COVID which came back negative, patient was also tested for COVID here at [facility] on 03/09/2020 which also came back negative. Patient stating that he is having some dental issues and was prescribed Augmentin and penicillin by his dentist for 10 and 7 days respectively. Denies any fever, chills, shortness of breath, chest pain, headache, urinary symptoms. 03/14-03/14/2020. No acute events overnight. Patient reported significant improvement of his symptoms, feeling much better than yesterday, has not had any problems since yesterday, denies any abdominal pain, nausea, vomiting, diarrhea, constipation. Is tolerating his p.o. intake. 03/15/2020-no acute events in the last 24 hours. Complains of nausea with diet. Does not have any bowel movement at this time. BHUPENDRA resolved. Blood pressure is 140/60. Presently on IV fluids normal saline at 120 cc/h to decrease IV fluids to 50 cc/h from today. Plan is to repeat the labs tomorrow. To arrange for a KUB today. Reason For Visit: NAUSEA, VOMITING, DIARRHEA, HYPERKALEMIA Physical Exam Vital Signs: Temp Pulse Resp BP Pulse Ox 97.6 F 56 L 16 145/53 H 98 03/15/20 06:36 03/15/20 09:21 03/15/20 09:21 03/15/20 06:36 03/15/20 09:21 Intake & Output 03/14/20 03/15/20 03/16/20 06:59 06:59 06:59 Intake Total 2718 3020 Output Total 400 Balance 2318 3020 Weight 90.6 kg 90.6 kg General appearance: PRESENT: no acute distress, cooperative, well-developed Head exam: PRESENT: atraumatic Eye exam: PRESENT: PERRLA Ear exam: PRESENT: normal external ear exam Mouth exam: PRESENT: neck supple Teeth exam: PRESENT: poor dentation Neck exam: ABSENT: carotid bruit, JVD, lymphadenopathy, thyromegaly Respiratory exam: PRESENT: decreased breath sounds Cardiovascular exam: PRESENT: RRR. ABSENT: diastolic murmur, rubs, systolic murmur GI/Abdominal exam: PRESENT: normal bowel sounds, soft. ABSENT: distended, guarding, mass, organolmegaly, rebound, tenderness Rectal exam: PRESENT: deferred Extremities exam: PRESENT: full ROM. ABSENT: calf tenderness, clubbing, pedal edema Neurological exam: PRESENT: alert, awake, oriented to person, oriented to place, oriented to time, oriented to situation, CN II-XII grossly intact. ABSENT: motor sensory deficit Psychiatric exam: PRESENT: appropriate affect, normal mood. ABSENT: homicidal ideation, suicidal ideation Results Laboratory Results: 03/14/20 04:19 03/15/20 05:57 03/15/20 05:57 Sodium 136.1 L Potassium 4.6 Chloride 108 H Carbon Dioxide 22 Anion Gap 6 BUN 15 Creatinine 1.03 Est GFR ( Amer) > 60 Glucose 91 Calcium 9.1 Magnesium 1.5 L Impressions: Abdomen/Pelvis CT 03/13/20 12:35 IMPRESSION: 1. No acute abnormality of the abdomen or pelvis to explain the patient's symptoms. 2. Indeterminate exophytic 4 cm mass at the superior pole right kidney. Further evaluation with renal protocol MRI or CT is recommended for complete characteri zation. This can be done on a nonemergent basis. 3. Fat containing ventral hernia. Assessment and Plan - Diagnosis (1) Nausea vomiting and diarrhea Is this a current diagnosis for this admission?: Yes Plan: Improving. Has not had any recurrence of diarrhea since admission. Likely gastroenteritis or C. difficile colitis given history of recent antibiotic use. Tested negative for COVID-19 as of 03/09/2020. Continue volume resuscitation guided by volume status, empiric IV antibiotics, monitor electrolytes and replace as needed. Pending stool ova and parasite, stool culture, C. difficile toxin. 03/15/2020-patient is still complaining of nausea with the diet. No diarrhea noticed since admission. BHUPENDRA is resolved. Afebrile. C. difficile is unlikely. Patient is receiving Cipro floxacillin and Flagyl at this time. (2) Acute kidney injury superimposed on CKD Is this a current diagnosis for this admission?: Yes Plan: Improving. Creatinine 1.38. Prerenal most likely due to dehydration caused by nausea vomiting diarrhea. Continue cautious volume restriction guided by volume status, strict in and out, monitor electrolytes and replace as needed, avoid nephrotoxic meds. 03/15/2020-patient came in with serum creatinine 1.87 today creatinine is 1.03. Acute kidney injury is resolved. Plan is to decrease the fluids to 50 cc/h from today. (3) HTN (hypertension) Qualifiers: Hypertension type: essential hypertension Qualified Code(s): I10 - Essential (primary) hypertension Is this a current diagnosis for this admission?: No Plan: Resume home meds. Adjust meds as needed. 03/15/2020-patient has history of hypertension he is on lisinopril and furosemide at home to resume lisinopril and to continue to hold furosemide at this time. Pressure this morning is 140/60. (4) Hyperkalemia Is this a current diagnosis for this admission?: Yes Plan: Likely due to BHUPENDRA on CKD. No acute EKG change. Admit to telemetry, hyperkalemia protocol. Potassium level tomorrow. 03/15/2020-patient came in with hyperkalemia latest serum potassium is 4.6 hyperkalemia is resolved. (5) Diabetes Qualifiers: Diabetes mellitus type: type 2 Is this a current diagnosis for this admission?: No Plan: Diabetic diet, sliding scale insulin, basal insulin, correctional insulin, hypoglycemic protocol, Accu-Chek. Resume home meds upon discharge. 03/15/2020-patient has history of type 2 diabetes mellitus on metformin presently on insulin sliding scale. Blood sugar is 96. To check for hemoglobin A1c, diet exercise weight loss lifestyle modifications discussed with the patient. (6) CAD (coronary artery disease) Is this a current diagnosis for this admission?: No Plan: Denies any anginal symptoms. History of CABG 27 years ago. Resume home meds. Outpatient PCP and cardiology follow-up. (7) Hypomagnesemia Is this a current diagnosis for this admission?: Yes Plan: 03/15/2020-serum magnesium today is 1.5 to give 2 g of IV magnesium today. Plan is to recheck labs tomorrow.
--- NOTE | 2020-03-15 16:08 | RADIOLOGY REPORT (SQ) ---
EXAM DESCRIPTION: KUB/ABDOMEN (SINGLE VIEW) IMAGES COMPLETED DATE/TIME: 03/15/2020 3:24 pm REASON FOR STUDY: abd pain N17.9 ACUTE KIDNEY FAILURE, UNSPECIFIED E08.22 DIABETES DUE TO UNDRL CO ND W DIABETIC CHRONIC KIDNEY COMPARISON: None. NUMBER OF VIEWS: One view. TECHNIQUE: Supine radiographic image of the abdomen acquired. LIMITATIONS: None. FINDINGS: BOWEL GAS PATTERN: Normal bowel gas pattern. No dilated loops. CALCIFICATIONS: No suspicious calcifications. SOFT TISSUES: No gross mass or suggestion of organomegaly. HARDWARE: None in the abdomen. BONES: No acute fracture. No worrisome bone lesions. OTHER: No other significant finding. IMPRESSION: NO RADIOGRAPHIC EVIDENCE FOR ACUTE ABDOMINAL DISEASE. TECHNICAL DOCUMENTATION: JOB ID: [id number] [employer]- All Rights Reserved Reading location - IP/workstation name: [email or web address]
[2020-03-15] MEDS: SIMVASTATIN 40 MG TABLET PO SCH (21:09)
[2020-03-15] MEDS: PRAMIPEXOLE DI-HCL 0.5 MG TABLET PO SCH (21:09)
[2020-03-15] MEDS: EZETIMIBE 10 MG TABLET PO SCH (21:09)
[2020-03-15] MEDS ORDERED: ASPIRIN 325 MG TABLET, ENT COATED PO SCH (22:00)
[2020-03-16] MEDS: METRONIDAZOLE 500 MG/NS RTU 500 MG/100 ML RTUPB IV SCH ×2 (05:13→11:32)
[2020-03-16 05:55] LABS: ABSOLUTE BASOPHILS # (AUTO) 0.1 10^3/uL (0.0-0.2); ABSOLUTE EOSINOPHILS # (AUTO) 0.4 10^3/uL (0.0-0.6); ABSOLUTE LYMPHOCYTES (AUTO) 1.4 10^3/uL (0.5-4.7); ABSOLUTE MONOCYTES (AUTO) 0.8 10^3/uL (0.1-1.4); ABSOLUTE NEUT (AUTO) 5.5 10^3/uL (1.7-8.2); BASOPHILS % (AUTO) 0.6 % (0-2); EOSINOPHILS % (AUTO) 4.5 % (0-6); HEMATOCRIT 36.9 % (37.9-51.0); HEMOGLOBIN 12.8 g/dL (13.5-17.0); LYMPHOCYTES % (AUTO) 16.9 % (13-45); MEAN CORPUSCULAR HEMOGLOBIN 28.8 pg (27.0-33.4); MEAN CORPUSCULAR HGB CONC 34.6 g/dL (32.0-36.0); MEAN CORPUSCULAR VOLUME 83 fl (80-97); MONOCYTES % (AUTO) 9.5 % (3-13); PLATELET COUNT 174 10^3/uL (150-450); RED BLOOD COUNT 4.43 10^6/uL (4.35-5.55); SEGMENTED NEUTROPHILS % (AUTO) 68.5 % (42-78); TOTAL CELLS COUNTED % (AUTO) 100 %
[2020-03-16 06:20] LABS: ALBUMIN 3.9 g/dL (3.5-5.0); ALKALINE PHOSPHATASE 83 U/L (38-126); ANION GAP 7 (5-19); ASPARTATE AMINO TRANSFERASE 26 U/L (17-59); BILIRUBIN,DIRECT 0.1 mg/dL (0.0-0.4); BILIRUBIN,TOTAL 0.7 mg/dL (0.2-1.3); BLOOD UREA NITROGEN 11 mg/dL (7-20); CALCIUM 9.3 mg/dL (8.4-10.2); CARBON DIOXIDE 23 mmol/L (22-30); CHLORIDE 108 mmol/L (98-107); GLUCOSE 96 mg/dL (75-110); POTASSIUM 4.6 mmol/L (3.6-5.0); TOTAL PROTEIN 6.5 g/dL (6.3-8.2)
[2020-03-16] MEDS: INSULIN LISPRO 100 UNIT/ML 3 ML VIAL SUBCUT SCH ×2 (07:31→11:31)
[2020-03-16] MEDS: FAMOTIDINE 20 MG TABLET PO SCH (09:45)
[2020-03-16] MEDS: CIPROFLOXACIN 400 MG/D5W RTU 400 MG/200 ML RTUPB IV SCH (09:45)
[2020-03-16] MEDS: ENOXAPARIN SODIUM INJ 30 MG/0.3 ML DISP.SYRIN SUBCUT SCH (09:45)
[2020-03-16] MEDS ORDERED: LISINOPRIL 10 MG TABLET PO SCH (10:00)
[2020-03-16 14:03] VITALS: BP 143/55
--- NOTE | 2020-03-17 12:48 | PDOC DISCHARGE SUMMARY ---
Impression - Admit/DC Date/PCP Admission Date/Primary Care Provider: 03/15/20 12:54 ASHER LUDWIG MD Discharge Date: 03/16/20 - Discharge Diagnosis (1) Nausea vomiting and diarrhea Is this a current diagnosis for this admission?: Yes (2) Acute kidney injury superimposed on CKD Is this a current diagnosis for this admission?: Yes (3) HTN (hypertension) Is this a current diagnosis for this admission?: No (4) Hyperkalemia Is this a current diagnosis for this admission?: Yes (5) Diabetes Is this a current diagnosis for this admission?: No (6) CAD (coronary artery disease) Is this a current diagnosis for this admission?: No (7) Hypomagnesemia Is this a current diagnosis for this admission?: Yes - Assessment Summary: (1) Nausea vomiting and diarrhea Is this a current diagnosis for this admission?: Yes Plan: Improving. Has not had any recurrence of diarrhea since admission. Likely gastroenteritis or C. difficile colitis given history of recent antibiotic use. Tested negative for COVID-19 as of 03/09/2020. Continue volume resuscitation guided by volume status, empiric IV antibiotics, monitor electrolytes and replace as needed. Pending stool ova and parasite, stool culture, C. difficile toxin. 03/15/2020-patient is still complaining of nausea with the diet. No diarrhea noticed since admission. BHUPENDRA is resolved. Afebrile. C. difficile is unlikely. Patient is receiving Cipro floxacillin and Flagyl at this time. 03/16/2020-nausea vomiting is resolved. Patient is going home without antibiotic therapy. And is afebrile blood pressures are stable. (2) Acute kidney injury superimposed on CKD Is this a current diagnosis for this admission?: Yes Plan: Improving. Creatinine 1.38. Prerenal most likely due to dehydration caused by nausea vomiting diarrhea. Continue cautious volume restriction guided by volume status, strict in and out, monitor electrolytes and replace as needed, avoid nephrotoxic meds. 03/15/2020-patient came in with serum creatinine 1.87 today creatinine is 1.03. Acute kidney injury is resolved. Plan is to decrease the fluids to 50 cc/h from today. 03/16/2020-admission serum creatinine is 1.87, latest creatinine is 1.03. Acute kidney injury secondary to nausea and vomiting resolved. (3) HTN (hypertension) Qualifiers: Hypertension type: essential hypertension Qualified Code(s): I10 - Essential (primary) hypertension Is this a current diagnosis for this admission?: No Plan: Resume home meds. Adjust meds as needed. 03/15/2020-patient has history of hypertension he is on lisinopril and furosemide at home to resume lisinopril and to continue to hold furosemide at this time. Pressure this morning is 140/60. 03/16/2020-blood pressure is 143/55. Stable (4) Hyperkalemia Is this a current diagnosis for this admission?: Yes Plan: Likely due to BHUPENDRA on CKD. No acute EKG change. Admit to telemetry, hyperkalemia protocol. Potassium level tomorrow. 03/15/2020-patient came in with hyperkalemia latest serum potassium is 4.6 hyperkalemia is resolved. 03/16/2020 Latest serum potassium is 4.6 hyperkalemia is resolved. (5) Diabetes Qualifiers: Diabetes mellitus type: type 2 Is this a current diagnosis for this admission?: No Plan: Diabetic diet, sliding scale insulin, basal insulin, correctional insulin, hypog lycemic protocol, Accu-Chek. Resume home meds upon discharge. 03/15/2020-patient has history of type 2 diabetes mellitus on metformin presently on insulin sliding scale. Blood sugar is 96. To check for hemoglobin A1c, diet exercise weight loss lifestyle modifications discussed with the patient. 03/16/2020-latest blood sugar is 156. Hemoglobin A1c 6.5. Patient is advised to continue the present medications at home. (6) CAD (coronary artery disease) Is this a current diagnosis for this admission?: No Plan: Denies any anginal symptoms. History of CABG 27 years ago. Resume home meds. Outpatient PCP and cardiology follow-up. (7) Hypomagnesemia Is this a current diagnosis for this admission?: Yes Plan: 03/15/2020-serum magnesium today is 1.5 to give 2 g of IV magnesium today. Plan is to recheck labs tomorrow. - Additional Information Resuscitation Status: Full Code Discharge Diet: Diabetic Discharge Activity: Activity As Tolerated Referrals: ASHER LUDWIG MD [Primary Care Provider] - 04/04/20 2:00 pm Home Medications: Lisinopril [Prinivil 10 mg Tablet] 10 mg PO DAILY 05/23/18 Niacin [Niaspan] 1,000 mg PO QHS 05/23/18 Pramipexole Di-HCl [Mirapex 0.5 mg Tablet] 0.5 mg PO QHS #3 tablet 03/21/19 Ezetimibe/Simvastatin [Ezetimibe-Simvastatin 10-80 mg] 1 tab PO QHS 04/05/19 Rabeprazole Sodium 20 mg PO Q6AM 03/13/20 Aspirin [Ecotrin 325 mg EC Tablet] 325 mg PO QHS 03/14/20 History of Present Illiness History of Present Illness: 69 year old male past medical history of diabetes, hypertension, CAD status post CABG x27 years CKD, presenting to ED for recurrent nausea, vomiting, diarrhea 20 pounds of weight loss for the last 10 days. Patient diarrhea restarted 2 days ago, has been having about 3-4 bowel movements a day, diarrhea is nonbloody, does not float in the toilet, does not have any mucus, is mostly watery, foul-smelling, it is associated with constant nausea and post prandial vomiting with epigastric abdominal pain which is explained as dull, constant, worse with eating, nonradiating, associated with generalized muscle ache and fatigue. Patient denies any recent travel, eating any raw food or going to any new restaurants, being exposed to anybody with similar symptoms. His partner was recently tested for COVID which came back negative, patient was also tested for COVID here at [facility] on 03/09/2020 which also came back negative. Patient stating that he is having some dental issues and was prescribed Augmentin and penicillin by his dentist for 10 and 7 days respectively. Denies any fever, chills, shortness of breath, chest pain, headache, urinary symptoms. Hospital Course Hospital Course: 69 year old male past medical history of diabetes, hypertension, CAD status post CABG x27 years CKD, presenting to ED for recurrent nausea, vomiting, diarrhea 20 pounds of weight loss for the last 10 days. Patient diarrhea restarted 2 days ago, has been having about 3-4 bowel movements a day, diarrhea is nonbloody, does not float in the toilet, does not have any mucus, is mostly watery, foul-smelling, it is associated with constant nausea and post prandial vomiting with epigastric abdominal pain which is explained as dull, constant, worse with eating, nonradiating, associated with generalized muscle ache and fatigue. Patient denies any recent travel, eating any raw food or going to any new restaurants, being exposed to anybody with similar symptoms. His partner was recently tested for COVID which came back negative, patient was also tested for COVID here at [facility] on 03/09/2020 which also came back negative. Patient stating that he is having some dental issues and was prescribed Au gmentin and penicillin by his dentist for 10 and 7 days respectively. Denies any fever, chills, shortness of breath, chest pain, headache, urinary symptoms. 03/14-03/14/2020. No acute events overnight. Patient reported significant improvement of his symptoms, feeling much better than yesterday, has not had any problems since yesterday, denies any abdominal pain, nausea, vomiting, diarrhea, constipation. Is tolerating his p.o. intake. 03/15/2020-no acute events in the last 24 hours. Complains of nausea with diet. Does not have any bowel movement at this time. BHUPENDRA resolved. Blood pressure is 140/60. Presently on IV fluids normal saline at 120 cc/h to decrease IV fluids to 50 cc/h from today. Plan is to repeat the labs tomorrow. To arrange for a KUB today. [id number]-old male admitted with BHUPENDRA secondary to nausea and vomiting's. Nausea and vomiting is resolved AKA resolved. Patient vital signs are stable. Patient is discharged today advised to continue his home medications and follow- up with primary care physician next week. Physical Exam Vital Signs: Temp Pulse Resp BP Pulse Ox 97.8 F 60 17 143/55 H 99 03/16/20 13:56 03/16/20 13:56 03/16/20 13:56 03/16/20 13:56 03/16/20 13:56 Intake & Output 03/16/20 03/17/20 03/18/20 06:59 06:59 06:59 Intake Total 2470 720 Output Total 1989 Balance 480 720 Weight 70.9 kg General appearance: PRESENT: no acute distress, well-developed Head exam: PRESENT: atraumatic Eye exam: PRESENT: PERRLA Teeth exam: PRESENT: poor dentation Neck exam: ABSENT: carotid bruit, JVD, lymphadenopathy, thyromegaly Respiratory exam: PRESENT: decreased breath sounds Cardiovascular exam: PRESENT: RRR. ABSENT: diastolic murmur, rubs, systolic murmur GI/Abdominal exam: PRESENT: normal bowel sounds, soft. ABSENT: distended, guarding, mass, organolmegaly, rebound, tenderness Rectal exam: PRESENT: deferred Extremities exam: PRESENT: full ROM. ABSENT: calf tenderness, clubbing, pedal edema Neurological exam: PRESENT: alert, awake, oriented to person, oriented to place, oriented to time, oriented to situation, CN II-XII grossly intact. ABSENT: motor sensory deficit Psychiatric exam: PRESENT: appropriate affect, normal mood. ABSENT: homicidal ideation, suicidal ideation Results Laboratory Results: WBC 8.0 10^3/uL (4.0-10.5) 03/16/20 05:04 RBC 4.43 10^6/uL (4.35-5.55) 03/16/20 05:04 Hgb 12.8 g/dL (13.5-17.0) L 03/16/20 05:04 Hct 36.9 % (37.9-51.0) L 03/16/20 05:04 MCV 83 fl (80-97) 03/16/20 05:04 MCH 28.8 pg (27.0-33.4) 03/16/20 05:04 MCHC 34.6 g/dL (32.0-36.0) 03/16/20 05:04 RDW 14.0 % (11.5-14.0) 03/16/20 05:04 Plt Count 174 10^3/uL (150-450) 03/16/20 05:04 Lymph % (Auto) 16.9 % (13-45) 03/16/20 05:04 [place] % (Auto) 9.5 % (3-13) 03/16/20 05:04 Eos % (Auto) 4.5 % (0-6) 03/16/20 05:04 Baso % (Auto) 0.6 % (0-2) 03/16/20 05:04 Absolute Neuts (auto) 5.5 10^3/uL (1.7-8.2) 03/16/20 05:04 Absolute Lymphs (auto) 1.4 10^3/uL (0.5-4.7) 03/16/20 05:04 Absolute Monos (auto) 0.8 10^3/uL (0.1-1.4) 03/16/20 05:04 Absolute Eos (auto) 0.4 10^3/uL (0.0-0.6) 03/16/20 05:04 Absolute Basos (auto) 0.1 10^3/uL (0.0-0.2) 03/16/20 05:04 Seg Neutrophils % 68.5 % (42-78) 03/16/20 05:04 Sodium 137.8 mmol/L (137-145) 03/16/20 05:04 Potassium 4.6 mmol/L (3.6-5.0) 03/16/20 05:04 Chloride 108 mmol/L (98-107) H 03/16/20 05:04 Carbon Dioxide 23 mmol/L (22-30) 03/16/20 05:04 Anion Gap 7 (5-19) 03/16/20 05:04 BUN 11 mg/dL (7-20) 03/16/20 05:04 Creatinine 1.03 mg/dL (0.52-1.25) 03/16/20 05:04 Est GFR ( Amer) > 60 (>60) 03/16/20 05:04 Est GFR (MDRD) Non-Af > 60 (>60) 03/16/20 05:04 Glucose 96 mg/dL (75-110) 03/16/20 05:04 POC Glucose 156 mg/dL (70-110) H 03/16/20 11:21 Hemoglobin A1c % 6.5 % (4.7-6.0) H 03/15/20 05:57 Calcium 9.3 mg/dL (8.4-10.2) 03/16/20 05:04 Phosphorus 2.6 mg/dL (2.5-4.5) 03/14/20 04:19 Magnesium 1.7 mg/dL (1.6-2.3) 03/16/20 05:04 Total Bilirubin 0.7 mg/dL (0.2-1.3) 03/16/20 05:04 Direct Bilirubin 0.1 mg/dL (0.0-0.4) 03/16/20 05:04 Neonat Total Bilirubin Not Reportable 03/16/20 05:04 Neonat Direct Bilirubin Not Reportable 03/16/20 05:04 Neonat Indirect Bili Not Reportable 03/16/20 05:04 AST 26 U/L (17-59) 03/16/20 05:04 ALT 18 U/L (<50) 03/16/20 05:04 Alkaline Phosphatase 83 U/L (38-126) 03/16/20 05:04 Total Protein 6.5 g/dL (6.3-8.2) 03/16/20 05:04 Albumin 3.9 g/dL (3.5-5.0) 03/16/20 05:04 Lipase 55.3 U/L (23-300) 03/13/20 12:10 Urine Color YELLOW 03/13/20 18:10 Urine Appearance CLEAR 03/13/20 18:10 Urine pH 5.0 (5.0-9.0) 03/13/20 18:10 Ur Specific [place] 1.018 03/13/20 18:10 Urine Protein NEGATIVE mg/dL (NEGATIVE) 03/13/20 18:10 Urine Glucose (UA) 50 mg/dL (NEGATIVE) H 03/13/20 18:10 Urine Ketones 80 mg/dL (NEGATIVE) H 03/13/20 18:10 Urine Blood SMALL (NEGATIVE) H 03/13/20 18:10 Urine Nitrite NEGATIVE (NEGATIVE) 03/13/20 14:00 Urine Nitrite (Reflex) NEGATIVE (NEGATIVE) 03/13/20 18:10 Urine Bilirubin NEGATIVE (NEGATIVE) 03/13/20 18:10 Urine Urobilinogen NEGATIVE mg/dL (<2.0) 03/13/20 18:10 Ur Leukocyte Esterase NEGATIVE (NEGATIVE) 03/13/20 14:00 Leukocyte Esterase Rfl NEGATIVE (NEGATIVE) 03/13/20 18:10 Urine WBC (Auto) 1 /HPF 03/13/20 14:00 Urine RBC (Auto) 0 /HPF 03/13/20 18:10 U Hyaline Cast (Auto) 3 /LPF 03/13/20 18:10 Urine WBC (Reflex) < 1 /HPF 03/13/20 18:10 Urine Mucus (Auto) RARE /LPF 03/13/20 18:10 Urine Ascorbic Acid NEGATIVE (NEGATIVE) 03/13/20 18:10 Impressions: Abdomen/Pelvis CT 03/13/20 12:35 IMPRESSION: 1. No acute abnormality of the abdomen or pelvis to explain the patient's symptoms. 2. Indeterminate exophytic 4 cm mass at the superior pole right kidney. Further evaluation with renal protocol MRI or CT is recommended for complete characterization. This can be done on a nonemergent basis. 3. Fat containing ventral hernia. KUB X-Ray 03/15/20 00:00 IMPRESSION: NO RADIOGRAPHIC EVIDENCE FOR ACUTE ABDOMINAL DISEASE. Plan Plan of Treatment: 03/17/2020-patient admitted nausea vomiting symptoms are resolved. Patient is advised to be compliant with his medications and follow-up with primary care physician next week. Patient agreed and verbalized the response. Time Spent: Greater than 30 Minutes Stroke Is this a Stroke Patient?: No Acute Heart Failure - Is this a Heart Failure Patient?: No
== END 2020-03-16 14:19 | disposition home or self-care (01) | DRG 684 ==
LOC: ER 09:54 → INTOOBSV 15:08 → OBSVTOIN 15:08 → EH 15:08 → 4N 17:10 → OBSVTOIN 03-15 12:54
PROVIDERS: ADMIT Internal Medicine; ATTEND Internal Medicine
DX: N17.9 Acute kidney failure, unspecified (principal); E11.22 Type 2 diabetes mellitus with diabetic chronic kidney disease; R11.2 Nausea with vomiting, unspecified; R19.7 Diarrhea, unspecified; I12.9 Hypertensive chronic kidney disease with stage 1 through stage 4 chronic kidney disease, or unspecified chronic kidney disease; N18.9 Chronic kidney disease, unspecified; E87.5 Hyperkalemia; I25.10 Atherosclerotic heart disease of native coronary artery without angina pectoris; E83.42 Hypomagnesemia; E86.0 Dehydration; E78.5 Hyperlipidemia, unspecified; K21.9 Gastro-esophageal reflux disease without esophagitis; M16.12 Unilateral primary osteoarthritis, left hip; M47.9 Spondylosis, unspecified; R63.4 Abnormal weight loss; K08.9 Disorder of teeth and supporting structures, unspecified; Z79.82 Long term (current) use of aspirin; Z79.899 Other long term (current) drug therapy; Z95.1 Presence of aortocoronary bypass graft; I25.2 Old myocardial infarction; Z95.5 Presence of coronary angioplasty implant and graft; Z82.49 Family history of ischemic heart disease and other diseases of the circulatory system; Z83.42 Family history of familial hypercholesterolemia; Z79.84 Long term (current) use of oral hypoglycemic drugs; Z88.8 Allergy status to other drugs, medicaments and biological substances
CPT/HCPCS: 36415; 74018; 74176; 80048; 80053; 81001; 82962; 83036; 83690; 83735; 84100; 85025; 93005; 93010; 96361; 96374; 96376; 99285; G0378; J0744; J1650; J2405; J3475; J3490; J7030